=== PATIENT | male | born 1935 | race Caucasian/White ===

== ENCOUNTER → 2023-04-05 16:14 | Outpatient (REF) | payer MEDICARE, OTHER, SELFPAY ==
[2023-04-05 17:34] LABS: % Basophils 0.5 % (0-2); % Eosinophils 2.2 % (0-6); % Immature Granulocytes 0.5 % (0-0.5); % Lymphocytes 18.6 % (20.5-51.1); % Monocytes 9.3 % (1.7-9.3); % Neutrophils 68.9 % (42.2-75.2); Absolute Eosinophils 0.2 10^3/uL (0-0.7); Absolute Lymphocytes 1.4 10^3/uL (1.2-3.4); Absolute Monocytes 0.7 10^3/uL (0.1-0.6); Absolute Neutrophils 5.1 10^3/uL (1.4-6.5); Hematocrit 38.8 % (39.0-52.0); Hemoglobin 13.7 g/dL (13.0-18.0); Mean Corp Hgb Conc. 35.3 g/dL (33.0-37.0); Mean Corpuscular Hgb 32.5 pg (27.0-31.0); Mean Corpuscular Volume 91.9 fL (80.0-94.0); Mean Platelet Volume 9.9 fL (7.4-10.4); Nucleated Red Blood Cells % 0 % (-); Platelet Count 208 10^3/uL (130-400); Red Blood Cell Count 4.22 10^6/uL (4.70-6.10); White Blood Cell Count 7.4 10^3/uL (4.8-10.8)
[2023-04-05 17:57] LABS: ALT (SGPT) 26 U/L (0-50); AST (SGOT) 26 U/L (17-59); Albumin 4.3 g/dl (3.5-5.0); Alkaline Phosphatase 66 U/L (38-126); Blood Urea Nitrogen 19 mg/dl (9-20); Calcium 9.1 mg/dl (8.4-10.2); Carbon Dioxide 23 mmol/L (22-30); Chloride 104 mmol/L (98-107); Glucose 137 mg/dl (70-99); Iron 69 ug/dl (49-181); Potassium 3.6 mmol/L (3.5-5.1); Sodium 139 mmol/L (135-145); Total Bilirubin 0.9 mg/dl (0.2-1.3); Total Protein 7.3 g/dl (6.3-8.2); eGFR 48.65
[2023-04-05 18:06] LABS: Percent Saturation 22 % (20-50); Total Iron Binding Capacity 310 ug/dl (261-462)
== END ==
LOC: REG 16:14
PROVIDERS: ATTENDING PHYSICIAN Physician Assistant
DX: R05.8 Other specified cough (principal); R52 Pain, unspecified; R53.83 Other fatigue; D64.9 Anemia, unspecified
CPT/HCPCS: 36415; 71046; 80053; 82728; 83540; 83550; 85025

== ENCOUNTER → 2023-04-06 12:09 | Outpatient (REF) | payer MEDICARE, OTHER, SELFPAY ==
[2023-04-06 13:03] LABS: Urine Albumin Negative (Neg - Trace); Urine Bilirubin Negative (Negative); Urine Character Clear (Clear); Urine Color Yellow; Urine Glucose Negative (Negative); Urine Ketone Negative (Negative); Urine Leukocyte Negative (Negative); Urine Nitrite Negative (Negative); Urine Occult Blood Negative (Negative); Urine Urobilinogen Negative (Neg - 1+)
== END ==
LOC: REG 12:09
PROVIDERS: ATTENDING PHYSICIAN Physician Assistant
DX: R05.8 Other specified cough (principal); R52 Pain, unspecified; R53.83 Other fatigue; D64.9 Anemia, unspecified
CPT/HCPCS: 81003; 87086

== ENCOUNTER 2023-04-25 16:19 | Inpatient (IN) | payer MEDICARE, OTHER, SELFPAY ==
[2023-04-25] VITALS (11 sets, daily range): BP systolic 140–182; BP diastolic 66–83
[2023-04-25 12:21] LABS: % Basophils 0.3 % (0-2); % Eosinophils 2.6 % (0-6); % Immature Granulocytes 0.4 % (0-0.5); % Lymphocytes 12.9 % (20.5-51.1); % Neutrophils 66.8 % (42.2-75.2); Absolute Eosinophils 0.2 10^3/uL (0-0.7); Absolute Lymphocytes 0.9 10^3/uL (1.2-3.4); Absolute Monocytes 1.2 10^3/uL (0.1-0.6); Absolute Neutrophils 4.6 10^3/uL (1.4-6.5); Hematocrit 40.8 % (39.0-52.0); Hemoglobin 14.2 g/dL (13.0-18.0); Mean Corp Hgb Conc. 34.8 g/dL (33.0-37.0); Mean Corpuscular Hgb 32.1 pg (27.0-31.0); Mean Corpuscular Volume 92.1 fL (80.0-94.0); Mean Platelet Volume 10.1 fL (7.4-10.4); Nucleated Red Blood Cells % 0 % (-); Platelet Count 142 10^3/uL (130-400); Red Blood Cell Count 4.43 10^6/uL (4.70-6.10); Red Cell Dist. Width 13.7 % (11.5-14.5); White Blood Cell Count 6.8 10^3/uL (4.8-10.8)
[2023-04-25 12:29] LABS: ALT (SGPT) 39 U/L (0-50); AST (SGOT) 46 U/L (17-59); Albumin 4.7 g/dl (3.5-5.0); Alkaline Phosphatase 55 U/L (38-126); Blood Urea Nitrogen 21 mg/dl (9-20); Carbon Dioxide 26 mmol/L (22-30); Chloride 102 mmol/L (98-107); Glucose 128 mg/dl (70-99); Lipase 89 U/L (23-300); Potassium 3.8 mmol/L (3.5-5.1); Sodium 136 mmol/L (135-145); Total Bilirubin 0.7 mg/dl (0.2-1.3); Total Protein 7.9 g/dl (6.3-8.2); eGFR > 60.00
--- NOTE | 2023-04-25 14:07 | ED.GENMED ---
History of Present Illness
General
Chief Complaint: Abdominal Symptoms
Source: patient
Exam Limitations: none
Time Seen by Provider: 04/25/23 12:29
Nursing documentation reviewed up to this point in time: agreed with
Travel History
Have you had any contact with someone who has COVID-19?: Unable to Answer
Do you have any symptoms of coronavirus? Fever > 100 degrees, chills, cough, shortness of breath, sore throat, loss of taste or smell, muscle aches, or headache?: Unable to Answer
History of Present Illness
History of Present Illness:
88-year-old male from [place] presents to the ER for evaluation. Patient arrives via EMS. per at bedside patient does have a history of dementia. Patient over the past several days has been more confused not himself and today had several
episodes of vomiting diarrhea.
Patient awake alert. He is aware that he is at hospital he tells me his name and follows commands but he has no complaints.
Past History
Past History
ED Past Medical History: CHF, GERD, HTN, Hypercholesterolemia and Other ( Ulcerated hiatal hernia, Prostatitis, ischemic cardiomyopathy)
ED Past Surgical History: Cardiac (Biventricular ICD), Orthopedic (Hugh knee replacements) and Other (Hiatal hernia surgery)
Patient has exhibited threatening behavior?: No
PSI?: No
Social History
Tobacco: Non-smoker
Alcohol: Occasional
Drug: None
Personal:
Living: snf ([facility])
Employment: Retired
Family History
Family History: Other (Noncontributory)
Review of Systems
Review of Systems
Allergies reviewed?: Yes
Unable to obtain full review of systems at this time due to: dementia
Other source history: family
All Other Systems: ROS reviewed and negative except as documented in HPI and ROS
Constitutional: Reports fatigue
EENT: Reports no symptoms
Respiratory: Reports no symptoms
Cardiac: Reports no symptoms
ABD/GI: Reports vomiting and diarrhea
: Reports no symptoms
Musculoskeletal: Reports no symptoms
Skin: Reports no symptoms
Neurological: Reports other (increasing confusion )
Psychiatric: Reports no symptoms
Phy Exam
General Physical Exam
General Presentation: no apparent distress
General age: appears stated age
General Skin: warm and dry
General Habitus: elderly
General Mental: other (able to state name follows commands )
Cardiovascular Exam
Cardiovascular Exam: regular rate/rhythm
Pulmonary Exam
Pulmonary Exam: lungs clear and no respiratory distress
Neurological Exam
Neurological Exam: alert and other (Follows commands aware of his name and that he is in the hospital.)
Musculoskeletal Exam
Musculoskeletal Exam: full ROM
Skin Exam
Skin Exam: normal color and warm/dry
Psychiatric Exam
Psychiatric Exam: normal mood/affect
Course
Orders/Labs/Results
Orders:
Orders
04/25/23 12:08
EKG [Electrocardiogram (*1)] Urgent
Reason for Study: CAD
04/25/23 12:09
EKG- Treatment ONCE
04/25/23 12:10
Complete Blood Count/With Diff Urgent
Comprehensive Metabolic Panel Urgent
Lipase Urgent
04/25/23 14:12
COVID-19 Antigen Urgent
Source: Nasal Swab
04/25/23 14:13
Influenza A+B Rapid Molecular Urgent
LEATHA Source: Nasal Swab
Specimen Description:
04/25/23 14:20
UA Reflex to Culture [Urinalysis Reflex To Culture] Urgent
04/25/23 14:22
Straight cath- Treatment ONCE
04/25/23 15:08
NSS 500mL Bolus over 30 minutes 0.9% Sodium Chloride 500 ml [Nss] 500 ml IV BOLUS
Abnormal Lab Results
04/25/23 04/25/23
12:10 14:12
RBC 4.43 L 10^6/uL
(4.70-6.10)
MCH 32.1 H pg
(27.0-31.0)
Absolute Lymphs (auto) 0.9 L 10^3/uL
(1.2-3.4)
Absolute Monos (auto) 1.2 H 10^3/uL
(0.1-0.6)
Lymphocytes % 12.9 L %
(20.5-51.1)
Monocytes % 17.0 H %
(1.7-9.3)
BUN 21 H mg/dl
(9-20)
Glucose 128 H mg/dl
(70-99)
SARS-CoV-2 Antigen Positive A
(Negative)
04/25/23 12:10
04/25/23 12:10
Vital Signs
Initial and Last Documented VS:
Initial Vital Signs
BP
163/79
04/25/23 12:04
Last Documented Vital Signs
Temp Pulse Resp BP Pulse Ox
97.8 F 73 10 154/78 93
04/25/23 12:18 04/25/23 14:00 04/25/23 14:00 04/25/23 14:00 04/25/23 12:06
MDM/Problems Addressed
Differential Diagnosis Includes:
Not limited to viral syndrome dehydration COVID influenza
MDM/Problems Addressed:
Patient is a 88-year-old from [facility]. He lives with his staff does assist with certain things such as bathing and giving him his medications however he has not in [facility]. Patient presented with increasing confusion
weakness vomiting diarrhea for the past couple days decreased p.o. intake. Patient was found to be COVID-positive which explains his symptoms. Because he is very weak and not [facility] will admit.
Patient's labs are unremarkable.
Patient was giving small bolus of fluids
Chronic conditions affecting care:
Dementia now worsened by symptoms of COVID congestive heart failure. Patient is not tachycardic was given small bolus of fluids only
*Pulse Oximetry
Patient hypoxic: no
*EKG
Interpretation: abnormal
Heart Rate: 68
Rate: normal
Rhythm: other (Ventricular paced rhythm)
*Critical Care Note
Total Time (30-74mins, 75-104mins- exclusive of procedures): Not Applicable
ED Attending Note
-
Portions of this chart may have been created with voice recognition software.� Occasional wrong word or��sound alike� substitutions may have occurred due to the inherent limitations of voice recognition software.
Discharge Plan
Departure
Patient Disposition: Admit
Date of Disposition: 04/25/23
Time of Disposition: 15:01
Admit to: Med/Surg
Admit to doctor: hospitalist
Presentation/result/management discussed w/ accepting MD/DO: Hospitalist
Patient with high blood pressure during this ER visit?: Yes
Condition: Fair
Covid-19: Confirmed COVID-19
Discharge Problem:
COVID-19
Prescriptions:
No Action
simvastatin 40 MG tablet
40 mg PO QPM
omeprazole 40 MG capsule,delayed release(DR/EC)
40 mg PO BID
loperamide 2 MG capsule
2 mg PO Q4HPRN MDD 16mg(8tabs)/24hrs PRN (Reason: diarrhea)
acetaminophen [Tylenol Extra Strength] 500 MG tablet
1,000 mg PO BIDPRN PRN (Reason: mild pain)
tamsulosin 0.4 MG capsule
0.8 mg PO HS
nifedipine 60 MG tablet extended release
60 mg PO DAILY Qty: 30 0RF
sennosides [senna] 1 TABLET tablet
1 tab PO BIDPRN PRN (Reason: constipation)
metoprolol succinate [Toprol XL] 50 mg Tablet Extended Release 24 Hr
50 mg PO DAILY
donepezil 5 mg Tablet
5 mg PO DAILY
albuterol sulfate 2.5 mg /3 mL (0.083 %) Solution For Nebulization
2.5 mg INHALATION R Q4HPRN PRN (Reason: sob)
polyethylene glycol 3350 [Miralax] 17 gram Powder In Packet
17 g PO DAILYPRN PRN (Reason: constipation)
nystatin [Nyamyc] 100,000 unit/gram Powder
1 applic TOPICAL BIDPRN PRN (Reason: rash)
amoxicillin-pot clavulanate 875-125 mg Tablet
1 tab PO Q12 5 Days Qty: 10 0RF
furosemide [Lasix] 40 mg tablet
40 mg PO DAILY 30 Days Qty: 30 0RF
potassium chloride 20 mEq tablet extended release
20 meq PO DAILY 30 Days Qty: 30 0RF
Rx Instructions:
hold if not taking lasix
Referrals:
Richie Fonseca MD [Family Provider] -
Interventions
Interventions:
*Risk Screen - Suicide Last Done: 04/25/23 12:16
*General Assessment Last Done: 04/25/23 12:16
*Neglect/Abuse Screening Last Done: 04/25/23 12:16
ED- Fall Risk Assessment Last Done: 04/25/23 12:13
*ED COVID-19 Vaccine History Last Done: 04/25/23 12:18
WI-Dvnqyk-Oeguvfxiej Assessment Last Done: 04/25/23 12:13
[2023-04-25 14:25] LABS: COVID-19 Antigen Positive (Negative)
[2023-04-25] MEDS: NSS 500 IV (15:11)
--- NOTE | 2023-04-25 15:33 | HPS.HSE ---
Family Physician
-
Family Physician: Richie Fonseca
Chief Complaint
-
weakness
History of Present Illness
Mr. Parviz Howell is a 88 yo man with hx dementia (personal care resident at [place]), HFrEF s/p ICD, LBBB, CAD, HTN, HLD, left subclavian chronic vneous thrombosis, BPH presents to the ER with weakness and confusion.
History obtained from patient's as he's not able to elaborate. Patient has had progressive dementia. He developed URI symptoms on Sunday. He became increasingly disoriented and seems unbalanced. He normally walks with a walker. Patient had
several episodes of vomiting and diarrhea. + shortness of breath, + cough.
Medical History
Past Medical History
Past Medical History: Reports Other (nonischemic cardiomyopathy status post ICD, left bundle branch block, coronary artery disease, hypertension, hyperlipidemia, left subclavian chronic venous thrombosis, macular degeneration of right eye,
degenerative disc disease, fatty liver, GERD, melanoma, BPH,)
Past Surgical History: Reports Other ( Cardiac (Biventricular ICD), Orthopedic (Hugh knee replacements) and Other (Hiatal hernia surgery))
Social History
Tobacco: Non-smoker
Alcohol: None
Drug: None
Family History
Family History: Not pertinent
Allergies / Home Medications
Allergies reflects when Allergies were last updated in [facility].
Home Medications with original date entered in [facility]
Allergy/Medication List:
Allergies
Allergy/AdvReac Type Severity Reaction Status Date / Time
No Known Allergies Allergy Verified 04/25/23 12:11
Home Medications
simvastatin 40 mg tablet 40 mg PO QPM High cholesterol 03/07/10
omeprazole 40 mg capsule,delayed release 40 mg PO BID Gastrointestinal issue 04/07/16
acetaminophen 500 mg tablet (Tylenol Extra Strength) 1,000 mg PO BIDPRN PRN mild pain 05/26/21
tamsulosin 0.4 mg capsule 0.4 mg PO BID Urinary issue 05/26/21
nifedipine 60 mg tablet,extended release 60 mg PO DAILY #30 tabs 05/31/21
metoprolol succinate 50 mg tablet,extended release 24 hr (Toprol XL) 50 mg PO DAILY Blood Pressure 06/16/22
donepezil 5 mg tablet 5 mg PO DAILY Neurological Condition 01/26/23
furosemide 40 mg tablet (Lasix) 40 mg PO DAILY 30 days #30 tabs 01/30/23
aspirin 81 mg chewable tablet 81 mg PO DAILY 04/25/23
Review of Systems
-
Unable to obtain full review of systems at this time due to: Dementia
History Source: Patient
A 12 point ROS was completed and negative except as noted: Yes
Physical Exam
Vital Signs
Vital Signs
Temp Pulse Resp BP Pulse Ox
98 F 73 16 147/69 93
04/25/23 15:14 04/25/23 15:00 04/25/23 15:00 04/25/23 15:00 04/25/23 12:06
Physical Exam
General: Well Developed, Well Nourished and No Apparent Distress
HEENT: NormoCephalic, Moist mucous membranes and Atraumatic
Respiratory: Rales
Cardiac: S1/S2 and Regular Rhythm; No Murmur or Rub
GI: Soft, Non Tender, Non Distended and Normal Bowel Sounds; No Organomegaly
Rectal: Deferred by Provider
Musculoskeletal: No Clubbing, No Cyanosis and No Edema
Skin: No Rash
Neuro: Nonfocal/grossly intact
Psych: Calm, Confused and Apparent Dementia
Laboratory Results
-
04/25/23 12:10
04/25/23 12:10
Laboratory Results
Total Bilirubin 0.7 mg/dl (0.2-1.3) 04/25/23 12:10
AST 46 U/L (17-59) 04/25/23 12:10
ALT 39 U/L (0-50) 04/25/23 12:10
Alkaline Phosphatase 55 U/L (38-126) 04/25/23 12:10
Lipase 89 U/L (23-300) 04/25/23 12:10
Data Reviewed
-
Diagnostic Radiology: Report Reviewed by me
Lab Data: Labs Reviewed by me
Impression/Plan
-
Mr. Parviz Howell is a 88 yo man with hx dementia (personal care resident at [place]), HFrEF s/p ICD, LBBB, CAD, HTN, HLD, left subclavian chronic vneous thrombosis, BPH presents to the ER with weakness and confusion. Patient had several episodes
of vomiting and diarrhea.
Triage VS: T 97.8, P 73, RR 10, BP 154/78, SpO2 93%
LABS: WBC 6.8, Hg 14.2, PLT 142, Na 136, K+ 3.8, Cl 102, BUN 21, Cr 0.8, liver enzymes WNL, covid +, flu negative.
MAR: 1L IVF
Acute hypoxic respiratory insufficiency
Covid-19
Weakness
Vomiting/Diarrhea
-patient on 2L O2, saturating 93%
-admit to tele
-start decadron/remdesivir
-vitamin D
-PT/OT
-IVF given GI volume loss
-hold DIRECTOR OF PROGRAMMING lasix
Essential HTN
-DIRECTOR OF PROGRAMMING Metoprolol
-DIRECTOR OF PROGRAMMING Nifedipine
GERD
-DIRECTOR OF PROGRAMMING PPI
HLD
-DIRECTOR OF PROGRAMMING statin
CAD
-DIRECTOR OF PROGRAMMING asa/statin
BPH
-DIRECTOR OF PROGRAMMING Flomax
DVT PPx lovenox subQ
DNR - discussed with on admission
[2023-04-25] MEDS: DECADRON 6 MG IV (16:45)
[2023-04-25 17:31] LABS: Urine Albumin Trace (Neg - Trace); Urine Bilirubin Negative (Negative); Urine Character Clear (Clear); Urine Color Yellow; Urine Glucose Negative (Negative); Urine Ketone 1+ (Negative); Urine Leukocyte Negative (Negative); Urine Nitrite Negative (Negative); Urine Occult Blood Negative (Negative); Urine Urobilinogen Negative (Neg - 1+)
--- NOTE | 2023-04-25 18:27 | PTCARENOTE ---
Spoke with Symone [phone] for information on patient. Admissions assessment completed. states that she can be reached with any further questions at this number.
[2023-04-25] MEDS: LR 1000 IV (19:33)
[2023-04-25] MEDS: LIPITOR 20 MG PO (19:34)
[2023-04-25] MEDS: VEKLURY 250 MG IV (19:34)
[2023-04-25] MEDS: NSS 30 IV (19:34)
[2023-04-25] MEDS: MUCINEX 600 MG PO (19:34)
[2023-04-25] MEDS: PROTONIX 40 MG PO (19:35)
[2023-04-25] MEDS: LOVENOX 40 MG SC (19:35)
[2023-04-25] MEDS: FLOMAX 0.800000000000000044 MG PO (21:59)
[2023-04-26] VITALS (7 sets, daily range): BP systolic 137–158; BP diastolic 60–74; PULSE 82; O2SAT 96; BMI 33.6
[2023-04-26 06:16] LABS: % Immature Granulocytes 0.4 % (0-0.5); % Lymphocytes 13.1 % (20.5-51.1); % Monocytes 11.6 % (1.7-9.3); % Neutrophils 74.9 % (42.2-75.2); Absolute Lymphocytes 0.7 10^3/uL (1.2-3.4); Absolute Monocytes 0.7 10^3/uL (0.1-0.6); Absolute Neutrophils 4.2 10^3/uL (1.4-6.5); Hematocrit 37.9 % (39.0-52.0); Hemoglobin 13.1 g/dL (13.0-18.0); Mean Corp Hgb Conc. 34.6 g/dL (33.0-37.0); Mean Corpuscular Hgb 32.8 pg (27.0-31.0); Mean Corpuscular Volume 94.8 fL (80.0-94.0); Mean Platelet Volume 10.4 fL (7.4-10.4); Nucleated Red Blood Cells % 0 % (-); Platelet Count 132 10^3/uL (130-400); Red Cell Dist. Width 13.2 % (11.5-14.5); White Blood Cell Count 5.6 10^3/uL (4.8-10.8)
[2023-04-26 06:55] LABS: ALT (SGPT) 25 U/L (0-50); AST (SGOT) 29 U/L (17-59); Albumin 3.5 g/dl (3.5-5.0); Alkaline Phosphatase 47 U/L (38-126); Blood Urea Nitrogen 20 mg/dl (9-20); Calcium 8.5 mg/dl (8.4-10.2); Carbon Dioxide 26 mmol/L (22-30); Chloride 101 mmol/L (98-107); Estimated Creatinine Clearance 72 ml/min; Glucose 119 mg/dl (70-99); Magnesium 2.1 mg/dl (1.6-2.3); Potassium 3.4 mmol/L (3.5-5.1); Sodium 137 mmol/L (135-145); Total Bilirubin 0.5 mg/dl (0.2-1.3); Total Protein 6.2 g/dl (6.3-8.2); eGFR > 60.00
--- NOTE | 2023-04-26 08:00 | W.PN.HOSP.TC ---
Today's Communication/Plan
-
PT/OT
decadron/remdesivir
wean O2 as able
Assessment / Plan
Assessment / Plan
Mr. Parviz Howell is a 88 yo man with hx dementia (personal care resident at [place]), HFrEF s/p ICD, LBBB, CAD, HTN, HLD, left subclavian chronic vneous thrombosis, BPH presents to the ER with weakness and confusion.� Patient had several episodes
of vomiting and diarrhea.
Triage VS: T 97.8, P 73, RR 10, BP 154/78, SpO2 93%
LABS: WBC 6.8, Hg 14.2, PLT 142, Na 136, K+ 3.8, Cl 102, BUN 21, Cr 0.8, liver enzymes WNL, covid +, flu negative.
MAR: 1L IVF
Acute hypoxic respiratory insufficiency
Covid-19
Weakness
Vomiting/Diarrhea
-patient on 2L O2, saturating 93%
-admit to tele
-decadron/remdesivir day 2
-vitamin D
-PT/OT
-IVF off, patient eating/drinking well
-hold IMPLEMENTATION ADVISOR lasix one more day
Essential HTN
-IMPLEMENTATION ADVISOR Metoprolol
-IMPLEMENTATION ADVISOR Nifedipine
GERD
-IMPLEMENTATION ADVISOR PPI
HLD
-IMPLEMENTATION ADVISOR statin
CAD
-IMPLEMENTATION ADVISOR asa/statin
BPH
-IMPLEMENTATION ADVISOR Flomax
DVT PPx lovenox subQ
DNR - discussed with on admission
Anticipated Discharge: 24 - 48 hours
Subjective/Interval History
-
Date of Service: April 26, 2023
patient is feeling okay
no new complaints
wants breakfast
forgot why he is here in hospital
Objective Data
-
Labs:
Laboratory Results
04/26/23
05:37
WBC 5.6
Hgb 13.1
Hct 37.9 L
Plt Count 132
Sodium 137
Potassium 3.4 L
Chloride 101
Carbon Dioxide 26
BUN 20
Creatinine 0.8
Glucose 119 H
Calcium 8.5
Total Bilirubin 0.5
AST 29
ALT 25
Alkaline Phosphatase 47
Vital Signs:
Vital Signs
Temp Pulse Resp BP Pulse Ox
97.3 F 64 18 137/67 95
04/26/23 03:05 04/26/23 03:05 04/26/23 03:05 04/26/23 03:05 04/26/23 03:05
I&O
04/25/23 04/26/23 04/27/23
06:59 06:59 06:59
Intake Total 1480 / 1480
Balance 1480 / 1480
Review of Systems
-
Unable to obtain full review of systems at this time due to: Dementia
History Source: Patient
Physical Exam
-
General: No Apparent Distress
HEENT: PERRLA
Respiratory: Non Labored Respirations
Cardiac: Regular Rhythm and S1/S2
GI: Soft and Nontender
Musculoskeletal: No Edema
Neuro: Awake and Alert; Negative Oriented
Psych: Calm and Apparent Dementia
Data Reviewed
-
Diagnostic Radiology: Report Reviewed by me
Labs: Labs Reviewed by me
[2023-04-26] MEDS: PROCARDIA XL (EXTENDED RELEASE) 60 MG PO (09:29)
[2023-04-26] MEDS: MUCINEX 600 MG PO ×2 (09:29→20:09)
[2023-04-26] MEDS: TOPROL XL 50 MG PO (09:29)
[2023-04-26] MEDS: LOW STRENGTH ASPIRIN 81 MG PO (09:30)
[2023-04-26] MEDS: DECADRON 6 MG IV (09:31)
[2023-04-26] MEDS: ARICEPT 5 MG PO (09:31)
[2023-04-26] MEDS: VITAMIN D3 (cholecalciferol) 50 MCG PO (09:31)
[2023-04-26] MEDS: PROTONIX 40 MG PO ×2 (09:31→20:08)
[2023-04-26] MEDS: KCL 40 MEQ PO (09:35)
--- NOTE | 2023-04-26 10:41 | CM ---
Addendum entered by Erna Miles 04/26/23 11:08:
updated re prescriptions.
Original Note:
TC to patients spouse (she also tested positive for Covid) and is feeling under the weather.
Patient lives with spouse in apartment at [facility], assisted living.
Patient with dementia at baseline, ambulates with RW.
assists with needs.
patient had [facility] in the past and spouse agreeable to [facility].
Per spouse family can transport home.
TC to Kianna from [facility], she asked if new medication orders be sent home via paper script and they will figure out how to fill. (either their pharmacy or [facility]) since is ill and may not be able to pick up attendant.
Kianna agrees to [facility].
Plan: home with VN. TT to VN
--- NOTE | 2023-04-26 12:01 | VNURNOTE ---
Home health liaison called patient's spouse Symone to discuss [facility] services, visit frequency/scheduling. Spouse states she has COVID and will not be able to care for her for 'a few days' because she does not feel well herself. States she is
agreeable to caring for him when she feels better. Spouse would like follow-up phone call tomorrow to discuss discharge planning. Home health liaison to follow up with case management at and spouse.
[2023-04-26] MEDS: VEKLURY 250 MG IV (13:09)
[2023-04-26] MEDS: NSS 30 IV (14:14)
--- NOTE | 2023-04-26 15:33 | PN.CDI ---
CDI
- -
CDI:
Physician Documentation Request
Admit Date: 04/25/23 16:19
Dear Doctor Alexandro,
Patient presented with covid, weakness, vomiting/diarrhea.
History of HFrEF noted. Lasix being held.
Please clarify which of the following accurately represents the acuity of the HFrEF:
Chronic
Acute
Acute on chronic
Other
Use of terms such as suspected, likely, concern for, or probable (associated with a specific diagnosis that is being evaluated, monitored, or treated as if it exists) are acceptable and can be coded in the inpatient setting, when documented at the
time of discharge.
Thank you,
Viji Cazares RN, BSN
CDI Specialist
tiger text
Please use your independent medical judgment in providing your response.
[2023-04-26] MEDS: ProAIR HFA INHALER 2 PUFF INH (16:30)
[2023-04-26] MEDS: LIPITOR 20 MG PO (17:17)
[2023-04-26] MEDS: FLOMAX 0.800000000000000044 MG PO (20:08)
[2023-04-26] MEDS: LOVENOX 40 MG SC (20:08)
[2023-04-27 03:17] VITALS: BP 153/77
[2023-04-27 05:37] VITALS: BMI 32.8
[2023-04-27 07:00] VITALS: BP 151/68
--- NOTE | 2023-04-27 08:42 | W.PN.HOSP.TC ---
Addendum entered and electronically signed by Bonnie Mc MD 04/27/23 09:09:
updated
patient has gotten vaccinated for Covid per , last vaccine in 2022
no hx bleeding issues per
Original Note:
Today's Communication/Plan
-
O2 up to 6L
continue decadron/remdesivir
DVT PPx Lovenox
Pulm consult
Assessment / Plan
Assessment / Plan
Mr. Parviz Howell is a 88 yo man with hx dementia (personal care resident at [place]), HFrEF s/p ICD, LBBB, CAD, HTN, HLD, left subclavian chronic venous thrombosis, BPH presents to the ER with weakness and confusion.� Patient had several episodes
of vomiting and diarrhea.
Triage VS: T 97.8, P 73, RR 10, BP 154/78, SpO2 93%
LABS: WBC 6.8, Hg 14.2, PLT 142, Na 136, K+ 3.8, Cl 102, BUN 21, Cr 0.8, liver enzymes WNL, covid +, flu negative.
MAR: 1L IVF
Acute hypoxic respiratory insufficiency
Covid-19
Weakness
Vomiting/Diarrhea
-admitted to tele
-decadron/remdesivir day 3
-increased O2 needs overnight from 2 to 6L
-continue DVT PPx
-Pulm consult
-patient without pleuritic chest pain or change in exam to suggest PE
-repeating labs now
Heart Failure preserved EF, hx cardiomyopathy with recovered EF
-resume TECHNICIAN INVENTORY SPECIALIST lasix 40mg PO QD
Essential HTN
-TECHNICIAN INVENTORY SPECIALIST Metoprolol
-TECHNICIAN INVENTORY SPECIALIST Nifedipine
GERD
-TECHNICIAN INVENTORY SPECIALIST PPI
HLD
-TECHNICIAN INVENTORY SPECIALIST statin
CAD
-TECHNICIAN INVENTORY SPECIALIST asa/statin
BPH
-TECHNICIAN INVENTORY SPECIALIST Flomax
DVT PPx lovenox subQ
DNR - discussed with on admission
Anticipated Discharge: > 48 hours
Subjective/Interval History
-
Date of Service: April 27, 2023
no new complaints
stating he wants to go home
Objective Data
-
Labs:
Laboratory Results
04/27/23
08:29
WBC Pending
Hgb Pending
Hct Pending
Plt Count Pending
Sodium Pending
Potassium Pending
Chloride Pending
Carbon Dioxide Pending
BUN Pending
Creatinine Pending
Glucose Pending
Calcium Pending
Total Bilirubin Pending
AST Pending
ALT Pending
Alkaline Phosphatase Pending
Vital Signs:
Vital Signs
Temp Pulse Resp BP Pulse Ox
98.1 F 53 16 151/68 95
04/27/23 07:00 04/27/23 07:00 04/27/23 07:00 04/27/23 07:00 04/27/23 07:00
I&O
04/26/23 04/27/23 04/28/23
06:59 06:59 06:59
Intake Total 1480 / 1480 1200 / 1200
Output Total 1070 / 1070
Balance 1480 / 1480 130 / 130
Review of Systems
-
History Source: Patient
All other systems: Reviewed and negative
Physical Exam
-
General: No Apparent Distress
HEENT: PERRLA
Respiratory: Non Labored Respirations; Negative Wheezes
Cardiac: Regular Rhythm and S1/S2
GI: Soft and Nontender
Musculoskeletal: No Edema
Skin: Warm and Dry; Negative Rash
Neuro: Awake and Alert
Psych: Calm
Data Reviewed
-
Diagnostic Radiology: Report Reviewed by me
Labs: Labs Reviewed by me
[2023-04-27 09:07] LABS: % Immature Granulocytes 0.5 % (0-0.5); % Lymphocytes 18.9 % (20.5-51.1); % Monocytes 9.1 % (1.7-9.3); % Neutrophils 71.5 % (42.2-75.2); Absolute Lymphocytes 1.2 10^3/uL (1.2-3.4); Absolute Monocytes 0.6 10^3/uL (0.1-0.6); Absolute Neutrophils 4.6 10^3/uL (1.4-6.5); Hematocrit 36.7 % (39.0-52.0); Hemoglobin 12.7 g/dL (13.0-18.0); Mean Corp Hgb Conc. 34.6 g/dL (33.0-37.0); Mean Corpuscular Hgb 31.9 pg (27.0-31.0); Mean Corpuscular Volume 92.2 fL (80.0-94.0); Mean Platelet Volume 9.8 fL (7.4-10.4); Nucleated Red Blood Cells % 0 % (-); Platelet Count 146 10^3/uL (130-400); Red Blood Cell Count 3.98 10^6/uL (4.70-6.10); Red Cell Dist. Width 13.2 % (11.5-14.5); White Blood Cell Count 6.4 10^3/uL (4.8-10.8)
[2023-04-27] MEDS: ARICEPT 5 MG PO (09:07)
[2023-04-27] MEDS: PROTONIX 40 MG PO ×2 (09:07→20:27)
[2023-04-27] MEDS: LOW STRENGTH ASPIRIN 81 MG PO (09:07)
[2023-04-27] MEDS: TOPROL XL 50 MG PO (09:07)
[2023-04-27] MEDS: PROCARDIA XL (EXTENDED RELEASE) 60 MG PO (09:07)
[2023-04-27] MEDS: MUCINEX 600 MG PO ×2 (09:07→20:27)
[2023-04-27] MEDS: VITAMIN D3 (cholecalciferol) 50 MCG PO (09:07)
[2023-04-27] MEDS: DESENEX/MITRAZOL/ZEASORB 1 APPLIC TOPICAL ×2 (09:08→20:29)
[2023-04-27] MEDS: DECADRON 6 MG IV (09:08)
[2023-04-27] MEDS: LASIX 40 MG PO (09:10)
[2023-04-27 09:20] LABS: ALT (SGPT) 26 U/L (0-50); AST (SGOT) 30 U/L (17-59); Albumin 3.7 g/dl (3.5-5.0); Alkaline Phosphatase 49 U/L (38-126); Blood Urea Nitrogen 23 mg/dl (9-20); Calcium 8.4 mg/dl (8.4-10.2); Carbon Dioxide 26 mmol/L (22-30); Chloride 104 mmol/L (98-107); Estimated Creatinine Clearance 71 ml/min; Glucose 94 mg/dl (70-99); Potassium 3.4 mmol/L (3.5-5.1); Sodium 135 mmol/L (135-145); Total Bilirubin 0.5 mg/dl (0.2-1.3); Total Protein 6.3 g/dl (6.3-8.2); eGFR > 60.00
--- NOTE | 2023-04-27 09:31 | VNURNOTE ---
Follow-up phone call made to spouse Symone. Symone is agreeable [facility] services and is still hoping her will be in the hospital 'a few more days' so that she can also recover from Covid. states personal care nurses assist with patient's
medications. VN visit scheduling/frequency, homebound status and pet policy explained. understands home visits will be 1-2 times a week to assess and teach medical management. Symone aware a visiting nurse will contact them for start of care
within 1-2 days after discharge from . [facility] Referral completed in care port
--- NOTE | 2023-04-27 09:34 | PN.CDI ---
CDI
- -
CDI:
Physician Documentation Request
Admit Date: 04/25/23 16:19
Dear Doctor Alexandro,
Patient admitted with COVID.
Hospitalist progress notes state Acute hypoxic respiratory insufficiency.
Documented vital signs show patient's to be requiring 6 L o2
Please clarify which of the following accurately represents the patient's respiratory status:
Acute respiratory failure - please specify type
Hypoxia
Other
Additional information for Respiratory Failure:
Recognized criteria for Respiratory Failure (Source: [facility] Jan 2013)
ABGs: (1 or more) Symptoms Please indicate type if known
1. p)2 <60 or RA SPO2 <91% on RA 1. Tachypnea, SOB, dyspnea Hypoxic
2. pCO2 50 and pH <7.35 2. Use of accessory muscles Hypercapnic
3. pO2 decrease of pCO2 increase by 3. Pallor or cyanosis Hypoxic and Hypercapnic
10 mmHg from baseline if known 4. Anxiety or restlessness Unable to determine
5. Unable to speak in full sentences
Supplemental O2 of > 40% (5LPM) Intubation is not required
Use of terms such as suspected, likely, concern for, or probable (associated with a specific diagnosis that is being evaluated, monitored, or treated as if it exists) are acceptable and can be coded in the inpatient setting, when documented at the
time of discharge.
Thank you,
Viji Cazares RN, BSN
CDI Specialist
tiger text
Please use your independent medical judgment in providing your response.
--- NOTE | 2023-04-27 09:49 | CON.PUL ---
Consultation
Consultation Request
Date/Time Consultation Requested: 04/27/2023-10 AM
Date/Time Consultation Performed: 04/27/2023-10:30 AM
Requesting Provider: Dr. Mc
Performing Provider: Dr. Newton
Reason for Consultation: Hypoxemia
Medical History
-
Chief Complaint: Shortness of breath
History of Present Illness:
88-year-old male with underlying dementia, chronic heart failure, CAD, hypertension, hyperlipidemia previously vaccinated and presented with hypoxemia and covid positive-pulmonary consulted for ongoing hypoxemia 04/27/2023. He is pleasantly
confused, not sure if he ever got vaccines. He denies any shortness of breath at rest, lying flat, no chest pain, chest tightness, productive cough, abdominal pain, reflux or lower extremity swelling. I do believe this history is somewhat
unreliable. only wants to do is 'go home'.
Past Medical History
Past Medical History: None (Dementia-resides at [facility]. Heart failure reduced EF. Biventricular ICD. CAD. Hypertension. Hyperlipidemia. Left subclavian chronic venous thrombosis. BPH. Bilateral knee replacement. Hiatal hernia.)
Social History
Tobacco: Non-smoker
Alcohol: None
Personal:
Living: Custodial
Occupational Exposures: No known asbestos exposure
Environmental Exposures: No known tuberculosis exposure
Family History
Family History: Reviewed & Not Pertinent
Allergies / Home Medications
Allergies
Allergy/AdvReac Type Severity Reaction Status Date / Time
No Known Allergies Allergy Verified 04/25/23 12:11
Home Medications
Medication Instructions Recorded Confirmed Last Taken Type
simvastatin 40 mg tablet 40 mg PO QPM High cholesterol 03/07/10 04/25/23 06/15/22 20:00 History
omeprazole 40 mg capsule,delayed 40 mg PO BID Gastrointestinal issue 04/07/16 04/25/23 06/15/22 18:00 History
release
acetaminophen 500 mg tablet 1,000 mg PO BIDPRN PRN mild pain 05/26/21 04/25/23 Unknown History
(Tylenol Extra Strength)
tamsulosin 0.4 mg capsule 0.8 mg PO HS Urinary issue 05/26/21 04/25/23 06/15/22 20:00 History
nifedipine 60 mg tablet,extended 60 mg PO DAILY #30 tabs 05/31/21 04/25/23 06/16/22 08:00 Rx
release
metoprolol succinate 50 mg 50 mg PO DAILY Blood Pressure 06/16/22 04/25/23 06/16/22 08:00 History
tablet,extended release 24 hr
(Toprol XL)
donepezil 5 mg tablet 5 mg PO DAILY Neurological 01/26/23 04/25/23 Unknown History
Condition
furosemide 40 mg tablet (Lasix) 40 mg PO DAILY 30 days #30 tabs 01/30/23 04/25/23 Unknown Rx
albuterol sulfate 2.5 mg/3 mL 2.5 mg inhalation R Q4HPRN PRN 04/25/23 04/25/23 Unknown History
(0.083 %) solution for nebulization shortness of breath
aspirin 81 mg chewable tablet 81 mg PO DAILY 04/25/23 04/25/23 Unknown History
dextromethorphan-guaifenesin 10 10 ml PO Q6HPRN PRN cough 04/25/23 04/25/23 Unknown History
mg-100 mg/5 mL oral syrup
Review of Systems
-
Unable to Obtain full review of systems at this time due to: Other (Per HPI)
Vitals / Labs / Diagnostic Testing
Vital Signs
Temp Pulse Resp BP Pulse Ox
98.1 F 53 16 151/68 95
04/27/23 07:00 04/27/23 09:10 04/27/23 07:00 04/27/23 09:10 04/27/23 07:00
Lab Data
04/27/23 08:53
04/27/23 08:53
Microbiology
04/26/23 01:25 Nose MRSA Screen - Final
No Methicillin Resistant Staphylococcus aureus isolated.
04/25/23 14:13 Nasal Swab Influenza Types A & B (FLO) - Final
Negative for Influenza A & B, NAAT
Negative results must be combined with clinical observations
and patient history.
Nucleic Acid Amplification test (NAAT)performed on the
[employer] platform.
Diagnostic Testing:
Physical Exam
-
Exam:
Well-nourished and well-developed in no apparent distress
HEENT-atraumatic, normocephalic
Neck-supple, no JVD, no bruit
Heart-regular rate and rhythm-no murmurs, rubs or gallops
Chest-clear to auscultation, no wheezes, crackles
Back-no tenderness
Abdomen-soft, nontender, nondistended, no hepatosplenomegaly
Extremities-no cyanosis, clubbing, edema and good peripheral pulses
Integument-intact, no rashes, lesions or ecchymosis
Neurology-alert and oriented, nonfocal motor and sensory exam
Assessment
-
88-year-old male with underlying dementia, chronic heart failure, CAD, hypertension, hyperlipidemia previously vaccinated and presented with hypoxemia and covid positive-pulmonary consulted for ongoing hypoxemia 04/27/2023.
Assessment
Hypoxemic respiratory failure
Covid positive-04/25/2023-previously vaccinated
Heart failure -based on diastolic dysfunction
Mild dhpyea-ywxsasavoy-vqtrgkiivy 12.7
Hypokalemia
Hyperglycemia
Conditions present prior to admission:
Dementia-resides at [facility].
Heart failure reduced EF.
Biventricular ICD.
CAD.
Hypertension.
Hyperlipidemia.
Left subclavian chronic venous thrombosis.
BPH.
Bilateral knee replacement. Hiatal hernia.
DNR
Plan
History in this vaccinated person with mild parenchymal opacifications and basilar atelectasis and probable mild fluid overload suggests heart failure, likely contributing more than covid to the patient's hypoxemia.
Supplemental oxygen as needed.
Assessment discharge supplemental oxygen needs.
Inhalers if needed-currently not bronchospastic.
Isolation protocol.
Prone positioning. If able.
Decadron continues-Decadron 6 mg daily
Remdesivir initiated by primary service-if rapidly improves with diuresis, then could discontinue, suspect Plaxlovid would be even better.
Mucolytic's
Attempt diuresis-currently on Lasix 40 mg
Replace potassium.
Consider intravenous diuresis.
Monitor weight, lower extremity edema, and renal function
DVT prophylaxis-on Lovenox 40 mg daily-would not intensify.
GI prophylaxis-on pantoprazole.
Nutrition
Early mobilization/physical therapy.
Reviewed with Dr. Mc
Diagnostic data:
Chest x-ray 04/25/2023-lungs appear hyperinflated, mild parenchymal opacification within lower lungs suggesting atelectasis
Chest x-ray 04/27/2023-hazy opacifications at the lung bases, no significant change
Echocardiogram 01/29/2023-EF 55-60%, stage I diastolic dysfunction, no valvular disease
Data Reviewed
-
EKG: Report reviewed by me
Radiology: Image personally visualized and interpreted and Report reviewed by me
Medical Tests (Nuc Med, Echo etc): Report reviewed by me
Labs: Labs reviewed by me
Old Records: Reviewed
Total Time Spent with Patient (in minutes): 65
[2023-04-27] MEDS: KCL 40 MEQ PO (10:37)
[2023-04-27 11:00] VITALS: BP 120/73
[2023-04-27] MEDS: ProAIR HFA INHALER 2 PUFF INH ×3 (11:46→20:40)
--- NOTE | 2023-04-27 11:52 | CM ---
Addendum entered by Bev Puente RN 04/27/23 16:10:
IMM signed and placed on chart.
Original Note:
Reviewed the chart notes. Patient is currently on supplemental O2 @ 6L/min. PT recommending home health at discharge. CM continues to be available to patient/family and is monitoring medical plan for needs at discharge.
Plan: Discharge back to [facility] with VN services when medically stable.
[2023-04-27] MEDS: VEKLURY 250 MG IV (13:22)
[2023-04-27] MEDS: NSS 30 IV (13:23)
[2023-04-27 15:00] VITALS: BP 129/61
[2023-04-27] MEDS: LIPITOR 20 MG PO (18:17)
[2023-04-27 20:12] VITALS: BP 165/73
[2023-04-27] MEDS: LOVENOX 40 MG SC (20:27)
[2023-04-27 20:33] VITALS: BP 158/74
[2023-04-27] MEDS: FLOMAX 0.800000000000000044 MG PO (21:00)
[2023-04-28] VITALS (7 sets, daily range): BP systolic 135–168; BP diastolic 60–77; BMI 33.4
[2023-04-28] MEDS: ProAIR HFA INHALER 2 PUFF INH ×4 (07:41→19:46)
[2023-04-28] MEDS: VITAMIN D3 (cholecalciferol) 50 MCG PO (08:56)
[2023-04-28] MEDS: MUCINEX 600 MG PO ×2 (08:56→20:17)
[2023-04-28] MEDS: PROTONIX 40 MG PO ×2 (08:56→20:18)
[2023-04-28] MEDS: LOW STRENGTH ASPIRIN 81 MG PO (08:56)
[2023-04-28] MEDS: ARICEPT 5 MG PO (08:56)
[2023-04-28] MEDS: LASIX 40 MG PO (08:57)
[2023-04-28] MEDS: TOPROL XL 50 MG PO (08:58)
[2023-04-28] MEDS: DECADRON 6 MG IV (08:58)
[2023-04-28] MEDS: PROCARDIA XL (EXTENDED RELEASE) 60 MG PO (08:58)
[2023-04-28] MEDS: DESENEX/MITRAZOL/ZEASORB 1 APPLIC TOPICAL ×2 (09:11→20:19)
--- NOTE | 2023-04-28 09:44 | W.PN.HOSP.TC ---
Today's Communication/Plan
-
continue decadron/remdesivir
continue oral lasix
wean O2 as able
Assessment / Plan
Assessment / Plan
Mr. Parviz Howell is a 88 yo man with hx dementia (personal care resident at [place]), HFrEF s/p ICD, LBBB, CAD, HTN, HLD, left subclavian chronic venous thrombosis, BPH presents to the ER with weakness and confusion.� Patient had several episodes
of vomiting and diarrhea.
Triage VS: T 97.8, P 73, RR 10, BP 154/78, SpO2 93%
LABS: WBC 6.8, Hg 14.2, PLT 142, Na 136, K+ 3.8, Cl 102, BUN 21, Cr 0.8, liver enzymes WNL, covid +, flu negative.
MAR: 1L IVF
Acute hypoxic respiratory failure
Covid-19
Weakness
Vomiting/Diarrhea
-admitted to tele
-decadron/remdesivir day 4
-increased O2 needs overnight from 2 to 6L; patient now oscillating between 4-6L
-continue DVT PPx
-Pulm consult appreicated
-patient without pleuritic chest pain or change in exam to suggest PE
Heart Failure preserved EF, hx cardiomyopathy with recovered EF
Acute on chronic HFpEF exacerbation (s/p fluids first hospital night)
-resume LAB ENGINEER lasix 40mg PO QD - patient with good response
Essential HTN
-LAB ENGINEER Metoprolol
-LAB ENGINEER Nifedipine
GERD
-LAB ENGINEER PPI
HLD
-LAB ENGINEER statin
CAD
-LAB ENGINEER asa/statin
BPH
-LAB ENGINEER Flomax
DVT PPx lovenox subQ
DNR - discussed with on admission
Anticipated Discharge: > 48 hours
Subjective/Interval History
-
Date of Service: April 28, 2023
feeling well
no new complaints
Objective Data
-
Labs:
Laboratory Results
04/28/23
09:14
Sodium Pending
Potassium Pending
Chloride Pending
Carbon Dioxide Pending
BUN Pending
Creatinine Pending
Glucose Pending
Calcium Pending
Vital Signs:
Vital Signs
Temp Pulse Resp BP Pulse Ox
97.2 F 60 16 148/61 94
04/28/23 07:30 04/28/23 08:58 04/28/23 07:45 04/28/23 08:58 04/28/23 07:30
I&O
04/27/23 04/28/23 04/29/23
06:59 06:59 06:59
Intake Total 1200 / 1200 480 / 480
Output Total 1070 / 1070 1375 / 1375
Balance 130 / 130 -895 / -895
Review of Systems
-
History Source: Patient
All other systems: Reviewed and negative
Physical Exam
-
General: No Apparent Distress
HEENT: PERRLA
Respiratory: Non Labored Respirations; Negative Wheezes
Cardiac: Regular Rhythm and S1/S2
GI: Soft and Nontender
Musculoskeletal: No Edema
Skin: Warm and Dry; Negative Rash
Neuro: Awake and Alert
Psych: Calm
Data Reviewed
-
Diagnostic Radiology: Report Reviewed by me
Labs: Labs Reviewed by me
[2023-04-28 09:51] LABS: Blood Urea Nitrogen 24 mg/dl (9-20); Calcium 8.6 mg/dl (8.4-10.2); Carbon Dioxide 23 mmol/L (22-30); Chloride 104 mmol/L (98-107); Estimated Creatinine Clearance 82 ml/min; Glucose 113 mg/dl (70-99); Sodium 136 mmol/L (135-145); eGFR > 60.00
[2023-04-28 11:25] LABS: Magnesium 1.9 mg/dl (1.6-2.3)
[2023-04-28] MEDS: KCL 40 MEQ PO (11:54)
[2023-04-28] MEDS: NSS 30 IV (11:55)
[2023-04-28] MEDS: VEKLURY 250 MG IV (11:55)
[2023-04-28] MEDS: KCL 20 MEQ PO (17:07)
[2023-04-28] MEDS: LIPITOR 20 MG PO (17:07)
--- NOTE | 2023-04-28 17:25 | W.PN.PUL3 ---
Today's Communication / Plan
-
Continue antiviral therapy
Continue steroids
Replete potassium
Incentive spirometry, prone positioning if able
DVT prophylaxis
Assessment
-
88-year-old male with underlying dementia, chronic heart failure, CAD, hypertension, hyperlipidemia previously vaccinated and presented with hypoxemia and covid positive-pulmonary consulted for ongoing hypoxemia 04/27/2023.
Hypoxemic respiratory failure
Covid positive-04/25/2023-previously vaccinated
Heart failure -based on diastolic dysfunction
Mild xxaatb-ilrsspslkm-dbgvhhhyxc 12.7
Hypokalemia
Hyperglycemia
Conditions present prior to admission:
Dementia-resides at [place].
Heart failure reduced EF.
Biventricular ICD.
CAD.
Hypertension.
Hyperlipidemia.
Left subclavian chronic venous thrombosis.
BPH.
Bilateral knee replacement. Hiatal hernia.
DNR
Plan/recommendations
At this time, patient appears to be subjectively improved
Doing very well with incentive spirometry at the bedside
Chest exam is clear for me
Moving forward
Continue with supportive care
Continue with oxygen therapy, wean as able
Prone positioning if able
Decadron
Remdesivir initiated by primary service
Mucolytic's
Negative fluid balance noted
Replace potassium.
DVT prophylaxis-on Lovenox 40 mg daily-no change
GI prophylaxis-on pantoprazole.
Nutrition
Early mobilization/physical therapy.
Diagnostic data:
Chest x-ray 04/25/2023-lungs appear hyperinflated, mild parenchymal opacification within lower lungs suggesting atelectasis
Chest x-ray 04/27/2023-hazy opacifications at the lung bases, no significant change
Echocardiogram 01/29/2023-EF 55-60%, stage I diastolic dysfunction, no valvular disease
Subjective Data
-
Date of Service:
Date of Service: April 28, 2023
Subjective:
Patient subjectively is feeling better. Denies chest pain, hemoptysis, nausea, abdominal pain. Presently on 6 L
Objective Data
Data Reviewed
Vital Signs / I&O / Oxygen:
Vital Signs
Temp Pulse Resp BP Pulse Ox
97.5 F 60 16 151/65 92
04/28/23 16:17 04/28/23 16:17 04/28/23 16:17 04/28/23 16:17 04/28/23 16:17
Intake and Output
04/27/23 04/28/23 04/29/23
06:59 06:59 06:59
Intake Total 1200 / 1200 480 / 480
Output Total 1070 / 1070 1375 / 1375
Balance 130 / 130 -895 / -895
SaO2 92
Nasal Cannula flow liters per 2
minute
Physical Exam
General: Comfortable
HEENT: Normocephalic and Anicteric
Cardiovascular: S1-S2, Regular Rhythm, Murmur (n), Rub (n), Peripheral Edema (n) and Calf Tenderness (n)
Respiratory: Wheeze (n), Crackles (n), Rhonchi (n) and Non-Labored Respirations
GI: Soft, Non Distended and Non Tender
Neurology: Awake, Alert and No Motor Deficits
Skin: Cyanosis (n) and Jaundice (n)
Labs/Micro/Reports
Lab Data
04/27/23 08:53
04/28/23 09:14
Microbiology
04/26/23 01:25 Nose MRSA Screen - Final
No Methicillin Resistant Staphylococcus aureus isolated.
04/25/23 14:13 Nasal Swab Influenza Types A & B (FLO) - Final
Negative for Influenza A & B, NAAT
Negative results must be combined with clinical observations
and patient history.
Nucleic Acid Amplification test (NAAT)performed on the
[employer] platform.
[2023-04-28] MEDS: LOVENOX 40 MG SC (20:18)
[2023-04-28] MEDS: FLOMAX 0.800000000000000044 MG PO (21:00)
[2023-04-29 04:15] VITALS: BP 146/67
[2023-04-29 04:28] VITALS: BMI 32.5
[2023-04-29 06:37] LABS: Blood Urea Nitrogen 25 mg/dl (9-20); Carbon Dioxide 29 mmol/L (22-30); Chloride 98 mmol/L (98-107); Estimated Creatinine Clearance 95 ml/min; Glucose 121 mg/dl (70-99); Potassium 4.3 mmol/L (3.5-5.1); Sodium 134 mmol/L (135-145); eGFR > 60.00
[2023-04-29 07:46] VITALS: BP 154/64
[2023-04-29] MEDS: ProAIR HFA INHALER 2 PUFF INH ×4 (07:46→20:03)
[2023-04-29] MEDS: LASIX 40 MG PO (09:41)
[2023-04-29] MEDS: MUCINEX 600 MG PO ×2 (09:41→21:49)
[2023-04-29] MEDS: LOW STRENGTH ASPIRIN 81 MG PO (09:41)
[2023-04-29] MEDS: DESENEX/MITRAZOL/ZEASORB 1 APPLIC TOPICAL ×2 (09:41→21:47)
[2023-04-29] MEDS: PROTONIX 40 MG PO ×2 (09:42→21:49)
[2023-04-29] MEDS: DECADRON 6 MG IV (09:42)
[2023-04-29] MEDS: VITAMIN D3 (cholecalciferol) 50 MCG PO (09:42)
[2023-04-29] MEDS: PROCARDIA XL (EXTENDED RELEASE) 60 MG PO (09:42)
[2023-04-29] MEDS: ARICEPT 5 MG PO (09:42)
[2023-04-29] MEDS: TOPROL XL 50 MG PO (09:42)
--- NOTE | 2023-04-29 12:46 | W.PN.HOSP.TC ---
Today's Communication/Plan
-
wean O2 as able
decadron/remdesivir
DVT PPx
appreciate pulm consult
Assessment / Plan
Assessment / Plan
Mr. Parviz Howell is a 88 yo man with hx dementia (personal care resident at [place]), HFrEF s/p ICD, LBBB, CAD, HTN, HLD, left subclavian chronic venous thrombosis, BPH presents to the ER with weakness and confusion.� Patient had several episodes
of vomiting and diarrhea.
Triage VS: T 97.8, P 73, RR 10, BP 154/78, SpO2 93%
LABS: WBC 6.8, Hg 14.2, PLT 142, Na 136, K+ 3.8, Cl 102, BUN 21, Cr 0.8, liver enzymes WNL, covid +, flu negative.
MAR: 1L IVF
Acute hypoxic respiratory failure
Covid-19
Weakness
Vomiting/Diarrhea
-admitted to tele
-decadron/remdesivir day 5
-increased O2 needs overnight HD2 from 2 to 6L; patient now needing between 4-6L
-continue DVT PPx
-Pulm consult appreicated
Heart Failure preserved EF, hx cardiomyopathy with recovered EF
Acute on chronic HFpEF exacerbation (s/p fluids first hospital night)
-resume ADDICTIONS RECOVERY SPECIALIST lasix 40mg PO QD - patient with good response
Essential HTN
-ADDICTIONS RECOVERY SPECIALIST Metoprolol
-ADDICTIONS RECOVERY SPECIALIST Nifedipine
GERD
-ADDICTIONS RECOVERY SPECIALIST PPI
HLD
-ADDICTIONS RECOVERY SPECIALIST statin
CAD
-ADDICTIONS RECOVERY SPECIALIST asa/statin
BPH
-ADDICTIONS RECOVERY SPECIALIST Flomax
DVT PPx lovenox subQ
DNR - discussed with on admission
Anticipated Discharge: 24 - 48 hours
Subjective/Interval History
-
Date of Service: April 29, 2023
no new complaints
Objective Data
-
Labs:
Laboratory Results
04/29/23
05:51
Sodium 134 L
Potassium 4.3 D
Chloride 98
Carbon Dioxide 29
BUN 25 H
Creatinine 0.6 L
Glucose 121 H
Calcium 9.0
Vital Signs:
Vital Signs
Temp Pulse Resp BP Pulse Ox
98.2 F 68 18 154/64 95
04/29/23 07:46 04/29/23 11:23 04/29/23 11:23 04/29/23 07:46 04/29/23 12:09
I&O
04/28/23 04/29/23 04/30/23
06:59 06:59 06:59
Intake Total 480 / 480 1440 / 1440 240 / 240
Output Total 1375 / 1375 900 / 900
Balance -895 / -895 540 / 540 240 / 240
Review of Systems
-
History Source: Patient
All other systems: Reviewed and negative
Physical Exam
-
General: No Apparent Distress
HEENT: PERRLA
Respiratory: Non Labored Respirations; Negative Wheezes
Cardiac: Regular Rhythm and S1/S2
GI: Soft and Nontender
Musculoskeletal: No Edema
Skin: Warm and Dry; Negative Rash
Neuro: Awake and Alert
Psych: Calm
Data Reviewed
-
Diagnostic Radiology: Report Reviewed by me
Labs: Labs Reviewed by me
[2023-04-29] MEDS: VEKLURY 250 MG IV (13:45)
[2023-04-29 13:48] VITALS: BP 132/67
[2023-04-29] MEDS: NSS 30 IV (15:30)
--- NOTE | 2023-04-29 15:40 | W.PN.PUL3 ---
Today's Communication / Plan
-
Wean oxygen as able
Continue incentive spirometry, airway clearance
Continue Decadron
Not sure patient will comply with prone positioning recommendations
Assessment
-
88-year-old male with underlying dementia, chronic heart failure, CAD, hypertension, hyperlipidemia previously vaccinated and presented with hypoxemia and covid positive-pulmonary consulted for ongoing hypoxemia 04/27/2023.
Hypoxemic respiratory failure
Covid positive-04/25/2023-previously vaccinated
Heart failure -based on diastolic dysfunction
Mild owtjad-mhjcwgdqcq-cylspuotsb 12.7
Hypokalemia
Hyperglycemia
Conditions present prior to admission:
Dementia-resides at [place].
Heart failure reduced EF.
Biventricular ICD.
CAD.
Hypertension.
Hyperlipidemia.
Left subclavian chronic venous thrombosis.
BPH.
Bilateral knee replacement. Hiatal hernia.
DNR
Plan/recommendations
At this time, patient appears to be comfortable
No incentive spirometry at bedside although was doing yesterday
Chest exam is clear for me
93% on 6 L
Moving forward
Continue with supportive care
Continue with oxygen therapy, wean as able
Prone positioning if able
Decadron will continue, no changes
Remdesivir initiated by primary service
Mucolytic's
Negative fluid balance noted
Electrolytes normal
Resume incentive spirometry. Reviewed with nursing
DVT prophylaxis-on Lovenox 40 mg daily-no change
GI prophylaxis-on pantoprazole.
Nutrition
Early mobilization/physical therapy.
Diagnostic data:
Chest x-ray 04/25/2023-lungs appear hyperinflated, mild parenchymal opacification within lower lungs suggesting atelectasis
Chest x-ray 04/27/2023-hazy opacifications at the lung bases, no significant change
Echocardiogram 01/29/2023-EF 55-60%, stage I diastolic dysfunction, no valvular disease
Subjective Data
-
Date of Service:
Date of Service: April 29, 2023
Subjective:
Patient is feeling better overall. Denies chest pain, cough, nausea, abdominal pain. Remains on 6 L.
Objective Data
Data Reviewed
Vital Signs / I&O / Oxygen:
Vital Signs
Temp Pulse Resp BP Pulse Ox
97.7 F 61 18 132/67 93
04/29/23 13:48 04/29/23 14:53 04/29/23 14:53 04/29/23 13:48 04/29/23 14:53
Intake and Output
04/28/23 04/29/23 04/30/23
06:59 06:59 06:59
Intake Total 480 / 480 1440 / 1440 240 / 240
Output Total 1375 / 1375 900 / 900
Balance -895 / -895 540 / 540 240 / 240
SaO2 93
Nasal Cannula flow liters per 5
minute
Physical Exam
General: Comfortable
HEENT: Normocephalic and Anicteric
Cardiovascular: S1-S2, Regular Rhythm, Murmur (n), Rub (n), Peripheral Edema (n) and Calf Tenderness (n)
Respiratory: Wheeze (n), Crackles (n), Rhonchi (n) and Non-Labored Respirations
GI: Soft, Non Distended and Non Tender
Neurology: Awake, Alert and No Motor Deficits
Skin: Cyanosis (n) and Jaundice (n)
Labs/Micro/Reports
Lab Data
04/27/23 08:53
04/29/23 05:51
Microbiology
04/26/23 01:25 Nose MRSA Screen - Final
No Methicillin Resistant Staphylococcus aureus isolated.
[2023-04-29] MEDS: LIPITOR 20 MG PO (17:04)
[2023-04-29 19:46] VITALS: BP 132/85
[2023-04-29] MEDS: LOVENOX 40 MG SC (21:48)
[2023-04-29] MEDS: FLOMAX 0.800000000000000044 MG PO (21:49)
[2023-04-29] MEDS: TYLENOL 650 MG PO (22:13)
[2023-04-29 23:07] VITALS: BP 146/78
[2023-04-30] VITALS (7 sets, daily range): BP systolic 129–166; BP diastolic 59–84; PULSE 59; O2SAT 95; BMI 31.4
[2023-04-30 06:02] LABS: % Basophils 0.1 % (0-2); % Immature Granulocytes 0.8 % (0-0.5); % Lymphocytes 16.3 % (20.5-51.1); % Monocytes 10.8 % (1.7-9.3); Absolute Immature Granulocytes 0.1 10^3/uL (0-0.05); Absolute Lymphocytes 1.6 10^3/uL (1.2-3.4); Absolute Monocytes 1.1 10^3/uL (0.1-0.6); Absolute Neutrophils 7.2 10^3/uL (1.4-6.5); Hematocrit 42.4 % (39.0-52.0); Hemoglobin 14.9 g/dL (13.0-18.0); Mean Corp Hgb Conc. 35.1 g/dL (33.0-37.0); Mean Corpuscular Hgb 31.6 pg (27.0-31.0); Mean Platelet Volume 10.1 fL (7.4-10.4); Nucleated Red Blood Cells % 0 % (-); Platelet Count 224 10^3/uL (130-400); Red Blood Cell Count 4.71 10^6/uL (4.70-6.10); Red Cell Dist. Width 12.6 % (11.5-14.5)
[2023-04-30 06:31] LABS: ALT (SGPT) 38 U/L (0-50); AST (SGOT) 31 U/L (17-59); Alkaline Phosphatase 51 U/L (38-126); Blood Urea Nitrogen 33 mg/dl (9-20); Calcium 9.5 mg/dl (8.4-10.2); Carbon Dioxide 28 mmol/L (22-30); Chloride 95 mmol/L (98-107); Estimated Creatinine Clearance 62 ml/min; Glucose 130 mg/dl (70-99); Potassium 4.1 mmol/L (3.5-5.1); Sodium 135 mmol/L (135-145); Total Bilirubin 1.1 mg/dl (0.2-1.3); Total Protein 7.4 g/dl (6.3-8.2); eGFR > 60.00
--- NOTE | 2023-04-30 08:04 | W.PN.HOSP.TC ---
Today's Communication/Plan
-
Oxygen requirements improving
Appreciate pulmonary recommendations
Assessment / Plan
Assessment / Plan
Physical Exam
General: No Apparent Distress
HEENT: Normocephalic.
Respiratory: CTAB
Cardiac: Regular Rhythm and S1/S2
GI: Soft and Nontender. Positive bowel sounds.
Musculoskeletal: No Edema
Skin: Warm and Dry
Neuro: Awake and Alert
Psych: Calm
Assessment/Plan
Mr. Parviz Howell is a 88 yo man with history of dementia (personal care resident at [place]), HFrEF s/p ICD, LBBB, CAD, HTN, HLD, left subclavian chronic venous thrombosis, BPH presents to the ER with weakness and confusion.� Patient had several
episodes of vomiting and diarrhea.
Triage VS: T 97.8, P 73, RR 10, BP 154/78, SpO2 93%
LABS: WBC 6.8, Hg 14.2, PLT 142, Na 136, K+ 3.8, Cl 102, BUN 21, Cr 0.8, liver enzymes WNL, covid +, flu negative.
MAR: 1L IVF
Acute hypoxic respiratory failure
Covid-19
Weakness
Vomiting/Diarrhea
-Down to 2 L oxygen today
-admitted to tele
-Continue Decadron
-Status post Remdesivir
-previously in this hospitalization, patient had increased O2 needs overnight HD2 from 2 to 6L; patient now needing between 4-6L
-Prone positioning if possible
-continue DVT PPx
-Pulmonary consult appreciated
Heart Failure preserved EF, hx cardiomyopathy with recovered EF
Acute on chronic HFpEF exacerbation (s/p fluids first hospital night)
-Continue EDGER FEEDER Lasix 40mg PO QD - patient with good response
Essential HTN
-EDGER FEEDER Metoprolol
-EDGER FEEDER Nifedipine
GERD
-EDGER FEEDER PPI
HLD
-EDGER FEEDER statin
CAD
-EDGER FEEDER asa/statin
BPH
-EDGER FEEDER Flomax
DVT PPx: lovenox subQ
DNR - discussed with on admission
Anticipated Discharge: 24 - 48 hours
Subjective/Interval History
-
Date of Service: April 30, 2023
Patient was seen and examined. No new symptoms or complaints.
Objective Data
-
Labs:
Laboratory Results
04/30/23
05:21
WBC 10.0
Hgb 14.9
Hct 42.4
Plt Count 224 D
Sodium 135
Potassium 4.1
Chloride 95 L
Carbon Dioxide 28
BUN 33 H
Creatinine 0.9
Glucose 130 H
Calcium 9.5
Total Bilirubin 1.1
AST 31
ALT 38
Alkaline Phosphatase 51
Vital Signs:
Vital Signs
Temp Pulse Resp BP Pulse Ox
98.0 F 54 18 149/80 94
04/30/23 03:10 04/30/23 03:10 04/30/23 03:10 04/30/23 03:10 04/30/23 03:10
I&O
04/29/23 04/30/23 05/01/23
06:59 06:59 06:59
Intake Total 1440 / 1440 1200 / 1200
Output Total 900 / 900 150 / 150
Balance 540 / 540 1050 / 1050
[2023-04-30] MEDS: ProAIR HFA INHALER 2 PUFF INH (08:06)
[2023-04-30] MEDS: MUCINEX 600 MG PO ×2 (09:14→20:52)
[2023-04-30] MEDS: ARICEPT 5 MG PO (09:14)
[2023-04-30] MEDS: LOW STRENGTH ASPIRIN 81 MG PO (09:14)
[2023-04-30] MEDS: PROCARDIA XL (EXTENDED RELEASE) 60 MG PO (09:14)
[2023-04-30] MEDS: LASIX 40 MG PO (09:15)
[2023-04-30] MEDS: DECADRON 6 MG IV (09:15)
[2023-04-30] MEDS: PROTONIX 40 MG PO ×2 (09:15→20:52)
[2023-04-30] MEDS: TOPROL XL 50 MG PO (09:15)
[2023-04-30] MEDS: VITAMIN D3 (cholecalciferol) 50 MCG PO (09:15)
[2023-04-30] MEDS: DESENEX/MITRAZOL/ZEASORB 1 APPLIC TOPICAL ×2 (09:16→20:51)
--- NOTE | 2023-04-30 12:04 | W.PN.PUL3 ---
Today's Communication / Plan
-
Continue oxygen supplementation, wean as able.
Continue dexamethasone, will change to PO.
Incentive spirometer
Completed Remdesivir.
Home oxygen assessment in A>
Continue Isolation.
Assessment
-
88-year-old male with underlying dementia, chronic heart failure, CAD, hypertension, hyperlipidemia previously vaccinated and presented with hypoxemia and covid positive-pulmonary consulted for ongoing hypoxemia 04/27/2023.
Hypoxemic respiratory failure
Covid positive-04/25/2023-previously vaccinated
Heart failure -based on diastolic dysfunction
Mild ngzfjm-lozmrzvyod-fthemlkwrf 12.7
Hypokalemia
Hyperglycemia
Conditions present prior to admission:
Dementia-resides at [place].
Heart failure reduced EF.
Biventricular ICD.
CAD.
Hypertension.
Hyperlipidemia.
Left subclavian chronic venous thrombosis.
BPH.
Bilateral knee replacement. Hiatal hernia.
DNR
Plan/recommendations
At this time, patient appears to be comfortable
Remains on supplemental oxygen. Slight improvement down to 3.5L
Home oxygen assessment in AM, tomorrow.
Afebrile.
Continue with supportive care:
Continue with oxygen therapy, wean as able, maintain pulse ox over 90%.
Prone positioning if able
Continue dexamethasone-will transition to PO, total of 10 days or until oxygen weaned off.
Completed remdesivir 5-day course.
Mucolytic's
Incentive spirometry encouraged.
Isolation per protocol
Negative fluid balance noted
Electrolytes and renal function normal
DVT prophylaxis-on Lovenox 40 mg daily-no change
GI prophylaxis-on pantoprazole.
-
Not ready for discharge, continues to require significant oxygen supplementation, continue to wean, Hopefully in next 24-48hr
Diagnostic data:
Chest x-ray 04/25/2023-lungs appear hyperinflated, mild parenchymal opacification within lower lungs suggesting atelectasis
Chest x-ray 04/27/2023-hazy opacifications at the lung bases, no significant change
Echocardiogram 01/29/2023-EF 55-60%, stage I diastolic dysfunction, no valvular disease
Subjective Data
-
Date of Service:
Date of Service: April 30, 2023
Chief Complaint: Pulmonary Follow Up (Hypoxemic respiratory failure- SARS Cov2)
Subjective:
Remains on supplemental oxygen of 5 L
He offers no new complaints.
Review of Systems
General: Fever (n)
Cardiopulmonary: Dyspnea (none at rest)
GI: Abdominal Pain (n) and Nausea (n)
Neuro: Headache (n)
Objective Data
Data Reviewed
Vital Signs / I&O / Oxygen:
Vital Signs
Temp Pulse Resp BP Pulse Ox
97.6 F 54 16 142/84 97
04/30/23 07:11 04/30/23 09:15 04/30/23 08:13 04/30/23 09:15 04/30/23 10:29
Intake and Output
04/29/23 04/30/23 05/01/23
06:59 06:59 06:59
Intake Total 1440 / 1440 1200 / 1200
Output Total 900 / 900 150 / 150
Balance 540 / 540 1050 / 1050
SaO2 97
Nasal Cannula flow liters per 4
minute
Physical Exam
General: Comfortable
HEENT: Normocephalic and Anicteric
Cardiovascular: S1-S2, Regular Rhythm, Murmur (n), Rub (n), Peripheral Edema (n) and Calf Tenderness (n)
Respiratory: Wheeze (n), Crackles (n), Rhonchi (n) and Non-Labored Respirations
GI: Soft, Non Distended and Non Tender
Neurology: Awake, Alert and No Motor Deficits
Skin: Cyanosis (n) and Jaundice (n)
Labs/Micro/Reports
Lab Data
04/30/23 05:21
04/30/23 05:21
Microbiology
04/26/23 01:25 Nose MRSA Screen - Final
No Methicillin Resistant Staphylococcus aureus isolated.
--- NOTE | 2023-04-30 15:54 | CM ---
Reviewed the chart notes. IMM signed and placed on chart. Patient down to supplement mental O2 @ 2L/min. PT recommending VN at discharge, VN accepted. CM continues to be available to patient/family and is monitoring medical plan for needs at
discharge.
Plan: Discharge to home with VN. Hopefully will wean from O2 prior, otherwise will need home O2 evaluation.
[2023-04-30] MEDS: LIPITOR 20 MG PO (17:00)
[2023-04-30] MEDS: LOVENOX 40 MG SC (20:52)
[2023-04-30] MEDS: FLOMAX 0.800000000000000044 MG PO (20:52)
[2023-05-01 03:26] VITALS: BP 119/66
[2023-05-01 05:29] VITALS: BMI 31.4
[2023-05-01 06:00] VITALS: BMI 31.4
[2023-05-01 08:29] VITALS: BP 128/74
[2023-05-01 08:40] LABS: % Basophils 0.2 % (0-2); % Eosinophils 0.1 % (0-6); % Immature Granulocytes 1.1 % (0-0.5); % Lymphocytes 17.9 % (20.5-51.1); % Neutrophils 70.7 % (42.2-75.2); Absolute Immature Granulocytes 0.1 10^3/uL (0-0.05); Absolute Lymphocytes 1.8 10^3/uL (1.2-3.4); Absolute Neutrophils 7.2 10^3/uL (1.4-6.5); Hematocrit 42.5 % (39.0-52.0); Hemoglobin 15.3 g/dL (13.0-18.0); Mean Corpuscular Hgb 32.6 pg (27.0-31.0); Mean Corpuscular Volume 90.4 fL (80.0-94.0); Nucleated Red Blood Cells % 0 % (-); Platelet Count 221 10^3/uL (130-400); Red Cell Dist. Width 12.5 % (11.5-14.5); White Blood Cell Count 10.1 10^3/uL (4.8-10.8)
[2023-05-01] MEDS: MUCINEX 600 MG PO ×2 (09:17→20:58)
[2023-05-01] MEDS: DECADRON 6 MG PO (09:17)
[2023-05-01] MEDS: PROTONIX 40 MG PO ×2 (09:17→20:58)
[2023-05-01] MEDS: LOW STRENGTH ASPIRIN 81 MG PO (09:17)
[2023-05-01] MEDS: PROCARDIA XL (EXTENDED RELEASE) 60 MG PO (09:18)
[2023-05-01] MEDS: VITAMIN D3 (cholecalciferol) 50 MCG PO (09:18)
[2023-05-01] MEDS: TOPROL XL 50 MG PO (09:19)
[2023-05-01] MEDS: LASIX 40 MG PO (09:19)
[2023-05-01] MEDS: ARICEPT 5 MG PO (09:20)
[2023-05-01] MEDS: DESENEX/MITRAZOL/ZEASORB 1 APPLIC TOPICAL ×2 (09:22→21:00)
[2023-05-01 09:42] LABS: ALT (SGPT) 33 U/L (0-50); AST (SGOT) 26 U/L (17-59); Alkaline Phosphatase 54 U/L (38-126); Blood Urea Nitrogen 37 mg/dl (9-20); Calcium 9.5 mg/dl (8.4-10.2); Carbon Dioxide 25 mmol/L (22-30); Chloride 95 mmol/L (98-107); Estimated Creatinine Clearance 62 ml/min; Glucose 127 mg/dl (70-99); Potassium 3.7 mmol/L (3.5-5.1); Sodium 133 mmol/L (135-145); Total Bilirubin 0.9 mg/dl (0.2-1.3); Total Protein 7.2 g/dl (6.3-8.2); eGFR > 60.00
[2023-05-01 11:48] VITALS: BP 111/58
--- NOTE | 2023-05-01 12:37 | W.PN.PUL3 ---
Today's Communication / Plan
-
Clinically improved
Complete 10 days of dexamethasone or until oxygen is discontinued.
Continue isolation for total of 10 days per protocol
Wean off oxygen as able
Sign off
Assessment
-
88-year-old male with underlying dementia, chronic heart failure, CAD, hypertension, hyperlipidemia previously vaccinated and presented with hypoxemia and covid positive-pulmonary consulted for ongoing hypoxemia 04/27/2023.
Hypoxemic respiratory failure
Covid positive-04/25/2023-previously vaccinated
Heart failure -based on diastolic dysfunction
Mild kvrwww-hpjoeorqmf-gaejlpbode 12.7
Hypokalemia
Hyperglycemia
Conditions present prior to admission:
Dementia-resides at [place].
Heart failure reduced EF.
Biventricular ICD.
CAD.
Hypertension.
Hyperlipidemia.
Left subclavian chronic venous thrombosis.
BPH.
Bilateral knee replacement. Hiatal hernia.
DNR
Plan/recommendations
Appears comfortable, able to speak in full sentences.
Wean off oxygen as able.
Afebrile.
Continue with supportive care:
Continue with oxygen therapy, wean as able, maintain pulse ox over 90%.
Prone positioning if able
Continue dexamethasone- PO, total of 10 days or until oxygen weaned off.
Completed remdesivir 5-day course.
Incentive spirometry encouraged.
Isolation per protocol
DVT prophylaxis-on Lovenox 40 mg daily-no change
GI prophylaxis-on pantoprazole.
-
No additional recommendation from the pulmonary perspective.
Discharge planning per primary team.
Hopefully oxygen can be weaned off.
At this point, I will sign off.

Diagnostic data:
Chest x-ray 04/25/2023-lungs appear hyperinflated, mild parenchymal opacification within lower lungs suggesting atelectasis
Chest x-ray 04/27/2023-hazy opacifications at the lung bases, no significant change
Echocardiogram 01/29/2023-EF 55-60%, stage I diastolic dysfunction, no valvular disease
Subjective Data
-
Date of Service:
Date of Service: May 01, 2023
Chief Complaint: Pulmonary Follow Up (Hypoxemic respiratory failure- SARS Cov2)
Subjective:
No new complaints per
Patient states that from the breathing perspective he feels okay.
Review of Systems
General: Fever (n)
Cardiopulmonary: Dyspnea (n), Cough (n) and Chest Pain (n)
GI: Abdominal Pain (n)
Objective Data
Data Reviewed
Vital Signs / I&O / Oxygen:
Vital Signs
Temp Pulse Resp BP Pulse Ox
97.6 F 70 18 111/58 91
05/01/23 11:48 05/01/23 11:48 05/01/23 11:48 05/01/23 11:48 05/01/23 11:48
Intake and Output
04/30/23 05/01/23 05/02/23
06:59 06:59 06:59
Intake Total 1200 / 1200 1440 / 1440
Output Total 150 / 150 1150 / 1150
Balance 1050 / 1050 290 / 290
SaO2 91
Nasal Cannula flow liters per 2
minute
Physical Exam
General: Comfortable
HEENT: Normocephalic and Anicteric
Cardiovascular: S1-S2, Regular Rhythm, Murmur (n), Rub (n), Peripheral Edema (n) and Calf Tenderness (n)
Respiratory: Wheeze (n), Crackles (n), Rhonchi (n) and Non-Labored Respirations
GI: Soft, Non Distended and Non Tender
Neurology: Awake, Alert and No Motor Deficits
Skin: Cyanosis (n) and Jaundice (n)
Labs/Micro/Reports
Lab Data
05/01/23 08:04
05/01/23 08:04
[2023-05-01 15:42] VITALS: BP 141/74
--- NOTE | 2023-05-01 16:29 | PN.CDI ---
CDI
- -
CDI:
Physician Documentation Request
Admit Date: 04/25/23 16:19
Dear Doctor Ady,
Patient received 40 meq PO Kcl 04/26-04/28 and with additional 20 meq on 04/28.
Potassium resulted as follows:
Laboratory Tests
04/26/23 04/27/23 04/28/23
05:37 08:53 09:14
Potassium 3.4 L 3.4 L 3.0 L
04/29/23 04/30/23
05:51 05:21
Potassium 4.3 D 4.1
Based on the above, could you provide a diagnosis that supports the above lab abnormalities and additional evaluation, monitoring and/or treatment rendered:
Hypokalemia
Abnormal lab values clinically insignificant
Other
Use of terms such as suspected, likely, concern for, or probable (associated with a specific diagnosis that is being evaluated, monitored, or treated as if it exists) are acceptable and can be coded in the inpatient setting, when documented at the
time of discharge.
Thank you,
Viji Cazares RN, BSN
CDI Specialist
tiger text
Please use your independent medical judgment in providing your response.
[2023-05-01] MEDS: LIPITOR 20 MG PO (17:17)
[2023-05-01 19:29] VITALS: BP 127/76
--- NOTE | 2023-05-01 19:51 | W.PN.HOSP.TC ---
Today's Communication/Plan
-
Please see below
Assessment / Plan
Assessment / Plan
Physical Exam
General: No Apparent Distress
HEENT: Normocephalic.
Respiratory: CTAB
Cardiac: Regular Rhythm and S1/S2
GI: Soft and Nontender. Positive bowel sounds.
Musculoskeletal: No Edema
Skin: Warm and Dry
Neuro: Awake and Alert
Psych: Calm
Assessment/Plan
Mr. Parviz Howell is a 88 yo man with history of dementia (personal care resident at [place]), HFrEF s/p ICD, LBBB, CAD, HTN, HLD, left subclavian chronic venous thrombosis, BPH presents to the ER with weakness and confusion.� Patient had several
episodes of vomiting and diarrhea.
Triage VS: T 97.8, P 73, RR 10, BP 154/78, SpO2 93%
LABS: WBC 6.8, Hg 14.2, PLT 142, Na 136, K+ 3.8, Cl 102, BUN 21, Cr 0.8, liver enzymes WNL, covid +, flu negative.
MAR: 1L IVF
Acute hypoxic respiratory failure
Covid-19
Weakness
Vomiting/Diarrhea
-Down to room air today
-Continue Decadron - complete 10 days or until oxygen stopped
-Status post Remdesivir
-previously in this hospitalization, patient had increased O2 needs overnight HD2 from 2-6 L; then needed between 4-6 L
-Prone positioning if possible
-continue DVT PPx
-Pulmonary consult appreciated
Heart Failure preserved EF, hx cardiomyopathy with recovered EF
Acute on chronic HFpEF exacerbation (s/p fluids first hospital night)
-Continue REFRIGERATOR ASSEMBLER Lasix 40mg PO QD - patient with good response
Hypokalemia
-Resolved
Essential HTN
-REFRIGERATOR ASSEMBLER Metoprolol
-REFRIGERATOR ASSEMBLER Nifedipine
GERD
-REFRIGERATOR ASSEMBLER PPI
HLD
-REFRIGERATOR ASSEMBLER statin
CAD
-REFRIGERATOR ASSEMBLER asa/statin
BPH
-REFRIGERATOR ASSEMBLER Flomax
DVT PPx: lovenox subQ
DNR - discussed with on admission
Anticipated Discharge: 24 - 48 hours
Subjective/Interval History
-
Date of Service: May 01, 2023
Objective Data
-
Labs:
Laboratory Results
05/01/23
08:04
WBC 10.1
Hgb 15.3
Hct 42.5
Plt Count 221
Sodium 133 L
Potassium 3.7
Chloride 95 L
Carbon Dioxide 25
BUN 37 H
Creatinine 0.9
Glucose 127 H
Calcium 9.5
Total Bilirubin 0.9
AST 26
ALT 33
Alkaline Phosphatase 54
Vital Signs:
Vital Signs
Temp Pulse Resp BP Pulse Ox
97.7 F 61 20 127/76 95
05/01/23 19:29 05/01/23 19:29 05/01/23 19:29 05/01/23 19:29 05/01/23 19:29
I&O
04/30/23 05/01/23 05/02/23
06:59 06:59 06:59
Intake Total 1200 / 1200 1440 / 1440 300 / 300
Output Total 150 / 150 1150 / 1150 400 / 400
Balance 1050 / 1050 290 / 290 -100 / -100
[2023-05-01] MEDS: LOVENOX 40 MG SC (20:58)
[2023-05-01] MEDS: FLOMAX 0.800000000000000044 MG PO (21:00)
[2023-05-01 23:35] VITALS: BP 138/71
[2023-05-02] VITALS (8 sets, daily range): BP systolic 123–150; BP diastolic 68–87; BMI 31.5
[2023-05-02 05:09] LABS: % Basophils 0.1 % (0-2); % Eosinophils 0.1 % (0-6); % Monocytes 8.4 % (1.7-9.3); % Neutrophils 77.4 % (42.2-75.2); Absolute Immature Granulocytes 0.2 10^3/uL (0-0.05); Absolute Lymphocytes 1.3 10^3/uL (1.2-3.4); Absolute Monocytes 0.9 10^3/uL (0.1-0.6); Absolute Neutrophils 8.4 10^3/uL (1.4-6.5); Hematocrit 41.9 % (39.0-52.0); Hemoglobin 15.3 g/dL (13.0-18.0); Mean Corp Hgb Conc. 36.5 g/dL (33.0-37.0); Mean Corpuscular Hgb 32.3 pg (27.0-31.0); Mean Corpuscular Volume 88.6 fL (80.0-94.0); Mean Platelet Volume 10.3 fL (7.4-10.4); Nucleated Red Blood Cells % 0 % (-); Platelet Count 244 10^3/uL (130-400); Red Blood Cell Count 4.73 10^6/uL (4.70-6.10); Red Cell Dist. Width 12.3 % (11.5-14.5); White Blood Cell Count 10.8 10^3/uL (4.8-10.8)
[2023-05-02 05:32] LABS: ALT (SGPT) 38 U/L (0-50); AST (SGOT) 32 U/L (17-59); Albumin 4.1 g/dl (3.5-5.0); Alkaline Phosphatase 62 U/L (38-126); Blood Urea Nitrogen 33 mg/dl (9-20); Calcium 8.9 mg/dl (8.4-10.2); Carbon Dioxide 27 mmol/L (22-30); Chloride 97 mmol/L (98-107); Estimated Creatinine Clearance 62 ml/min; Glucose 129 mg/dl (70-99); Magnesium 2.2 mg/dl (1.6-2.3); Potassium 3.5 mmol/L (3.5-5.1); Sodium 131 mmol/L (135-145); Total Bilirubin 0.8 mg/dl (0.2-1.3); eGFR > 60.00
[2023-05-02] MEDS: PROCARDIA XL (EXTENDED RELEASE) 60 MG PO (09:25)
[2023-05-02] MEDS: MUCINEX 600 MG PO ×2 (09:25→20:53)
[2023-05-02] MEDS: LOW STRENGTH ASPIRIN 81 MG PO (09:25)
[2023-05-02] MEDS: VITAMIN D3 (cholecalciferol) 50 MCG PO (09:25)
[2023-05-02] MEDS: PROTONIX 40 MG PO ×2 (09:25→20:53)
[2023-05-02] MEDS: TOPROL XL 50 MG PO (09:26)
[2023-05-02] MEDS: DECADRON 6 MG PO (09:26)
[2023-05-02] MEDS: LASIX 40 MG PO (09:26)
[2023-05-02] MEDS: ARICEPT 5 MG PO (09:27)
[2023-05-02] MEDS: DESENEX/MITRAZOL/ZEASORB 1 APPLIC TOPICAL ×2 (09:36→20:52)
--- NOTE | 2023-05-02 11:10 | CM ---
Reviewed the chart notes an spoke with the patient's spouse via telephone. IMM discussed and placed on chart. The patient is on room air at this point. CM continues to be available to patient/family and is monitoring medical plan for needs at
discharge.
Plan: Discharge back to [facility] with [facility] services.
--- NOTE | 2023-05-02 16:33 | W.PN.HOSP.TC ---
Today's Communication/Plan
-
Please see below
Assessment / Plan
Assessment / Plan
Physical Exam
General: No Apparent Distress
HEENT: Normocephalic.
Respiratory: CTAB
Cardiac: Regular Rhythm and S1/S2
GI: Soft and Nontender. Positive bowel sounds.
Musculoskeletal: No Edema
Skin: Warm and Dry
Neuro: Awake and Alert
Psych: Calm
Assessment/Plan
Mr. Parviz Howell is a 88 yo man with history of dementia (personal care resident at [place]), HFrEF s/p ICD, LBBB, CAD, HTN, HLD, left subclavian chronic venous thrombosis, BPH presents to the ER with weakness and confusion.� Patient had several
episodes of vomiting and diarrhea.
Triage VS: T 97.8, P 73, RR 10, BP 154/78, SpO2 93%
LABS: WBC 6.8, Hg 14.2, PLT 142, Na 136, K+ 3.8, Cl 102, BUN 21, Cr 0.8, liver enzymes WNL, covid +, flu negative.
MAR: 1L IVF
Acute hypoxic respiratory failure
Covid-19
Weakness
Vomiting/Diarrhea
-Remains on room air
-Stop Decadron as patient remains on room air
-Status post Remdesivir
-previously in this hospitalization, patient had increased O2 needs overnight HD2 from 2-6 L; then needed between 4-6 L
-Prone positioning if possible
-continue DVT PPx
-Pulmonary consult appreciated
Heart Failure preserved EF, hx cardiomyopathy with recovered EF
Acute on chronic HFpEF exacerbation (s/p fluids first hospital night)
-Continue BUSINESS INTELLIGENCE MANAGER Lasix 40mg PO QD - patient with good response
Hypokalemia
-Resolved
Essential HTN
-BUSINESS INTELLIGENCE MANAGER Metoprolol
-BUSINESS INTELLIGENCE MANAGER Nifedipine
GERD
-BUSINESS INTELLIGENCE MANAGER PPI
HLD
-BUSINESS INTELLIGENCE MANAGER statin
CAD
-BUSINESS INTELLIGENCE MANAGER asa/statin
BPH
-BUSINESS INTELLIGENCE MANAGER Flomax
DVT PPx: lovenox subQ
DNR - hospitalist discussed with on admission
Anticipated Discharge: Within 24 hours
Subjective/Interval History
-
Date of Service: May 02, 2023
Patient was seen and examined. He reported no new symptoms or complaints.
Objective Data
-
Labs:
Laboratory Results
05/02/23
03:57
WBC 10.8
Hgb 15.3
Hct 41.9
Plt Count 244
Sodium 131 L
Potassium 3.5
Chloride 97 L
Carbon Dioxide 27
BUN 33 H
Creatinine 0.9
Glucose 129 H
Calcium 8.9
Total Bilirubin 0.8
AST 32
ALT 38
Alkaline Phosphatase 62
Vital Signs:
Vital Signs
Temp Pulse Resp BP Pulse Ox
97.8 F 62 16 123/68 93
05/02/23 15:37 05/02/23 15:37 05/02/23 15:37 05/02/23 15:37 05/02/23 15:37
I&O
05/01/23 05/02/23 05/03/23
06:59 06:59 06:59
Intake Total 1440 / 1440 820 / 820
Output Total 1150 / 1150 1325 / 1325
Balance 290 / 290 -505 / -505
[2023-05-02] MEDS: LIPITOR 20 MG PO (18:23)
[2023-05-02] MEDS: LOVENOX 40 MG SC (20:53)
[2023-05-02] MEDS: FLOMAX 0.800000000000000044 MG PO (21:33)
[2023-05-03 03:19] VITALS: BP 133/69
[2023-05-03 05:52] VITALS: BMI 31.6
[2023-05-03 06:00] VITALS: BMI 31.6
[2023-05-03 06:12] LABS: % Basophils 0.1 % (0-2); % Immature Granulocytes 2.4 % (0-0.5); % Lymphocytes 10.1 % (20.5-51.1); % Monocytes 8.1 % (1.7-9.3); % Neutrophils 79.3 % (42.2-75.2); Absolute Immature Granulocytes 0.3 10^3/uL (0-0.05); Absolute Lymphocytes 1.2 10^3/uL (1.2-3.4); Absolute Monocytes 0.9 10^3/uL (0.1-0.6); Absolute Neutrophils 9.2 10^3/uL (1.4-6.5); Hematocrit 41.3 % (39.0-52.0); Hemoglobin 14.7 g/dL (13.0-18.0); Mean Corp Hgb Conc. 35.6 g/dL (33.0-37.0); Mean Corpuscular Hgb 31.8 pg (27.0-31.0); Mean Corpuscular Volume 89.4 fL (80.0-94.0); Mean Platelet Volume 10.1 fL (7.4-10.4); Nucleated Red Blood Cells % 0 % (-); Platelet Count 250 10^3/uL (130-400); Red Blood Cell Count 4.62 10^6/uL (4.70-6.10); Red Cell Dist. Width 12.5 % (11.5-14.5); White Blood Cell Count 11.6 10^3/uL (4.8-10.8)
[2023-05-03 06:42] LABS: ALT (SGPT) 40 U/L (0-50); AST (SGOT) 32 U/L (17-59); Albumin 3.8 g/dl (3.5-5.0); Alkaline Phosphatase 52 U/L (38-126); Blood Urea Nitrogen 33 mg/dl (9-20); Carbon Dioxide 26 mmol/L (22-30); Chloride 96 mmol/L (98-107); Estimated Creatinine Clearance 62 ml/min; Glucose 144 mg/dl (70-99); Magnesium 2.3 mg/dl (1.6-2.3); Potassium 3.7 mmol/L (3.5-5.1); Sodium 132 mmol/L (135-145); Total Bilirubin 0.9 mg/dl (0.2-1.3); Total Protein 6.9 g/dl (6.3-8.2); eGFR > 60.00
[2023-05-03 07:25] VITALS: BP 143/74
[2023-05-03] MEDS: PROCARDIA XL (EXTENDED RELEASE) 60 MG PO (08:40)
[2023-05-03] MEDS: PROTONIX 40 MG PO ×2 (08:41→21:04)
[2023-05-03] MEDS: MUCINEX 600 MG PO ×2 (08:41→21:04)
[2023-05-03] MEDS: LASIX 40 MG PO (08:41)
[2023-05-03] MEDS: LOW STRENGTH ASPIRIN 81 MG PO (08:41)
[2023-05-03] MEDS: ARICEPT 5 MG PO (08:41)
[2023-05-03] MEDS: VITAMIN D3 (cholecalciferol) 50 MCG PO (08:41)
[2023-05-03] MEDS: DESENEX/MITRAZOL/ZEASORB 1 APPLIC TOPICAL ×2 (08:57→21:04)
[2023-05-03] MEDS: TOPROL XL PO (09:16)
--- NOTE | 2023-05-03 11:36 | CON.CAR ---
Consultation
Consultation Request
Date/Time Consultation Requested: May 03, 2023 1000
Date/Time Consultation Performed: may 03, 2023 1135
Requesting Provider: hospitalist
Performing Provider: amanda gunn
Reason for Consultation: bradycardia
Medical History
-
Chief Complaint: SOB
History of Present Illness:
Mr. Parviz Howell is a 88 yo man with hx dementia (personal care resident at [place]), HFrEF s/p ICD and PPM, LBBB, CAD, HTN, HLD, left subclavian chronic vneous thrombosis, BPH presents to the ER with weakness and confusion.�He is a poor historian
and the majority was obtained through chart review. He was ultimately found to have COVID. He has been improving and has no new complaints today. He tells me he has no symptoms and wants to go home.
Past Medical History
Past Medical History: Other (nonischemic cardiomyopathy status post ICD, left bundle branch block, coronary artery disease, hypertension, hyperlipidemia, left subclavian chronic venous thrombosis, macular degeneration of right eye, degenerative disc
disease, fatty liver, GERD, melanoma, BPH)
Past Surgical History: Other (Cardiac (Biventricular ICD), Orthopedic Hugh knee replacements Hiatal hernia surgery)
Social History
Tobacco: Non-Smoker
Alcohol: None
Drug: None
Family History
Family History: Reviewed & Not Pertinent
Allergies / Home Medications
Allergy/AdvReac Type Severity Reaction Status Date / Time
No Known Allergies Allergy Verified 04/25/23 12:11
Medication Instructions Recorded Confirmed Type
simvastatin 40 mg tablet 40 mg PO QPM High cholesterol 03/07/10 04/25/23 History
omeprazole 40 mg capsule,delayed 40 mg PO BID Gastrointestinal issue 04/07/16 04/25/23 History
release
acetaminophen 500 mg tablet 1,000 mg PO BIDPRN PRN mild pain 05/26/21 04/25/23 History
(Tylenol Extra Strength)
tamsulosin 0.4 mg capsule 0.8 mg PO HS Urinary issue 05/26/21 04/25/23 History
nifedipine 60 mg tablet,extended 60 mg PO DAILY #30 tabs 05/31/21 04/25/23 Rx
release
metoprolol succinate 50 mg 50 mg PO DAILY Blood Pressure 06/16/22 04/25/23 History
tablet,extended release 24 hr
(Toprol XL)
donepezil 5 mg tablet 5 mg PO DAILY Neurological 01/26/23 04/25/23 History
Condition
furosemide 40 mg tablet (Lasix) 40 mg PO DAILY 30 days #30 tabs 01/30/23 04/25/23 Rx
albuterol sulfate 2.5 mg/3 mL 2.5 mg inhalation R Q4HPRN PRN 04/25/23 04/25/23 History
(0.083 %) solution for nebulization shortness of breath
aspirin 81 mg chewable tablet 81 mg PO DAILY 04/25/23 04/25/23 History
dextromethorphan-guaifenesin 10 10 ml PO Q6HPRN PRN cough 04/25/23 04/25/23 History
mg-100 mg/5 mL oral syrup
Review of Systems
-
All other systems: Negative unless noted
Physical Exam
Vital Signs
Temp Pulse Resp BP Pulse Ox
97.5 F 56 18 143/74 94
05/03/23 07:25 05/03/23 09:16 05/03/23 07:25 05/03/23 09:16 05/03/23 07:25
Lab Results
05/03/23 05:34
05/03/23 05:34
Physical Exam
General: Well Developed and No Apparent Distress
HEENT: Normocephalic
Respiratory: Clear and Non Labored Respirations
Cardiac: S1/S2 and Regular Rhythm
GI: Soft
Musculoskeletal: No Clubbing and No Cyanosis
Skin: Warm and Dry
Neuro: AO x 3
Impression / Plan
-
88 yo man with hx dementia (personal care resident at [place]), HFrEF s/p ICD, LBBB, CAD, HTN, HLD, left subclavian chronic vneous thrombosis, BPH presents to the ER with weakness and confusion. He was found to have COVID and we are consulted for
bradycardia. His bradycardia appears asymptomatic and he has no cardiac symptoms. His ICD/PPM appears to be functioning appropriately.
Bradycardia
- cont metoprolol
HF improved EF
- stable
HTN
- cont home meds
HLD
- cont statin
Hyponatremia
COVID
Dementia
no other new recommendations at this time
Data Reviewed
-
EKG: Tracing Personally Visualized and interpreted
Medical Tests (Nuc Med, Echo etc): Report Reviewed by me
Labs: Labs Reviewed by me
--- NOTE | 2023-05-03 12:03 | W.PN.HOSP.TC ---
Addendum entered and electronically signed by Cristi Garsia MD 05/03/23 16:42:
Patient can be discharge to [facility] tonight as per case maker. Discharge order has been placed again.
Addendum entered and electronically signed by Cristi Garsia MD 05/03/23 14:18:
Discharge cancelled as case maker said '....regarding 2130 the facility will not accept back. They want him to go to a SNF. It will be difficult to find a Covid + Bed......'
Original Note:
Today's Communication/Plan
-
Discharge today
Assessment / Plan
Assessment / Plan
Physical Exam
General: No Apparent Distress
HEENT: Normocephalic.
Respiratory: CTAB
Cardiac: Regular Rhythm and S1/S2
GI: Soft and Nontender. Positive bowel sounds.
Musculoskeletal: No Edema
Skin: Warm and Dry
Neuro: Awake and Alert
Psych: Calm
Assessment/Plan
Mr. Parviz Howell is a 88 yo man with history of dementia (personal care resident at [place]), HFrEF status post ICD, LBBB, CAD, HTN, HLD, left subclavian chronic venous thrombosis, benign prostatic hyperplasia presented to the emergency room with
weakness and confusion.� Patient had several episodes of vomiting and diarrhea.
Triage VS: T 97.8, P 73, RR 10, BP 154/78, SpO2 93%
LABS: WBC 6.8, Hg 14.2, PLT 142, Na 136, K+ 3.8, Cl 102, BUN 21, Cr 0.8, liver enzymes WNL, covid +, flu negative.
MAR: 1L IVF
Acute hypoxic respiratory failure
Covid-19 positive-04/25/2023-previously vaccinated
Weakness
Vomiting/Diarrhea
-Remains on room air
-Stop Decadron as patient remains on room air
-Status post Remdesivir
-previously in this hospitalization, patient had increased O2 needs overnight HD2 from 2-6 L; then needed between 4-6 L; now on room air
-continue DVT PPx
-Pulmonary consult appreciated
-COVID isolation through May 05, 2023
Heart Failure preserved EF, hx cardiomyopathy with recovered EF
Acute on chronic HFpEF exacerbation (s/p fluids first hospital night)
Biventricular Implantable cardioverter-defibrillator
Coronary Artery Disease
-Continue ROVING COURT REPORTER Lasix 40mg PO QD - patient with good response
Asymptomatic Bradycardia
-Consulted cardiology, recommendations appreciated
-Per cardiology, patient's ICD/PPM appears to be functioning appropriately
-Okay to continue Toprol XL 50 daily, as per cardiology
Hyponatremia
-FR 1.5 to 2 liters per day
Hypokalemia
-Resolved
Mild xrwmae-doolrjxahv-hrujzghunj 12.7
-Monitor CBC outpatient
Hyperglycemia
Dementia-resides at [place].
Left subclavian chronic venous thrombosis.
Bilateral knee replacement.
Hiatal hernia.
History of Melanoma?
Essential HTN
-ROVING [employer] REPORTER Metoprolol
-ROVING [employer] REPORTER Nifedipine
GERD
-ROVING [employer] REPORTER PPI
HLD
-ROVING [employer] REPORTER statin
Coronary Artery Disease
-ROVING [employer] REPORTER asa/statin
Benign Prostatic Hyperplasia
-ROVING COURT REPORTER Flomax
DVT PPx: Lovenox subQ
DNR - hospitalist discussed with on admission
More than 30 minutes spent in discharge including
Final examination of the patient
Summarizing hospital stay
Instructions for continuing care to all relevant caregivers
Preparation of discharge records, prescriptions, and referral forms
Total time spent (in minutes): 39
Anticipated Discharge: Today
Subjective/Interval History
-
Date of Service: May 03, 2023
Patient was seen and examined. He reported feeling okay, not too great, was sleeping, some generalized weakness.
Objective Data
-
Labs:
Laboratory Results
05/03/23
05:34
WBC 11.6 H
Hgb 14.7
Hct 41.3
Plt Count 250
Sodium 132 L
Potassium 3.7
Chloride 96 L
Carbon Dioxide 26
BUN 33 H
Creatinine 0.9
Glucose 144 H
Calcium 9.0
Total Bilirubin 0.9
AST 32
ALT 40
Alkaline Phosphatase 52
Vital Signs:
Vital Signs
Temp Pulse Resp BP Pulse Ox
97.5 F 56 18 143/74 94
05/03/23 07:25 05/03/23 09:16 05/03/23 07:25 05/03/23 09:16 05/03/23 08:00
I&O
05/02/23 05/03/23 05/04/23
06:59 06:59 06:59
Intake Total 820 / 820 1560 / 1560
Output Total 1325 / 1325 1125 / 1125
Balance -505 / -505 435 / 435
[2023-05-03 12:19] VITALS: BP 114/69
--- NOTE | 2023-05-03 12:40 | W.DS.TRANS ---
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
-
Discharge Instructions:
Discharge Diagnosis/Procedures Acute hypoxic respiratory failure
Covid-19 positive-04/25/2023-previously
vaccinated
Weakness
Vomiting/Diarrhea
Heart Failure preserved ejection fraction,
history of cardiomyopathy with recovered
ejection fraction
Acute on chronic Heart Failure with Preserved
Ejection Fraction exacerbation
Biventricular Implantable cardioverter-
defibrillator
Coronary Artery Disease
Asymptomatic Bradycardia
Left Bundle Branch Block
Hyponatremia
Hypokalemia
Hyperglycemia
Dementia-resides at [place].
Left subclavian chronic venous thrombosis.
Bilateral knee replacement.
Hiatal hernia.
History of Melanoma?
Essential Hypertension
Gastroesophageal Reflux Disease
Hyperlipidemia
Coronary Artery Disease
Benign Prostatic Hyperplasia
Diet Other diet
Additional Diets Oral fluid restriction 50 ounces daily
Activity As tolerated
Driving Restrictions No driving
Other Services VN
Specialty Instructions Weigh Daily
Instructions:
Stand-Alone Forms:
Changes to Home Medications: Yes
Discharge Medications:
DC Medications w/original date entered in [facility]
simvastatin 40 mg tablet 40 mg PO QPM High cholesterol 03/07/10
omeprazole 40 mg capsule,delayed release 40 mg PO BID Gastrointestinal issue 04/07/16
acetaminophen 500 mg tablet (Tylenol Extra Strength) 1,000 mg PO BIDPRN PRN mild pain 05/26/21
tamsulosin 0.4 mg capsule 0.8 mg PO HS Urinary issue 05/26/21
nifedipine 60 mg tablet,extended release 60 mg PO DAILY #30 tabs 05/31/21
metoprolol succinate 50 mg tablet,extended release 24 hr (Toprol XL) 50 mg PO DAILY Blood Pressure 06/16/22
donepezil 5 mg tablet 5 mg PO DAILY Neurological Condition 01/26/23
furosemide 40 mg tablet (Lasix) 40 mg PO DAILY 30 days #30 tabs 01/30/23
albuterol sulfate 2.5 mg/3 mL (0.083 %) solution for nebulization 2.5 mg inhalation R Q4HPRN PRN shortness of breath 04/25/23
aspirin 81 mg chewable tablet 81 mg PO DAILY 04/25/23
dextromethorphan-guaifenesin 10 mg-100 mg/5 mL oral syrup 10 ml PO Q6HPRN PRN cough 04/25/23
cholecalciferol (vitamin D3) 50 mcg (2,000 unit) tablet 50 mcg PO DAILY #30 tabs 05/03/23
guaifenesin 600 mg tablet, extended release 12 hr 600 mg PO Q12 #60 tabs 05/03/23
miconazole nitrate 2 % topical powder (Miconazorb AF) 1 applic topical BID #85 grams 05/03/23
Home Medication Changes
New medications are Cholecalciferol (vitamin D3), Guaifenesin and Miconazole
Pending Results: No
Total time spent discharging patient (in min): 39
--- NOTE | 2023-05-03 14:23 | CM ---
Addendum entered by Bev Puente RN 05/03/23 16:23:
[facility] can accept the patient later today. Spouse informed.
Call report to: [phone]
Fax report to: [phone]
Medical necessity and transport forms on chart.
Original Note:
Reviewed the chart notes and spoke with Kianna at [facility]. Patient is ready for discharge back to facility. Patient walking 40' in room with supervision per PT notes. Facility will not accept back until he goes to a SNF. CM spoke with the
patient's spouse via telephone. Explained that with the patient being Covid + will be a barrier. Permission received to referrals out to area facilities including [facility]. CM continues to be available to patient/family and is monitoring medical plan
for needs at discharge.
Plan: Discharge to SNF once bed found. No precert required.
[2023-05-03 15:00] VITALS: BP 118/65
[2023-05-03 16:31] VITALS: BP 137/71; PULSE 70; O2SAT 97
[2023-05-03] MEDS: LIPITOR 20 MG PO (17:15)
[2023-05-03 19:29] VITALS: BP 122/72
[2023-05-03] MEDS: FLOMAX 0.800000000000000044 MG PO (21:04)
[2023-05-03] MEDS: LOVENOX 40 MG SC (21:04)
--- NOTE | 2023-05-03 22:18 | PTCARENOTE ---
Patient discharged. Report called to [facility]. IVs and servicing manager removed. All belongs given to transport team. Transport via ambulance.
--- NOTE | 2023-05-06 09:27 | W.DCSUMMARY ---
Discharge Summary
Discharge Data
Date of Admission: 04/25/23
Date of Discharge: 05/03/23
Total time spent discharging patient (in min): 39
-
Pending Results: No
Hospital Course
88 y/o male with past medical history of progressive dementia (personal care resident at [place]), HFrEF s/p ICD, LBBB, CAD, HTN, HLD, left subclavian chronic venous thrombosis, BPH presented to the emergency room with weakness and confusion. Patient
developed upper respiratory infection symptoms recently. He became increasingly disoriented and seems unbalanced. Patient had several episodes of vomiting and diarrhea, and also developed shortness of breath and cough. Patient was found to have
COVID-19 and started on Decadron and Remdesivir, as well as intravenous fluids. Patient had increased oxygen requirements during the hospitalization. Pulmonary was consulted and their impression was that patient's heart failure and fluid overload
are contributing more to the hypoxemia than COVID-19. Patient home Lasix was resumed and he had a good response to the Lasix. Patient's oxygen requirements gradually improved and eventually he had good oxygen saturations on room air. Cardiology was
consulted for patient's bradycardia, which was asymptomatic, so cardiology recommended continuing patient's Metoprolol.
Discharge Plan
-
Patient Disposition: Assisted Living
Discharge Diagnosis/Procedures: Acute hypoxic respiratory failure
Covid-19 positive-04/25/2023-previously vaccinated
Weakness
Vomiting/Diarrhea
Heart Failure preserved ejection fraction, history of cardiomyopathy with recovered ejection fraction
Acute on chronic Heart Failure with Preserved Ejection Fraction exacerbation
Biventricular Implantable cardioverter-defibrillator
Coronary Artery Disease
Asymptomatic Bradycardia
Left Bundle Branch Block
Hyponatremia
Hypokalemia
Hyperglycemia
Dementia-resides at [place].
Left subclavian chronic venous thrombosis.
Bilateral knee replacement.
Hiatal hernia.
History of Melanoma?
Essential Hypertension
Gastroesophageal Reflux Disease
Hyperlipidemia
Coronary Artery Disease
Benign Prostatic Hyperplasia
Condition: Fair
Diet: Other diet
Additional Diets: Oral fluid restriction 50 ounces daily
Activity: As tolerated
Driving Restrictions: No driving
Other Services: VN
Specialty Instructions: Weigh Daily- Call MD for wt gain/loss 3 lbs overnight/5 lbs in 1 week
Referrals:
Piero Mukherjee MD [Active] - in one to two weeks
Richie Fonseca MD [Family Provider] - in less than 1 week
Prescriptions:
New
miconazole nitrate [Miconazorb AF] 2 % Powder
1 applic topical BID Qty: 85 0RF
guaifenesin 600 mg Tablet Extended Release 12hr
600 mg PO Q12 Qty: 60 0RF
cholecalciferol (vitamin D3) 50 mcg (2,000 unit) Tablet
50 mcg PO DAILY Qty: 30 1RF
Continued
simvastatin 40 MG tablet
40 mg PO QPM
omeprazole 40 MG capsule,delayed release(DR/EC)
40 mg PO BID
acetaminophen [Tylenol Extra Strength] 500 MG tablet
1,000 mg PO BIDPRN PRN (Reason: mild pain)
tamsulosin 0.4 MG capsule
0.8 mg PO HS
nifedipine 60 MG tablet extended release
60 mg PO DAILY Qty: 30 0RF
metoprolol succinate [Toprol XL] 50 mg Tablet Extended Release 24 Hr
50 mg PO DAILY
donepezil 5 mg Tablet
5 mg PO DAILY
furosemide [Lasix] 40 mg tablet
40 mg PO DAILY 30 Days Qty: 30 0RF
aspirin 81 mg Tablet,Chewable
81 mg PO DAILY
albuterol sulfate 2.5 mg /3 mL (0.083 %) Solution For Nebulization
2.5 mg INHALATION R Q4HPRN PRN (Reason: shortness of breath)
dextromethorphan-guaifenesin 10-100 mg/5 mL Syrup
10 ml PO Q6HPRN PRN (Reason: cough)
Discharge Orders:
Discharge Patient (As Directed); Ordered 05/03/23
Ordered By: Cristi Garsia
Discharge Date and Time
Discharge Date/Time: 05/03/23 22:13
== END 2023-05-03 22:13 | DRG 177 ==
LOC: 2 NORTH 16:19
PROVIDERS: Nurse Practitioner; ADMITTING PHYSICIAN Student in an Organized Health Care Education/Training Program; ATTENDING PHYSICIAN Hospitalist; CONSULT PHYSICIAN Internal Medicine Cardiovascular Disease; CONSULT PHYSICIAN Internal Medicine Critical Care Medicine; EMERGENCY PHYSICIAN Emergency Medicine; FAMILY PHYSICIAN Internal Medicine
PROC: XW033E5 Introduction of Remdesivir Anti-infective into Peripheral Vein, Percutaneous Approach, New Technology Group 5 (ICD-10-PCS; 2023-04-25)
DX: U07.1 COVID-19 (principal); I50.33 Acute on chronic diastolic (congestive) heart failure; J96.01 Acute respiratory failure with hypoxia; I82.B22 Chronic embolism and thrombosis of left subclavian vein; J98.11 Atelectasis; E87.1 Hypo-osmolality and hyponatremia; I42.8 Other cardiomyopathies; I11.0 Hypertensive heart disease with heart failure; F03.90 Unspecified dementia, unspecified severity, without behavioral disturbance, psychotic disturbance, mood disturbance, and anxiety; E78.00 Pure hypercholesterolemia, unspecified; K21.9 Gastro-esophageal reflux disease without esophagitis; I25.10 Atherosclerotic heart disease of native coronary artery without angina pectoris; I44.7 Left bundle-branch block, unspecified; N40.0 Benign prostatic hyperplasia without lower urinary tract symptoms; K76.0 Fatty (change of) liver, not elsewhere classified; H35.30 Unspecified macular degeneration; R73.9 Hyperglycemia, unspecified; E87.6 Hypokalemia; D64.9 Anemia, unspecified; K44.9 Diaphragmatic hernia without obstruction or gangrene; I25.5 Ischemic cardiomyopathy; Z96.653 Presence of artificial knee joint, bilateral; Z95.810 Presence of automatic (implantable) cardiac defibrillator; Z86.718 Personal history of other venous thrombosis and embolism; Z85.820 Personal history of malignant melanoma of skin; Z79.82 Long term (current) use of aspirin; Z66 Do not resuscitate
CPT/HCPCS: 51701; 71045; 71046; 80048; 80053; 81003; 83690; 83735; 85025; 87070; 87502; 87811; 93005; 94640; 96360; 97116; 97162; 97166; 97530; 99285; J0248

== ENCOUNTER → 2023-06-02 09:54 | Outpatient (REF) | payer MEDICARE, OTHER, SELFPAY ==
[2023-06-02 11:16] LABS: % Basophils 0.9 % (0-2); % Eosinophils 2.6 % (0-6); % Immature Granulocytes 0.8 % (0-0.5); % Lymphocytes 15.5 % (20.5-51.1); % Monocytes 8.8 % (1.7-9.3); % Neutrophils 71.4 % (42.2-75.2); Absolute Basophils 0.1 10^3/uL (0-0.2); Absolute Eosinophils 0.2 10^3/uL (0-0.7); Absolute Immature Granulocytes 0.1 10^3/uL (0-0.05); Absolute Lymphocytes 1.4 10^3/uL (1.2-3.4); Absolute Monocytes 0.8 10^3/uL (0.1-0.6); Absolute Neutrophils 6.6 10^3/uL (1.4-6.5); Hematocrit 40.9 % (39.0-52.0); Hemoglobin 14.1 g/dL (13.0-18.0); Mean Corp Hgb Conc. 34.5 g/dL (33.0-37.0); Mean Corpuscular Hgb 31.9 pg (27.0-31.0); Mean Corpuscular Volume 92.5 fL (80.0-94.0); Mean Platelet Volume 10.4 fL (7.4-10.4); Nucleated Red Blood Cells % 0 % (-); Platelet Count 221 10^3/uL (130-400); Red Blood Cell Count 4.42 10^6/uL (4.70-6.10); White Blood Cell Count 9.2 10^3/uL (4.8-10.8)
[2023-06-02 11:37] LABS: ALT (SGPT) 37 U/L (0-50); AST (SGOT) 38 U/L (17-59); Albumin 4.5 g/dl (3.5-5.0); Alkaline Phosphatase 72 U/L (38-126); Blood Urea Nitrogen 21 mg/dl (9-20); Calcium 9.7 mg/dl (8.4-10.2); Carbon Dioxide 25 mmol/L (22-30); Chloride 104 mmol/L (98-107); Glucose 121 mg/dl (70-99); HDL Cholesterol 63 mg/dl; LDL Cholesterol, Calculated 76 mg/dl; Potassium 3.7 mmol/L (3.5-5.1); Sodium 137 mmol/L (135-145); Total Bilirubin 0.8 mg/dl (0.2-1.3); Total Cholesterol 181 mg/dl (50-199); Total Protein 7.4 g/dl (6.3-8.2); Triglyceride 214 mg/dl (10-149); Very Low Density Lipoprotein 42 mg/dl (0-30); eGFR > 60.00
[2023-06-02 11:49] LABS: NT-proBNP 683 pg/ml
[2023-06-03 12:12] LABS: PSA Total 6.7 ng/mL (0.0-4.0)
== END ==
LOC: REG 09:54
PROVIDERS: ATTENDING PHYSICIAN Internal Medicine
DX: I25.5 Ischemic cardiomyopathy (principal); Z95.810 Presence of automatic (implantable) cardiac defibrillator; I10 Essential (primary) hypertension; F01.A0 Vascular dementia, mild, without behavioral disturbance, psychotic disturbance, mood disturbance, and anxiety; E78.5 Hyperlipidemia, unspecified; R97.20 Elevated prostate specific antigen [PSA]
CPT/HCPCS: 36415; 80053; 80061; 83880; 84153; 84154; 84443; 85025

== ENCOUNTER → 2023-06-13 12:10 | Outpatient (REF) | payer MEDICARE, OTHER, SELFPAY ==
[2023-06-13 13:43] LABS: % Eosinophils 3.4 % (0-6); % Immature Granulocytes 0.4 % (0-0.5); % Lymphocytes 12.8 % (20.5-51.1); % Monocytes 13.2 % (1.7-9.3); % Neutrophils 69.2 % (42.2-75.2); Absolute Basophils 0.1 10^3/uL (0-0.2); Absolute Eosinophils 0.3 10^3/uL (0-0.7); Absolute Lymphocytes 0.9 10^3/uL (1.2-3.4); Absolute Neutrophils 5.1 10^3/uL (1.4-6.5); Hematocrit 39.8 % (39.0-52.0); Hemoglobin 13.3 g/dL (13.0-18.0); Mean Corp Hgb Conc. 33.4 g/dL (33.0-37.0); Mean Corpuscular Hgb 31.5 pg (27.0-31.0); Mean Corpuscular Volume 94.3 fL (80.0-94.0); Mean Platelet Volume 10.5 fL (7.4-10.4); Nucleated Red Blood Cells % 0 % (-); Platelet Count 199 10^3/uL (130-400); Red Blood Cell Count 4.22 10^6/uL (4.70-6.10); Red Cell Dist. Width 13.5 % (11.5-14.5); White Blood Cell Count 7.3 10^3/uL (4.8-10.8)
[2023-06-13 13:57] LABS: NT-proBNP 591 pg/ml
[2023-06-13 14:14] LABS: ALT (SGPT) 21 U/L (0-50); AST (SGOT) 25 U/L (17-59); Albumin 4.4 g/dl (3.5-5.0); Alkaline Phosphatase 70 U/L (38-126); Blood Urea Nitrogen 18 mg/dl (9-20); Calcium 9.4 mg/dl (8.4-10.2); Carbon Dioxide 23 mmol/L (22-30); Chloride 104 mmol/L (98-107); Glucose 98 mg/dl (70-99); Iron 72 ug/dl (49-181); Potassium 3.9 mmol/L (3.5-5.1); Sodium 138 mmol/L (135-145); Total Bilirubin 0.5 mg/dl (0.2-1.3); Total Protein 7.1 g/dl (6.3-8.2); eGFR > 60.00
[2023-06-13 14:23] LABS: Percent Saturation 20 % (20-50); Total Iron Binding Capacity 353 ug/dl (261-462)
== END ==
LOC: REG 12:10
PROVIDERS: ATTENDING PHYSICIAN Physician Assistant
DX: R53.83 Other fatigue (principal); R09.89 Other specified symptoms and signs involving the circulatory and respiratory systems; I42.9 Cardiomyopathy, unspecified; I10 Essential (primary) hypertension; I50.22 Chronic systolic (congestive) heart failure; G47.10 Hypersomnia, unspecified
CPT/HCPCS: 36415; 71046; 80053; 82728; 83540; 83550; 83880; 85025

== ENCOUNTER → 2023-07-12 12:46 | Outpatient (REF) | payer MEDICARE, OTHER, SELFPAY | LOC: RSP 12:46 | PROVIDERS: ATTENDING PHYSICIAN Internal Medicine | DX: R06.02 Shortness of breath (principal); J96.12 Chronic respiratory failure with hypercapnia; R05.9 Cough, unspecified | CPT/HCPCS: 94727; 94729; 88738; 94010 ==

== ENCOUNTER → 2023-08-02 13:27 | Outpatient (REF) | payer MEDICARE, OTHER, SELFPAY | LOC: MRI 13:27 | PROVIDERS: ATTENDING PHYSICIAN Internal Medicine | DX: G47.10 Hypersomnia, unspecified (principal); R41.3 Other amnesia; R26.9 Unspecified abnormalities of gait and mobility | CPT/HCPCS: 70551 ==

== ENCOUNTER 2023-10-16 03:08 | Observation (INO) | payer MEDICARE, OTHER, SELFPAY ==
[2023-10-15 21:29] VITALS: BP 145/70; BMI 30.7
[2023-10-15 21:43] LABS: % Basophils 0.7 % (0-2); % Eosinophils 3.1 % (0-6); % Immature Granulocytes 0.3 % (0-0.5); % Lymphocytes 24.3 % (20.5-51.1); % Monocytes 11.1 % (1.7-9.3); % Neutrophils 60.5 % (42.2-75.2); Absolute Eosinophils 0.2 10^3/uL (0-0.7); Absolute Lymphocytes 1.5 10^3/uL (1.2-3.4); Absolute Monocytes 0.7 10^3/uL (0.1-0.6); Absolute Neutrophils 3.7 10^3/uL (1.4-6.5); Hematocrit 37.7 % (39.0-52.0); Hemoglobin 13.4 g/dL (13.0-18.0); Mean Corp Hgb Conc. 35.5 g/dL (33.0-37.0); Mean Corpuscular Hgb 30.9 pg (27.0-31.0); Mean Corpuscular Volume 86.9 fL (80.0-94.0); Mean Platelet Volume 10.3 fL (7.4-10.4); Nucleated Red Blood Cells % 0 % (-); Platelet Count 192 10^3/uL (130-400); Red Blood Cell Count 4.34 10^6/uL (4.70-6.10); Red Cell Dist. Width 13.9 % (11.5-14.5); White Blood Cell Count 6.1 10^3/uL (4.8-10.8)
[2023-10-15 21:55] LABS: Lactic Acid 1.3 mmol/L (0.7-2.0)
[2023-10-15 21:57] LABS: COVID-19 Antigen Negative (Negative)
[2023-10-15 22:00] VITALS: BP 144/71
[2023-10-15 22:01] LABS: ALT (SGPT) 28 U/L (0-50); AST (SGOT) 33 U/L (17-59); Albumin 4.4 g/dl (3.5-5.0); Alkaline Phosphatase 49 U/L (38-126); Blood Urea Nitrogen 19 mg/dl (9-20); Calcium 9.2 mg/dl (8.4-10.2); Carbon Dioxide 23 mmol/L (22-30); Chloride 105 mmol/L (98-107); Estimated Creatinine Clearance 65 ml/min; Glucose 93 mg/dl (70-99); Sodium 136 mmol/L (135-145); Total Bilirubin 0.6 mg/dl (0.2-1.3); Total Protein 7.1 g/dl (6.3-8.2); eGFR > 60.00
[2023-10-15 23:00] VITALS: BP 142/67
--- NOTE | 2023-10-15 23:01 | ED.GENMED ---
History of Present Illness
General
Chief Complaint: Change in Mental Status
Source: patient and spouse
Exam Limitations: none
Time Seen by Provider: 10/15/23 22:38
Nursing documentation reviewed up to this point in time: agreed with
History of Present Illness
History of Present Illness:
The patient is an 88-year-old man with recently diagnosed dementia who was brought in by his for an mental status change. His reports that he had been napping and she heard him scream her name out. When she checked up on him, he was
awake but had his eyes shut. She reports that he was not answering her questions like he normally would. She reports that initially he said he could not move his arms or legs. Additionally, she reports that he keeps whispering his words and
saying that he cannot speak like he normally does. His reports that he never acts this way. The patient denies all complaints. He keeps whispering and states that he cannot project his words. He denies headache, chest pain or shortness of
breath.
Past History
Past History
ED Past Medical History: CHF, GERD, HTN, Hypercholesterolemia and Other ( Ulcerated hiatal hernia, Prostatitis, ischemic cardiomyopathy, dementia)
ED Past Surgical History: Cardiac (Biventricular ICD), Orthopedic (Hugh knee replacements) and Other (Hiatal hernia surgery)
Patient has exhibited threatening behavior?: No
PSI?: No
Social History
Tobacco: Non-smoker
Alcohol: Occasional
Drug: None
Personal:
Living: assisted living ([facility])
Employment: Retired
Family History
Family History: Other (Noncontributory)
Review of Systems
Review of Systems
Allergies reviewed?: Yes
Other source history: other ()
All Other Systems: ROS reviewed and negative except as documented in HPI and ROS
EENT: Reports no symptoms
Respiratory: Reports no symptoms
Cardiac: Reports no symptoms
ABD/GI: Reports no symptoms
: Reports no symptoms
Musculoskeletal: Reports no symptoms
Skin: Reports no symptoms
Neurological: Reports other
Endocrine: Reports no symptoms
Hematologic/Lymphatic: Reports no symptoms
Psychiatric: Reports no symptoms
Phy Exam
Physical Exam
Physical Exam:
Physical Exam
General: no apparent distress, patient is fully awake and alert but barely interactive. Does give eye contact but then shuts his eyes. However, easily awakens
Neck: supple. no meningeal signs. normal psoterior pharynx
Heart: s1/s2 regular rate and rhythm,
Lungs: no acute respiratory distress. clear bilaterally
Abdomen: normal bowel sounds. not tender. no CVAT
Neuro: alert and oriented to self and place. Does not know date. no focal neurological deficits. Follows all simple commands. Moves all extremities equally bilaterally. Answers all simple questions. Is whispering and
refuses to raise his voice to a normal speaking volume
Skin: no rash
Psychiatric: well kept. interactive and cooperative
Extremities: no edema. no calf tenderness. negative homans. good distal pulses
Course
Orders/Labs/Results
Orders:
Orders
10/15/23 21:26
Electrocardiogram (*1) Urgent
Reason for Study: Other
Other Reason for Exam: Change in Mental status
10/15/23 21:27
Urinalysis Reflex To Culture Urgent
Date Specimen was Collected: 10/15/23
Time Specimen was Collected: 21:28
10/15/23 21:28
EKG- Treatment ONCE
10/15/23 21:37
COVID-19 Antigen Urgent
Source: Nasal Swab
Complete Blood Count/With Diff Urgent
Comprehensive Metabolic Panel Urgent
Lactic Acid Urgent
10/15/23 23:02
Troponin I Urgent
10/15/23 23:12
CT Head W/o Iv Contrast Urgent
Comment:
Reason For Exam: confusion
CR Chest - 2 Views Urgent
Comment:
Reason For Exam: confusion
Abnormal Lab Results
10/15/23
21:37
RBC 4.34 L 10^6/uL
(4.70-6.10)
Hct 37.7 L %
(39.0-52.0)
Absolute Monos (auto) 0.7 H 10^3/uL
(0.1-0.6)
Monocytes % 11.1 H %
(1.7-9.3)
10/15/23 21:37
10/15/23 21:37
Vital Signs
Initial and Last Documented VS:
Initial Vital Signs
Temp Pulse Resp BP Pulse Ox
97.5 F 49 20 145/70 95
10/15/23 21:29 10/15/23 21:29 10/15/23 21:29 10/15/23 21:29 10/15/23 21:29
Last Documented Vital Signs
Temp Pulse Resp BP Pulse Ox
97.5 F 51 23 144/71 92
10/15/23 21:29 10/15/23 22:00 10/15/23 21:45 10/15/23 22:00 10/15/23 22:00
MDM/Problems Addressed
Differential Diagnosis Includes:
Acute dehydration, urinary tract infection, pneumonia, intracranial hemorrhage, behavioral
MDM/Problems Addressed:
Patient presents with acute mental status change. Patient also found to be hypoxic at 88% on room air
Chronic conditions affecting care:
Given patient has a history of dementia, this can be an exacerbation of his dementia
Acute Exacerbation and/or Progression of Chronic Illness:
Patient may have acute exacerbation of chronic dementia
*Pulse Oximetry
Patient hypoxic: yes
Comment: 88% on room air. 92% on 2 L
*EKG
Interpreted by ED Provider?: Yes
Interpretation: abnormal
Comparison EKG: changes noted
Rate: normal
Rhythm: av sequential
[place]: left axis deviation
Interval: normal interval
QRS Pattern: wide non-specific
Ischemia: non-specific ST changes
*Tab Machine Operator Interpretation
Rate: normal
Interpretation: abnormal
Rhythm: av sequential
*Critical Care Note
Total Time (30-74mins, 75-104mins- exclusive of procedures): Not Applicable
Data Reviewed
Review of Other/Old Records Reveals: Discharge Summary (Discharge summary reviewed from July 2023 when patient presented with acute confusion and hypoxia and found to be COVID-positive)
Source: patient and spouse
ED Attending Note
-
Portions of this chart may have been created with voice recognition software.� Occasional wrong word or��sound alike� substitutions may have occurred due to the inherent limitations of voice recognition software.
Discharge Plan
Departure
Prescriptions:
No Action
simvastatin 40 MG tablet
40 mg PO HS
omeprazole 40 MG capsule,delayed release(DR/EC)
40 mg PO BID
tamsulosin 0.4 MG capsule
0.8 mg PO HS
nifedipine 60 MG tablet extended release
60 mg PO DAILY Qty: 30 0RF
metoprolol succinate [Toprol XL] 50 mg Tablet Extended Release 24 Hr
50 mg PO HS
donepezil 5 mg Tablet
5 mg PO DAILY
aspirin 81 mg Tablet,Chewable
81 mg PO DAILY
cholecalciferol (vitamin D3) 50 mcg (2,000 unit) Tablet
50 mcg PO DAILY Qty: 30 1RF
acetaminophen 325 mg Tablet
650 mg PO Q6HPRN PRN (Reason: mild pain/fever)
potassium chloride [Klor-Con M20] 20 mEq tablet,ER particles/crystals
20 meq PO DAILY
furosemide 20 mg tablet
20 mg PO DAILY
Referrals:
Richie Fonseca MD [Family Provider] -
Interventions
Interventions:
*Risk Screen - Suicide Last Done: 10/15/23 21:29
*General Assessment Last Done: 10/15/23 21:29
*Neglect/Abuse Screening Last Done: 10/15/23 21:29
ED- Neurological Assessment Last Done: 10/15/23 21:38
Discharge Date and Time
Print Language: ERITREAN
[2023-10-16] VITALS (10 sets, daily range): BP systolic 125–181; BP diastolic 71–90; PULSE 50–51; O2SAT 94–95; BMI 31.0
[2023-10-16 00:24] LABS: Troponin I 0.018 ng/ml
[2023-10-16 00:29] LABS: NT-proBNP 816 pg/ml
--- NOTE | 2023-10-16 01:01 | ED.GENMED ---
History of Present Illness
General
Chief Complaint: Change in Mental Status
Source: patient and spouse
Time Seen by Provider: 10/15/23 22:38
Nursing documentation reviewed up to this point in time: agreed with
History of Present Illness
History of Present Illness:
This chart was opened because my previous note was locked prematurely.
Past History
Past History
ED Past Medical History: CHF, GERD, HTN, Hypercholesterolemia and Other ( Ulcerated hiatal hernia, Prostatitis, ischemic cardiomyopathy, dementia)
ED Past Surgical History: Cardiac (Biventricular ICD), Orthopedic (Hugh knee replacements) and Other (Hiatal hernia surgery)
Patient has exhibited threatening behavior?: No
PSI?: No
Social History
Tobacco: Non-smoker
Alcohol: Occasional
Drug: None
Personal:
Living: assisted living ([facility])
Employment: Retired
Family History
Family History: Other (Noncontributory)
Phy Exam
Physical Exam
Physical Exam:
See my note from same visit
Course
Orders/Labs/Results
Orders:
Orders
10/15/23 21:26
Electrocardiogram (*1) Urgent
Reason for Study: Other
Other Reason for Exam: Change in Mental status
10/15/23 21:27
Urinalysis Reflex To Culture Urgent
Date Specimen was Collected: 10/15/23
Time Specimen was Collected: 21:28
10/15/23 21:28
EKG- Treatment ONCE
10/15/23 21:37
COVID-19 Antigen Urgent
Source: Nasal Swab
Complete Blood Count/With Diff Urgent
Comprehensive Metabolic Panel Urgent
Lactic Acid Urgent
10/15/23 23:12
CT Head W/o Iv Contrast Urgent
Comment:
Reason For Exam: confusion
CR Chest - 2 Views Urgent
Comment:
Reason For Exam: confusion
10/15/23 23:53
NT-proBNP Urgent
Comment: ADD ON
Troponin I Urgent
10/16/23 00:05
Add On- LAB Urgent
Tests Added?: pro-BNP
Abnormal Lab Results
10/15/23
21:37
RBC 4.34 L 10^6/uL
(4.70-6.10)
Hct 37.7 L %
(39.0-52.0)
Absolute Monos (auto) 0.7 H 10^3/uL
(0.1-0.6)
Monocytes % 11.1 H %
(1.7-9.3)
10/15/23 21:37
10/15/23 21:37
Vital Signs
Initial and Last Documented VS:
Initial Vital Signs
Temp Pulse Resp BP Pulse Ox
97.5 F 49 20 145/70 95
10/15/23 21:29 10/15/23 21:29 10/15/23 21:29 10/15/23 21:29 10/15/23 21:29
Last Documented Vital Signs
Temp Pulse Resp BP Pulse Ox
97.5 F 56 16 149/90 94
10/15/23 21:29 10/16/23 01:00 10/16/23 01:00 10/16/23 01:00 10/16/23 01:00
*Radiology
Radiology exam reviewed: preliminary read by ED provider (Chest x-ray reviewed by me. No acute disease) and radiology read reviewed
*Pulse Oximetry
Patient hypoxic: yes
*EKG
Interpreted by ED Provider?: NA
*Natural Resources Manager Interpretation
Rate: Natural Resources Manager- N/A
*Critical Care Note
Total Time (30-74mins, 75-104mins- exclusive of procedures): Not Applicable
Data Reviewed
Source: patient and spouse
Patient Management
Discussion with other providers: Hospitalist
Escalation/DeEscalation of care consider admission/obs:
Given patient's acute hypoxia and mental status change that his states is very unusual, decision made to admit the patient.
ED Attending Note
-
Portions of this chart may have been created with voice recognition software.� Occasional wrong word or��sound alike� substitutions may have occurred due to the inherent limitations of voice recognition software.
Discharge Plan
Departure
Patient Disposition: Admit
Date of Disposition: 10/16/23
Time of Disposition: 01:04
Admit to: Med/Surg
Presentation/result/management discussed w/ accepting MD/DO: Hospitalist
Patient with high blood pressure during this ER visit?: Yes
Condition: Good
Covid-19: Negative COVID-19
Discharge Problem:
Acute alteration in mental status, Acute hypoxia
Prescriptions:
No Action
simvastatin 40 MG tablet
40 mg PO HS
omeprazole 40 MG capsule,delayed release(DR/EC)
40 mg PO BID
tamsulosin 0.4 MG capsule
0.8 mg PO HS
nifedipine 60 MG tablet extended release
60 mg PO DAILY Qty: 30 0RF
metoprolol succinate [Toprol XL] 50 mg Tablet Extended Release 24 Hr
50 mg PO HS
donepezil 5 mg Tablet
5 mg PO DAILY
aspirin 81 mg Tablet,Chewable
81 mg PO DAILY
cholecalciferol (vitamin D3) 50 mcg (2,000 unit) Tablet
50 mcg PO DAILY Qty: 30 1RF
acetaminophen 325 mg Tablet
650 mg PO Q6HPRN PRN (Reason: mild pain/fever)
potassium chloride [Klor-Con M20] 20 mEq tablet,ER particles/crystals
20 meq PO DAILY
furosemide 20 mg tablet
20 mg PO DAILY
Referrals:
Richie Fonseca MD [Family Provider] -
Interventions
Interventions:
*Risk Screen - Suicide Last Done: 10/15/23 21:29
*General Assessment Last Done: 10/15/23 21:29
*Neglect/Abuse Screening Last Done: 10/15/23 21:29
ED- Neurological Assessment Last Done: 10/15/23 21:38
Discharge Date and Time
Print Language: ICELANDIC
--- NOTE | 2023-10-16 03:04 | HPS.HSE ---
Family Physician
-
Family Physician: Richie Fonseca
Chief Complaint
-
Change in Mental Status
History of Present Illness
Patient is an 88y M with PMH significant for hypertension, senile dementia and dilated cardiomyopathy who presents to ED from local [place] for evaluation of mental status change. History obtained from patient and discussion with ED staff. Patient
was noted to be less responsive than usual. He arrived at the ED where he would speak only in whispers and seemed somewhat withdrawn. His arrived and noted that this was clearly a change for him. No recent apparent symptoms / complaints. No
recent medication changes.
Evaluation in the ED was largely unremarkable. Patient was noted at times to have SpO2 into the high 80s during sleep.
At the time of my examination, patient was awake and alert and had normal speaking volume. He is aware that he is in [facility].
He denies any complaints at this time. He specifically denies headache, chest pain, dyspnea, abdominal pain, etc.
Medical History
Past Medical History
Past Medical History: Reports Other
Additional Past Medical History:
Hypertension
Dilated Cardiomyopathy
Senile Dementia
GERD / PUD
BPH
Dyslipidemia
Past Surgical History: Reports Other
Additional Past Surgical History:
AICD Placement
Ankle Surgery
Social History
Unable to obtain full social history at this time due to: Dementia
Family History
Family History: Unable to Obtain
Allergies / Home Medications
Allergies reflects when Allergies were last updated in [facility].
Home Medications with original date entered in [facility]
Allergy/Medication List:
Allergies
Allergy/AdvReac Type Severity Reaction Status Date / Time
No Known Allergies Allergy Verified 04/25/23 12:11
Home Medications
simvastatin 40 mg tablet 40 mg PO HS High cholesterol 03/07/10
omeprazole 40 mg capsule,delayed release 40 mg PO BID Gastrointestinal issue 04/07/16
tamsulosin 0.4 mg capsule 0.8 mg PO HS Urinary issue 05/26/21
nifedipine 60 mg tablet,extended release 60 mg PO DAILY #30 tabs 05/31/21
metoprolol succinate 50 mg tablet,extended release 24 hr (Toprol XL) 50 mg PO HS Blood Pressure 06/16/22
donepezil 5 mg tablet 5 mg PO DAILY Neurological Condition 01/26/23
aspirin 81 mg chewable tablet 81 mg PO DAILY 04/25/23
cholecalciferol (vitamin D3) 50 mcg (2,000 unit) tablet 50 mcg PO DAILY #30 tabs 05/03/23
acetaminophen 325 mg tablet 650 mg PO Q6HPRN PRN mild pain/fever 10/15/23
furosemide 20 mg tablet 20 mg PO DAILY 10/15/23
potassium chloride 20 mEq tablet,extended release(part/cryst) (Klor-Con M) 20 meq PO DAILY 10/15/23
Review of Systems
-
Unable to obtain full review of systems at this time due to: Dementia
History Source: Patient
Respiratory: Denies Cough or Trouble Breathing
Cardiac: Denies Chest Pain or Palpitations
Abdomen/GI: Denies Abdominal Pain, Nausea, Vomiting or Diarrhea
Neurological: Denies Dizzy or Headache
Psych: Denies Anxiety
Physical Exam
Vital Signs
Vital Signs
Temp Pulse Resp BP Pulse Ox
97.5 F 56 16 149/90 94
10/15/23 21:29 10/16/23 01:00 10/16/23 01:00 10/16/23 01:00 10/16/23 01:00
Physical Exam
General: Other (88y M in no acute distress.)
HEENT: Moist mucous membranes and PERRLA
Respiratory: Other (Few rales at the R base - otherwise clear. No wheeze / rhonchi.)
Cardiac: S1/S2 and Regular Rhythm; No Murmur
GI: Soft, Non Tender, Non Distended and Normal Bowel Sounds
Musculoskeletal: No Clubbing, No Cyanosis and No Edema
Neuro: Awake, Alert and Nonfocal/grossly intact
Laboratory Results
-
10/15/23 21:37
10/15/23 21:37
Laboratory Results
Lactic Acid 1.3 mmol/L (0.7-2.0) 10/15/23 21:37
Total Bilirubin 0.6 mg/dl (0.2-1.3) 10/15/23 21:37
AST 33 U/L (17-59) 10/15/23 21:37
ALT 28 U/L (0-50) 10/15/23 21:37
Alkaline Phosphatase 49 U/L (38-126) 10/15/23 21:37
Troponin I 0.018 ng/ml 10/15/23 23:53
Impression/Plan
-
A/P: Patient is an 88y M with PMH significant for dementia and hypertension who presents to ED for evaluation of change from baseline mental status.
Change in Mental Status
Senile Dementia
- Observe overnight for further evaluation and treatment.
- Work-up thus far has been wholly unremarkable.
- Patient speaking normally at the time of my examination - ? closer to usual baseline.
- Monitor for any new / recurrent changes.
- Continue usual med regimen without changes.
- ? progression of dementia if no underlying etiology can be found.
- UA is pending.
Mild / Intermittent Hypoxemia
- SpO2 reportedly into the 80s on room air at times - typically during sleep per staff.
- Patient denies cough or dyspnea.
- Had PFTs done in July with mild restrictive disease and slightly decreased DLCO2.
- Continue O2 if needed.
- CXR is unremarkable / poor inspiration.
- Encourage deep breathing / IS use.
- Monitor for any new / worsening symptoms.
Dilated Cardiomyopathy
- Stable. No evidence of volume overload.
- Has AICD in place.
- Last Echo (01/2023) with recovered EF (55-60%).
- Continue current meds / Lasix dosing unchanged.
Benign Hypertension
- Stable. Continue current meds with holding parameters.
- Adjust as needed to avoid hypotension and / or bradycardia.
GERD / History of PUD
- Stable. Continue PPI.
BPH
- Stable. Continue tamsulosin.
DVT Prophylaxis: SCDs
Code Status: DNR
[2023-10-16 07:07] LABS: Hematocrit 39.9 % (39.0-52.0); Hemoglobin 13.7 g/dL (13.0-18.0); Mean Corp Hgb Conc. 34.3 g/dL (33.0-37.0); Mean Corpuscular Hgb 31.1 pg (27.0-31.0); Mean Corpuscular Volume 90.5 fL (80.0-94.0); Mean Platelet Volume 9.8 fL (7.4-10.4); Platelet Count 175 10^3/uL (130-400); Red Blood Cell Count 4.41 10^6/uL (4.70-6.10); Red Cell Dist. Width 13.9 % (11.5-14.5); White Blood Cell Count 5.5 10^3/uL (4.8-10.8)
[2023-10-16 07:43] LABS: Blood Urea Nitrogen 16 mg/dl (9-20); Calcium 9.3 mg/dl (8.4-10.2); Carbon Dioxide 26 mmol/L (22-30); Chloride 104 mmol/L (98-107); Estimated Creatinine Clearance 70 ml/min; Glucose 96 mg/dl (70-99); Potassium 3.7 mmol/L (3.5-5.1); Sodium 138 mmol/L (135-145); eGFR > 60.00
[2023-10-16 08:09] LABS: TSH Reflex To Free T4 2.04 uIU/ml (0.47-4.68)
[2023-10-16 09:37] LABS: Urine Albumin Negative (Neg - Trace); Urine Bilirubin Negative (Negative); Urine Character Clear (Clear); Urine Color Yellow; Urine Glucose Negative (Negative); Urine Ketone Negative (Negative); Urine Leukocyte Negative (Negative); Urine Nitrite Negative (Negative); Urine Occult Blood Negative (Negative); Urine Urobilinogen Negative (Neg - 1+)
[2023-10-16] MEDS: PROTONIX 40 MG PO (09:50)
[2023-10-16] MEDS: VITAMIN D3 (cholecalciferol) 50 MCG PO (09:50)
[2023-10-16] MEDS: KCL 20 MEQ PO (09:50)
[2023-10-16] MEDS: ARICEPT 5 MG PO (09:50)
[2023-10-16] MEDS: PROCARDIA XL (EXTENDED RELEASE) 60 MG PO (09:51)
[2023-10-16] MEDS: LASIX 20 MG PO (09:51)
[2023-10-16] MEDS: LOW STRENGTH ASPIRIN 81 MG PO (09:51)
--- NOTE | 2023-10-16 15:08 | CM ---
Addendum entered by Kristen Cardenas 10/16/23 15:50:
CM called to Personal Care department and spoke with Cassandra provided information about [facility] and phone number for unit if questions. Patient was independent prior to admission with rolling walker. CM provided information from PT/OT
assessment. to provide transportation home. CM will continue to follow for discharge planning needs.
Addendum entered by Kristen Cardenas 10/16/23 15:35:
Patient reviewed OBS/S[facility] form with CM via phone and is here to take patient home. CM sent referral to [facility] to Liaison. CM will update [place] and continue to follow for discharge planning needs.
Original Note:
Patient seen at bedside with physician. Patient states that he wants to go home. Patient states he lives in an independent apartment in [place]. Patient states he uses a walker for ambulation and his is the primary helper driver. Patient stated that
his PCP is Dr. Fonseca and patient asked several times to go home. CM reviewed OBS/S[facility]NC[facility] form and patient signed form . CM called to patient and left for her requesting call back to confirm ability for patient to go home. CM reviewed chart and
no other number other than initial home phone number provided. Per PT/OT recommendation is for home health. CM left for Emmie to confirm patient is in independent apartment as patient stated and not in personal care. CM called to Porfirio Mckeon
who is covering for Emmie [phone]. Per Porfirio patient is in personal care. CM will continue to follow for discharge planning needs.
Plan; return to Personal care; pending VN recommendation by therapy, awaiting call back from personal care unit.
--- NOTE | 2023-10-16 15:27 | W.PN.HOSP.TC ---
Today's Communication/Plan
-
d/c
Assessment / Plan
Assessment / Plan
pt is an 88 year old male
Change in Mental Status likely progression of senile dementia-- Work-up thus far has been wholly unremarkable-- Continue usual med regimen without changes--UA negative
Mild/Intermittent Hypoxemia- SpO2 reportedly into the 80s on room air at times - typically during sleep per staff-- Had PFTs done in July with mild restrictive disease and slightly decreased DLCO2-- Continue O2 if needed-- CXR is unremarkable / poor
inspiration- Encourage deep breathing / IS use.
Dilated Cardiomyopathy- Stable. No evidence of volume overload- Has AICD in place- Last Echo (01/2023) with recovered EF (55-60%)- Continue current meds / Lasix dosing unchanged.
Essential Hypertension - Stable. Continue current meds with holding parameters- Adjust as needed to avoid hypotension and / or bradycardia.
GERD / History of PUD- Stable. Continue PPI.
BPH- Stable. Continue tamsulosin.
DVT Prophylaxis: SCDs
Code Status: DNR
Anticipated Discharge: Today
Subjective/Interval History
-
Date of Service: October 16, 2023
pt without c/o
Objective Data
-
Labs:
Laboratory Results
10/16/23
06:43
WBC 5.5
Hgb 13.7
Hct 39.9
Plt Count 175
Sodium 138
Potassium 3.7
Chloride 104
Carbon Dioxide 26
BUN 16
Creatinine 0.8
Glucose 96
Calcium 9.3
Vital Signs:
max temp for 24 hours
10/16/23
04:15
Temp 97.6 F
Vital Signs
Temp Pulse Resp BP Pulse Ox
97.4 F 53 18 177/78 94
10/16/23 11:00 10/16/23 11:00 10/16/23 11:00 10/16/23 11:00 10/16/23 11:00
Review of Systems
-
All other systems: Reviewed and negative
Physical Exam
-
General: Well Developed, Well Nourished and No Apparent Distress
HEENT: Normocephalic and Atraumatic
Respiratory: Clear to Auscultation; Negative Wheezes or Rhonchi
Cardiac: Regular Rhythm and S1/S2; Negative Murmur
GI: Soft, Nontender, Nondistended and Normal Bowel Sounds
Musculoskeletal: No Clubbing, No Cyanosis and No Edema
Neuro: Awake and Alert
Psych: Calm
--- NOTE | 2023-10-17 07:11 | W.DCSUMMARY ---
Discharge Summary
Discharge Data
Date of Admission: 10/16/23
Date of Discharge: 10/17/23
-
Pending Results: No
Hospital Course
Primary care physician : Richie Fonseca
Principal Discharge diagnosis : Change in mental status, mild/intermittent hypoxemia
Chronic Discharge diagnosis : Dilated cardiomyopathy, essential hypertension, gastroesophageal reflux disease, history of peptic ulcer disease, benign prostatic hyperplasia
Hospital Course : Patient was an 88-year-old male with senile dementia and dilated cardiomyopathy who presented from the local assisted living/[facility] for evaluation of change in mental status. The patient was noted to be less responsive than usual.
In the emergency department he would only speak in whispers and was withdrawn. His noted that this was a change for him. During sleep, patient was noted to have a pulse ox in the high 80s. By the time the admitting doctor saw the patient,
patient was awake alert and aware that he was in the hospital. He denied any complaints. He was brought in as observation.
Problem #1: Change in mental status. Patient was back to baseline by the time the admitting doctor saw the patient. Urinalysis was negative, chest x-ray was negative. There is no sign of any infection. CAT scan of his head showed no acute
intracranial abnormalities but did show diffuse cortical atrophy and nonspecific white matter changes. Since the workup was negative, leading theory is this is progressive dementia.
Problem #2: Mild/intermittent hypoxemia. This was noted to happen during sleep. Chest x-ray was unremarkable but did show poor inspiration. Pulmonary function test were done in July and he had mild restrictive disease with slightly decreased
DLCO2. He may need a formal sleep study.
Problem #3: All other medical issues. This includes Dilated cardiomyopathy, essential hypertension, gastroesophageal reflux disease, history of peptic ulcer disease, benign prostatic hyperplasia. These medical issues were stable during his
hospitalization. Medications were continued as able.
Patient is stable to return to [facility] at this time. If there are any questions regarding this dictation or his hospital stay, please not hesitate to call. Our office number is [phone]. Of note, patient should not drive given his significant
dementia.
Important imaging findings :
HEAD CT IMPRESSION:
No acute intracranial abnormalities.
Findings again seen compatible with diffuse cortical atrophy with nonspecific white matter changes as described above.
Discharge Plan
-
Patient Disposition: Home (Routine Discharge)
Discharge Diagnosis/Procedures: Change in mental status likely secondary to progressive senile dementia, mild intermittent hypoxemia while sleeping, history of dilated cardiomyopathy, essential hypertension, gastroesophageal reflux disease with
history of peptic ulcer disease, benign prostatic hyperplasia
Condition: Good
Diet: As tolerated
Activity: As tolerated
Driving Restrictions: No driving
Bathing Restrictions: None
Referrals:
Richie Fonseca MD [Family Provider] - in less than 1 week
Prescriptions:
Continued
simvastatin 40 MG tablet
40 mg PO HS
omeprazole 40 MG capsule,delayed release(DR/EC)
40 mg PO BID
tamsulosin 0.4 MG capsule
0.8 mg PO HS
metoprolol succinate [Toprol XL] 50 mg Tablet Extended Release 24 Hr
50 mg PO HS
donepezil 5 mg Tablet
5 mg PO DAILY
aspirin 81 mg Tablet,Chewable
81 mg PO DAILY
acetaminophen 325 mg Tablet
650 mg PO Q6HPRN PRN (Reason: mild pain/fever)
potassium chloride [Klor-Con M20] 20 mEq tablet,ER particles/crystals
20 meq PO DAILY
furosemide 20 mg tablet
20 mg PO DAILY
nifedipine 60 MG tablet extended release
60 mg PO DAILY Qty: 30 0RF
cholecalciferol (vitamin D3) 50 mcg (2,000 unit) Tablet
50 mcg PO DAILY Qty: 30 1RF
Discharge Orders:
Discharge Patient (As Directed); Ordered 10/16/23
Ordered By: Kayy Swartz
Discharge Date and Time
Discharge Date/Time: 10/16/23 16:15
Print Language: MALTESE
== END 2023-10-16 16:15 | disposition home health service (06) ==
LOC: 3 WEST ACU 03:08
PROVIDERS: ADMITTING PHYSICIAN Hospitalist; ATTENDING PHYSICIAN Internal Medicine; EMERGENCY PHYSICIAN Emergency Medicine; FAMILY PHYSICIAN Internal Medicine
DX: R41.82 Altered mental status, unspecified (principal); F03.90 Unspecified dementia, unspecified severity, without behavioral disturbance, psychotic disturbance, mood disturbance, and anxiety; R09.02 Hypoxemia; I11.0 Hypertensive heart disease with heart failure; I50.9 Heart failure, unspecified; K21.9 Gastro-esophageal reflux disease without esophagitis; I25.5 Ischemic cardiomyopathy; E78.00 Pure hypercholesterolemia, unspecified; I42.0 Dilated cardiomyopathy; N40.0 Benign prostatic hyperplasia without lower urinary tract symptoms; Z79.82 Long term (current) use of aspirin; Z96.653 Presence of artificial knee joint, bilateral; Z87.11 Personal history of peptic ulcer disease; Z95.810 Presence of automatic (implantable) cardiac defibrillator; Z66 Do not resuscitate; Z11.52 Encounter for screening for COVID-19
CPT/HCPCS: 70450; 71046; 80048; 80053; 81003; 83605; 83880; 84443; 84484; 85025; 85027; 87070; 87811; 93005; 97162; 97166; 99285; G0378

== ENCOUNTER 2023-10-19 23:08 | Emergency (ER) | payer MEDICARE, OTHER, SELFPAY ==
[2023-10-19 23:16] VITALS: BP 140/82
--- NOTE | 2023-10-19 23:46 | ED.GENMED ---
History of Present Illness
<Kanwal Palma MD, Resident - Last Filed: 10/20/23 00:41>
General
Chief Complaint: Change in Mental Status
Source: patient, spouse, ambulance crew and other (EMS)
Time Seen by Provider: 10/19/23 23:09
History of Present Illness
History of Present Illness:
88-year-old male, Mr. Parviz Howell was brought by EMS from [facility]. His reports that the patient was screaming and when she came to check, he became unresponsive and was just blinking to her questions. Patient was able
to speak at baseline before the event. He has a past medical history of dementia, hypertension, congestive heart failure, hyperlipidemia and BPH. No history of recent fevers, lightheadedness/dizziness, chest pain, SOB, abdominal pain, bladder or
bowel disturbances. Patient has a recent hospital admission on 10/16/2023 for acute change in mental status. CT head at that time showed no acute intracranial abnormalities, and showed evidence of diffuse cortical atrophy with nonspecific white
matter changes. As per patient's , he was started on donepezil during his prior admission.
<Dez Magdaleno, DO - Last Filed: 10/20/23 00:38>
General
Exam Limitations: dementia
Past History
<Kanwal Palma MD, Resident - Last Filed: 10/20/23 00:41>
Past History
ED Past Medical History: CHF, GERD, HTN, Hypercholesterolemia and Other ( Ulcerated hiatal hernia, Prostatitis, ischemic cardiomyopathy, dementia)
ED Past Surgical History: Cardiac (Biventricular ICD), Orthopedic (Hugh knee replacements) and Other (Hiatal hernia surgery)
Patient has exhibited threatening behavior?: No
PSI?: No
Social History
Tobacco: Non-smoker
Alcohol: Occasional
Drug: None
Personal:
Living: assisted living ([facility])
Employment: Retired
Family History
Family History: Other (Noncontributory)
Phy Exam
<Kanwal Palma MD, Resident - Last Filed: 10/20/23 00:41>
Physical Exam
Physical Exam:
GEN: Patient is fully alert and awake, and interactive. He is responding to verbal stimuli.
Eyes: PERRLA, EOMs intact, no scleral icterus
HENT: NCAT, oral mucosa moist, no JVD, no cervical adenopathy.
Lungs: CTAB, no wheezes, rales, rhonchi, normal chest wall excursion
Cardiac: S1, S2+, no M/R/G, no peripheral edema. Radial pulses 2+ bilat
Abdomen: S, NT, ND, NABS, no masses or hepatosplenomegaly
Neuro: AO x 2, he does know that he is not [facility], but does not know the date/day. He is following simple commands., Responding by whispering, but he is screaming when IV line is put. No focal deficits to BUE/BLE, normal sensation
throughout
Skin: No rashes, petechiae. Normal color, no pallor or jaundice.
Course
<Kanwal Palma MD, Resident - Last Filed: 10/20/23 00:41>
Orders/Labs/Results
Orders:
Orders
10/19/23 23:38
CMP [Comprehensive Metabolic Panel] Urgent
Complete Blood Count/With Diff Urgent
10/19/23 23:45
Urinalysis Urgent
Date Specimen was Collected: 10/20/23
Time Specimen was Collected: 00:35
Abnormal Lab Results
10/19/23
23:38
RBC 4.21 L 10^6/uL
(4.70-6.10)
Hct 36.7 L %
(39.0-52.0)
MCH 31.4 H pg
(27.0-31.0)
Monocytes % 11.2 H %
(1.7-9.3)
BUN 30 H mg/dl
(9-20)
Glucose 104 H mg/dl
(70-99)
10/19/23 23:38
10/19/23 23:38
Vital Signs
Initial and Last Documented VS:
Initial Vital Signs
Temp Pulse Resp BP Pulse Ox
98.0 F 58 20 140/82 94
10/19/23 23:16 10/19/23 23:16 10/19/23 23:16 10/19/23 23:16 10/19/23 23:16
Last Documented Vital Signs
Temp Pulse Resp BP Pulse Ox
98.0 F 53 13 127/70 93
10/19/23 23:16 10/20/23 00:00 10/20/23 00:00 10/20/23 00:00 10/19/23 23:17
<Dez Magdaleno, DO - Last Filed: 10/20/23 00:38>
Orders/Labs/Results
Orders:
Orders
10/19/23 23:38
CMP [Comprehensive Metabolic Panel] Urgent
Complete Blood Count/With Diff Urgent
10/19/23 23:45
Urinalysis Urgent
Date Specimen was Collected: 10/20/23
Time Specimen was Collected: 00:35
Abnormal Lab Results
10/19/23
23:38
RBC 4.21 L 10^6/uL
(4.70-6.10)
Hct 36.7 L %
(39.0-52.0)
MCH 31.4 H pg
(27.0-31.0)
Monocytes % 11.2 H %
(1.7-9.3)
BUN 30 H mg/dl
(9-20)
Glucose 104 H mg/dl
(70-99)
10/19/23 23:38
10/19/23 23:38
Vital Signs
Initial and Last Documented VS:
Initial Vital Signs
Temp Pulse Resp BP Pulse Ox
98.0 F 58 20 140/82 94
10/19/23 23:16 10/19/23 23:16 10/19/23 23:16 10/19/23 23:16 10/19/23 23:16
Last Documented Vital Signs
Temp Pulse Resp BP Pulse Ox
98.0 F 53 13 127/70 93
10/19/23 23:16 10/20/23 00:00 10/20/23 00:00 10/20/23 00:00 10/19/23 23:17
<Kanwal Palma MD, Resident - Last Filed: 10/20/23 00:41>
MDM/Problems Addressed
Differential Diagnosis Includes:
His altered mental status, likely due to dementia versus dehydration causing electrolyte imbalance versus hypoglycemia versus infectious cause.
MDM/Problems Addressed:
CBC, CMP�unremarkable, except for BUN�30
Glucose at 104.
His previous CT on 10/15/2023�findings with diffuse cortical atrophy with nonspecific white matter changes. No acute intracranial abnormalities.
Patient's at bedside, reports that he is back to baseline. He is able to converse well.
Patient is ambulatory. He was able to use his bedside commode.
Patient is clinically stable to be discharged home.
Patient's feels that she is able to take him home.
<Dez Magdaleno DO - Last Filed: 10/20/23 00:38>
MDM/Problems Addressed
MDM/Problems Addressed:
change in mental status, dementia,
<Dez Magdaleno DO - Last Filed: 10/20/23 00:38>
*Pulse Oximetry
Patient hypoxic: no
*Critical Care Note
Total Time (30-74mins, 75-104mins- exclusive of procedures): Not Applicable
Data Reviewed
Source: patient, spouse and ambulance crew
<Dez Magdaleno DO - Last Filed: 10/20/23 00:38>
Update Note
Update Note:
Patient up and out of bed with minimal assistance. At baseline as per . Second event [place] I suspect progressive dementia. Patient okay for discharge outpatient follow-up. is comfortable taking him home.
ED Attending Note
<Kanwal Palma MD, Resident - Last Filed: 10/20/23 00:41>
-
Portions of this chart may have been created with voice recognition software.� Occasional wrong word or��sound alike� substitutions may have occurred due to the inherent limitations of voice recognition software.
<Dez Magdaleno DO - Last Filed: 10/20/23 00:38>
ED Attending Note
Patient seen and examined by attending physician: Yes
I performed a history and physical exam of patient and discussed management with resident, I reviewed resident's note and agree with documented findings and plan of care.: Yes
ED Attending Note:
88-year-old male who presents after heard him scream and came in and then he was not moving or speaking. Of note he was recently admitted to the hospital with a similar event and observed overnight. Further history taken by EMS who reported
he had been moving everything but just would not speak with any volume. On my assessment patient just states he is cold. Exam: Patient answers questions appropriately but initially just mouth answers. He eventually did speak them out loud. No
focal motor deficits. No respiratory distress. Abdomen benign. Assessment and plan: Do not acute emergency or acute infectious process. No focal deficits to suggest stroke. Almost exact same scenario is recent admission. I do suspect
progressive dementia. Patient is up and out of bed to the bathroom. He is now actually on the commode and got there with minimal assistance. Okay
Discharge Plan
Departure
Patient Disposition: Home (Routine Discharge)
Date of Disposition: 10/20/23
Time of Disposition: 00:39
Patient with high blood pressure during this ER visit?: No
Condition: Fair
Discharge Problem:
Dementia
Instructions: Altered Mental Status (DC), Dementia (DC)
Prescriptions:
No Action
simvastatin 40 MG tablet
40 mg PO HS
omeprazole 40 MG capsule,delayed release(DR/EC)
40 mg PO BID
tamsulosin 0.4 MG capsule
0.4 mg PO HS
metoprolol succinate [Toprol XL] 50 mg Tablet Extended Release 24 Hr
50 mg PO HS
donepezil 5 mg Tablet
5 mg PO DAILY
acetaminophen 325 mg Tablet
650 mg PO Q6HPRN PRN (Reason: mild pain/fever)
potassium chloride [Klor-Con M20] 20 mEq tablet,ER particles/crystals
20 meq PO DAILY
furosemide 20 mg tablet
20 mg PO DAILY
nifedipine 60 MG tablet extended release
60 mg PO DAILY Qty: 30 0RF
cholecalciferol (vitamin D3) 50 mcg (2,000 unit) Tablet
50 mcg PO DAILY Qty: 30 1RF
clopidogrel 75 mg Tablet
75 mg PO DAILY
Referrals:
Richie Fonseca MD [Family Provider] -
Activity Restrictions/Additional Instructions:
Continue regular medications.
Advised follow-up with primary care physician and neurologist within a week.
Interventions
Interventions:
*Risk Screen - Suicide Last Done: 10/19/23 23:10
*General Assessment Last Done: 10/19/23 23:10
*Neglect/Abuse Screening Last Done: 10/19/23 23:10
ED- Fall Risk Assessment Last Done: 10/19/23 23:18
*ED COVID-19 Vaccine History Last Done: 10/19/23 23:10
ED- Pulmonary Assessment Last Done: 10/19/23 23:18
ED- Neurological Assessment Last Done: 10/19/23 23:18
ED- Cardiac Assessment Last Done: 10/19/23 23:18
Discharge Date and Time
Print Language: BAHRAINI
[2023-10-19 23:47] LABS: % Basophils 0.7 % (0-2); % Eosinophils 3.9 % (0-6); % Immature Granulocytes 0.2 % (0-0.5); % Lymphocytes 24.3 % (20.5-51.1); % Monocytes 11.2 % (1.7-9.3); % Neutrophils 59.7 % (42.2-75.2); Absolute Eosinophils 0.2 10^3/uL (0-0.7); Absolute Lymphocytes 1.4 10^3/uL (1.2-3.4); Absolute Monocytes 0.6 10^3/uL (0.1-0.6); Absolute Neutrophils 3.4 10^3/uL (1.4-6.5); Hematocrit 36.7 % (39.0-52.0); Hemoglobin 13.2 g/dL (13.0-18.0); Mean Corpuscular Hgb 31.4 pg (27.0-31.0); Mean Corpuscular Volume 87.2 fL (80.0-94.0); Mean Platelet Volume 10.4 fL (7.4-10.4); Nucleated Red Blood Cells % 0 % (-); Platelet Count 171 10^3/uL (130-400); Red Blood Cell Count 4.21 10^6/uL (4.70-6.10); Red Cell Dist. Width 13.6 % (11.5-14.5); White Blood Cell Count 5.7 10^3/uL (4.8-10.8)
[2023-10-20] VITALS: BP 127/70
[2023-10-20] LABS: ALT (SGPT) 29 U/L (0-50); AST (SGOT) 28 U/L (17-59); Albumin 4.3 g/dl (3.5-5.0); Alkaline Phosphatase 62 U/L (38-126); Blood Urea Nitrogen 30 mg/dl (9-20); Calcium 9.2 mg/dl (8.4-10.2); Carbon Dioxide 22 mmol/L (22-30); Chloride 107 mmol/L (98-107); Glucose 104 mg/dl (70-99); Potassium 3.6 mmol/L (3.5-5.1); Sodium 138 mmol/L (135-145); Total Bilirubin 0.5 mg/dl (0.2-1.3); eGFR > 60.00
[2023-10-20 00:46] LABS: Urine Albumin Negative (Neg - Trace); Urine Bilirubin Negative (Negative); Urine Character Clear (Clear); Urine Color Yellow; Urine Glucose Negative (Negative); Urine Ketone Negative (Negative); Urine Leukocyte Negative (Negative); Urine Nitrite Negative (Negative); Urine Occult Blood Negative (Negative); Urine Urobilinogen Negative (Neg - 1+)
== END 2023-10-20 01:06 | disposition home or self-care (01) ==
LOC: EMR 23:08
PROVIDERS: Student in an Organized Health Care Education/Training Program; EMERGENCY PHYSICIAN Emergency Medicine; FAMILY PHYSICIAN Internal Medicine
DX: F03.90 Unspecified dementia, unspecified severity, without behavioral disturbance, psychotic disturbance, mood disturbance, and anxiety (principal); I11.0 Hypertensive heart disease with heart failure; I50.9 Heart failure, unspecified; E78.00 Pure hypercholesterolemia, unspecified
CPT/HCPCS: 99283; 80053; 81003; 85025

== ENCOUNTER → 2023-10-24 09:16 | Outpatient (REF) | payer MEDICARE, OTHER, SELFPAY ==
[2023-10-24 12:03] LABS: Erythrocyte Sed Rate 20 mm/hour (0-20)
[2023-10-24 12:21] LABS: TSH Reflex To Free T4 2.35 uIU/ml (0.47-4.68)
[2023-10-24 12:57] LABS: Folate 7.5 ng/ml (2.76-20); Vitamin B12 225 pg/ml (239-931)
== END ==
LOC: REG 09:16
PROVIDERS: ATTENDING PHYSICIAN Specialist; FAMILY PHYSICIAN Internal Medicine
DX: F03.90 Unspecified dementia, unspecified severity, without behavioral disturbance, psychotic disturbance, mood disturbance, and anxiety (principal)
CPT/HCPCS: 36415; 82607; 82746; 84443; 85652

== ENCOUNTER 2023-12-10 15:18 | Emergency (ER) | payer MEDICARE, OTHER, SELFPAY ==
[2023-12-10 15:20] VITALS: BP 170/73
[2023-12-10 15:37] LABS: % Basophils 0.5 % (0-2); % Eosinophils 1.9 % (0-6); % Immature Granulocytes 0.4 % (0-0.5); % Lymphocytes 18.8 % (20.5-51.1); % Monocytes 11.2 % (1.7-9.3); % Neutrophils 67.2 % (42.2-75.2); Absolute Eosinophils 0.1 10^3/uL (0-0.7); Absolute Lymphocytes 1.1 10^3/uL (1.2-3.4); Absolute Monocytes 0.6 10^3/uL (0.1-0.6); Absolute Neutrophils 3.8 10^3/uL (1.4-6.5); Hematocrit 39.6 % (39.0-52.0); Mean Corp Hgb Conc. 35.4 g/dL (33.0-37.0); Mean Corpuscular Hgb 31.5 pg (27.0-31.0); Mean Corpuscular Volume 89.2 fL (80.0-94.0); Mean Platelet Volume 10.2 fL (7.4-10.4); Nucleated Red Blood Cells % 0 % (-); Platelet Count 171 10^3/uL (130-400); Red Blood Cell Count 4.44 10^6/uL (4.70-6.10); Red Cell Dist. Width 13.2 % (11.5-14.5); White Blood Cell Count 5.7 10^3/uL (4.8-10.8)
--- NOTE | 2023-12-10 15:51 | ED.GENMED ---
History of Present Illness
General
Chief Complaint: Abdominal Symptoms
Source: patient
Exam Limitations: dementia
Time Seen by Provider: 12/10/23 15:33
Nursing documentation reviewed up to this point in time: agreed with
History of Present Illness
History of Present Illness:
88-year-old male presents emergency room complaining of abdominal bloating, and difficulty urinating. He has a history of dementia and is a poor historian.
Past History
Past History
ED Past Medical History: CHF, GERD, HTN, Hypercholesterolemia and Other ( Ulcerated hiatal hernia, Prostatitis, ischemic cardiomyopathy, dementia)
ED Past Surgical History: Cardiac (Biventricular ICD), Orthopedic (Hugh knee replacements) and Other (Hiatal hernia surgery)
Patient has exhibited threatening behavior?: No
PSI?: No
Social History
Tobacco: Non-smoker
Alcohol: Occasional
Drug: None
Personal:
Living: assisted living ([facility])
Employment: Retired
Family History
Family History: Other (Noncontributory)
Review of Systems
Review of Systems
Allergies reviewed?: Yes
All Other Systems: Not applicable
Constitutional: Reports no symptoms
EENT: Reports no symptoms
Respiratory: Reports no symptoms
Cardiac: Reports no symptoms
ABD/GI: Reports abdominal pain
: Reports difficulty voiding
Musculoskeletal: Reports no symptoms
Phy Exam
Physical Exam
Physical Exam:
Physical Exam
General: no apparent distress, not acutely ill
Neck: supple. no meningeal signs. normal posterior pharynx
Heart: s1/s2 regular rate and rhythm, no murmur. equal radial
pulses.
HEENT: Pupils equal round reactive to light, EOMI
Lungs: no acute respiratory distress. clear bilaterally
Abdomen: normal bowel sounds. Diffuse abdominal tenderness no CVAT
Neuro: alert and oriented to person. no focal neurological deficits cranial nerves II through XII intact
Skin: no rash
Psychiatric: well kept. interactive and cooperative
Extremities: no edema. no calf tenderness. negative homans. good distal pulses
Course
Orders/Labs/Results
Orders:
Orders
12/10/23 15:25
Bladder Scan NOW
Follow Bladder Retention/Intermittent Cath Algorithm?: No
12/10/23 15:27
Complete Blood Count/With Diff Urgent
Comprehensive Metabolic Panel Urgent
Lipase Urgent
12/10/23 15:48
CT Abd/pelvis W Iv Cont Urgent
Comment:
Reason For Exam: diffuse abd pain, bloating
Abnormal Lab Results
12/10/23
15:27
RBC 4.44 L 10^6/uL
(4.70-6.10)
MCH 31.5 H pg
(27.0-31.0)
Absolute Lymphs (auto) 1.1 L 10^3/uL
(1.2-3.4)
Lymphocytes % 18.8 L %
(20.5-51.1)
Monocytes % 11.2 H %
(1.7-9.3)
Glucose 144 H mg/dl
(70-99)
12/10/23 15:27
12/10/23 15:27
Vital Signs
Initial and Last Documented VS:
Initial Vital Signs
Temp Pulse Resp BP Pulse Ox
97.8 F 60 20 170/73 96
12/10/23 15:20 12/10/23 15:20 12/10/23 15:20 12/10/23 15:20 12/10/23 15:20
Last Documented Vital Signs
Temp Pulse Resp BP Pulse Ox
97.8 F 65 21 137/71 94
12/10/23 15:20 12/10/23 18:30 12/10/23 18:30 12/10/23 18:00 12/10/23 18:30
MDM/Problems Addressed
Differential Diagnosis Includes:
Bowel perforation, diverticulitis
MDM/Problems Addressed:
88-year-old male with diffuse abdominal pain, CT abdomen pelvis pending. No signs of urinary retention. Ct a/p nad. Stable for d/c
*Radiology
Radiology exam reviewed: radiology read reviewed (ct a/p nad)
*Pulse Oximetry
Patient hypoxic: no
*Critical Care Note
Total Time (30-74mins, 75-104mins- exclusive of procedures): Not Applicable
Patient Management
Social determinants of health affecting care: Living situation
Escalation/DeEscalation of care consider admission/obs:
admit not indicated
ED Attending Note
-
Portions of this chart may have been created with voice recognition software.� Occasional wrong word or��sound alike� substitutions may have occurred due to the inherent limitations of voice recognition software.
Discharge Plan
Departure
Patient Disposition: Home (Routine Discharge)
Date of Disposition: 12/10/23
Time of Disposition: 19:20
Patient with high blood pressure during this ER visit?: Yes
Condition: Good
Discharge Problem:
Abdominal pain
Instructions: Abdominal Pain, BLOOD PRESSURE
Prescriptions:
No Action
simvastatin 40 MG tablet
40 mg PO HS
omeprazole 40 MG capsule,delayed release(DR/EC)
40 mg PO BID
tamsulosin 0.4 MG capsule
0.4 mg PO DAILY
metoprolol succinate [Toprol XL] 50 mg Tablet Extended Release 24 Hr
50 mg PO HS
donepezil 5 mg Tablet
10 mg PO DAILY
acetaminophen 325 mg Tablet
650 mg PO Q6HPRN PRN (Reason: mild pain/fever)
potassium chloride [Klor-Con M20] 20 mEq tablet,ER particles/crystals
20 meq PO DAILY
furosemide 20 mg tablet
20 mg PO DAILY
nifedipine 60 MG tablet extended release
60 mg PO DAILY Qty: 30 0RF
clopidogrel 75 mg Tablet
75 mg PO DAILY
cholecalciferol (vitamin D3) [Vitamin D3] 25 mcg (1,000 unit) Tablet,Chewable
50 mcg PO DAILY
Referrals:
Richie Fonseca MD [Family Provider] - Call in 1-3 days for appt
Interventions
Interventions:
*Risk Screen - Suicide Last Done: 12/10/23 15:20
*General Assessment Last Done: 12/10/23 15:20
*Neglect/Abuse Screening Last Done: 12/10/23 15:20
*ED COVID-19 Vaccine History Last Done: 12/10/23 16:00
AD-Mggqen-Zjpepqqzqw Assessment Last Done: 12/10/23 15:37
Discharge Date and Time
Print Language: AFGHAN
[2023-12-10 15:53] LABS: ALT (SGPT) 41 U/L (0-50); AST (SGOT) 36 U/L (17-59); Albumin 4.7 g/dl (3.5-5.0); Alkaline Phosphatase 53 U/L (38-126); Blood Urea Nitrogen 20 mg/dl (9-20); Calcium 9.1 mg/dl (8.4-10.2); Carbon Dioxide 24 mmol/L (22-30); Chloride 104 mmol/L (98-107); Glucose 144 mg/dl (70-99); Lipase 110 U/L (23-300); Potassium 3.8 mmol/L (3.5-5.1); Sodium 141 mmol/L (135-145); Total Bilirubin 0.5 mg/dl (0.2-1.3); Total Protein 7.4 g/dl (6.3-8.2); eGFR > 60.00
[2023-12-10 16:00] VITALS: BP 145/67
[2023-12-10 17:00] VITALS: BP 142/70
[2023-12-10 18:00] VITALS: BP 137/71
== END 2023-12-10 20:47 | disposition home or self-care (01) ==
LOC: EMR 15:18
PROVIDERS: EMERGENCY PHYSICIAN Emergency Medicine; FAMILY PHYSICIAN Internal Medicine
DX: R10.9 Unspecified abdominal pain (principal); R14.0 Abdominal distension (gaseous); K21.9 Gastro-esophageal reflux disease without esophagitis; I11.0 Hypertensive heart disease with heart failure; I50.9 Heart failure, unspecified; E78.00 Pure hypercholesterolemia, unspecified; I25.5 Ischemic cardiomyopathy; Z96.653 Presence of artificial knee joint, bilateral
CPT/HCPCS: 99284; 74177; 80053; 83690; 85025; Q9967

== ENCOUNTER → 2023-12-18 09:11 | Outpatient (REF) | payer MEDICARE, OTHER, SELFPAY ==
[2023-12-18 12:40] LABS: Vitamin B12 428 pg/ml (239-931)
[2023-12-20 09:38] LABS: Homocysteine 15 umol/L (0-15)
[2023-12-21 06:23] LABS: Methylmalonic Acid 0.14 umol/L (0.00-0.40)
== END ==
LOC: REG 09:11
PROVIDERS: ATTENDING PHYSICIAN Specialist; FAMILY PHYSICIAN Internal Medicine
DX: R56.9 Unspecified convulsions (principal); F03.90 Unspecified dementia, unspecified severity, without behavioral disturbance, psychotic disturbance, mood disturbance, and anxiety; D51.9 Vitamin B12 deficiency anemia, unspecified
CPT/HCPCS: 36415; 82607; 83090; 83921

== ENCOUNTER 2023-12-24 22:19 | Observation (INO) | payer MEDICARE, OTHER, SELFPAY ==
[2023-12-24] VITALS (8 sets, daily range): BP systolic 115–140; BP diastolic 65–82; BMI 31.2; BMI 29.9
[2023-12-24 15:55] LABS: Urine Albumin Negative (Neg - Trace); Urine Bilirubin Negative (Negative); Urine Character Clear (Clear); Urine Color Yellow; Urine Glucose Negative (Negative); Urine Ketone Negative (Negative); Urine Leukocyte Trace (Negative); Urine Nitrite Negative (Negative); Urine Occult Blood Negative (Negative); Urine Specific Gravity 1.015 (<1.030); Urine Urobilinogen Negative (Neg - 1+)
[2023-12-24 15:57] LABS: % Basophils 0.5 % (0-2); % Eosinophils 2.4 % (0-6); % Immature Granulocytes 0.4 % (0-0.5); % Lymphocytes 15.5 % (20.5-51.1); % Monocytes 9.8 % (1.7-9.3); % Neutrophils 71.4 % (42.2-75.2); Absolute Eosinophils 0.2 10^3/uL (0-0.7); Absolute Lymphocytes 1.2 10^3/uL (1.2-3.4); Absolute Monocytes 0.8 10^3/uL (0.1-0.6); Absolute Neutrophils 5.4 10^3/uL (1.4-6.5); Hematocrit 40.1 % (39.0-52.0); Hemoglobin 14.2 g/dL (13.0-18.0); Mean Corp Hgb Conc. 35.4 g/dL (33.0-37.0); Mean Corpuscular Hgb 32.2 pg (27.0-31.0); Mean Corpuscular Volume 90.9 fL (80.0-94.0); Mean Platelet Volume 10.2 fL (7.4-10.4); Nucleated Red Blood Cells % 0 % (-); Platelet Count 179 10^3/uL (130-400); Red Blood Cell Count 4.41 10^6/uL (4.70-6.10); Red Cell Dist. Width 13.2 % (11.5-14.5); White Blood Cell Count 7.6 10^3/uL (4.8-10.8)
[2023-12-24 16:11] LABS: ALT (SGPT) 28 U/L (0-50); AST (SGOT) 30 U/L (17-59); Albumin 4.7 g/dl (3.5-5.0); Alkaline Phosphatase 66 U/L (38-126); Blood Urea Nitrogen 25 mg/dl (9-20); Calcium 9.6 mg/dl (8.4-10.2); Carbon Dioxide 24 mmol/L (22-30); Chloride 105 mmol/L (98-107); Estimated Creatinine Clearance 56 ml/min; Glucose 114 mg/dl (70-99); Potassium 3.5 mmol/L (3.5-5.1); Sodium 141 mmol/L (135-145); Total Bilirubin 0.7 mg/dl (0.2-1.3); Total Protein 7.5 g/dl (6.3-8.2); eGFR > 60.00
[2023-12-24 16:18] LABS: Urine Bacteria Few (Negative); Urine Red Blood Cell 0-2 /HPF (0-2); Urine White Cell 0-2 /HPF (0-5)
--- NOTE | 2023-12-24 17:17 | ED.GENMED ---
History of Present Illness
General
Chief Complaint: Weakness
Source: patient and spouse
Exam Limitations: none
Time Seen by Provider: 12/24/23 16:28
Nursing documentation reviewed up to this point in time: agreed with
History of Present Illness
History of Present Illness:
88-year-old male with a past medical history of dementia, hypertension, hyperlipidemia, CHF, pacemaker, GERD, BPH who presents to the emergency room for evaluation of generalized weakness; patient lives at [facility] with his . He
is limited as a historian due to his dementia but his is at bedside and provides collateral history. She reports that 'he has good days and bad days' but that this morning he woke up and was more lethargic than he typically would be even on a
bad day. She says that he was requesting to come to the hospital which is very unusual for him but she could not elicit why he he was concerned or what was wrong. She has not noticed objectively any fever, coughing, vomiting, diarrhea or any other
issues. When I asked the patient how he is feeling he says 'lousy' but when I specifically asked him what is wrong he cannot really tell me. He denies any headache, chest pain, shortness of breath, abdominal pain, nausea, pain in his extremities,
back pain or any other complaints when I do a head to toe review of systems.
Past History
Past History
ED Past Medical History: CHF, GERD, HTN, Hypercholesterolemia and Other ( Ulcerated hiatal hernia, Prostatitis, ischemic cardiomyopathy, dementia)
ED Past Surgical History: Cardiac (Biventricular ICD), Orthopedic (Hugh knee replacements) and Other (Hiatal hernia surgery)
Patient has exhibited threatening behavior?: No
PSI?: No
Social History
Tobacco: Non-smoker
Alcohol: Occasional
Drug: None
Personal:
Living: assisted living ([facility])
Employment: Retired
Family History
Family History: Other (Noncontributory)
Review of Systems
Review of Systems
Unable to obtain full review of systems at this time due to: dementia
All Other Systems: ROS reviewed and negative except as documented in HPI and ROS (Review of systems limited by dementia)
Respiratory: Denies trouble breathing
Cardiac: Denies chest pain
ABD/GI: Denies abdominal pain or nausea
Musculoskeletal: Denies joint pain, neck pain or back pain
Neurological: Denies dizzy or headache
Phy Exam
Physical Exam
Physical Exam:
General: Awake, alert, oriented x 2, not in acute distress
Head: Normocephalic, atraumatic
Eyes: Conjunctiva normal, EOMI, pupils equal round and reactive to light bilaterally
Throat: Airway intact, handling secretions
Neck: Trachea midline, supple without meningismus
Lungs: Faint rales at left lung base; hypoxia to 89% requiring 2 L nasal cannula, normal respiratory, normal work of breathing
Heart: Regular rate and rhythm, no murmurs, gallops, or rubs
Abd: Soft, non distended, nontender
Neuro: Cranial nerves grossly intact, speech fluid, no gross motor or sensory deficits
Extremities: Bilateral lower extremity edema, extremities are warm and well-perfused
Scores
Heart Failure Risk
Heart Failure Risk Score: Not Applicable
Heart Score for Chest Pain Patients
STEMI patient?: Not applicable
Withdrawal Assessment of Alcohol
Withdrawal Assessment Completed?: Not applicable
Course
Orders/Labs/Results
Orders:
Orders
12/24/23 15:44
Complete Blood Count/With Diff Urgent
Comprehensive Metabolic Panel Urgent
NT-proBNP Urgent
Comment: ADD ON
Urinalysis Reflex To Culture Urgent
Date Specimen was Collected: 12/24/23
Time Specimen was Collected: 15:40
Urine Microscopic Reflex Cult Urgent
12/24/23 16:31
CR Chest Portable - 1 View Urgent
Comment:
Reason For Exam: weakness, eval for pna
Reason Study Needs to be Portable: Unable to Transport
12/24/23 16:41
COVID-19 Antigen Urgent
Source: Nasal Swab
Influenza A+B Rapid Molecular Urgent
LEATHA Source: Nasal Swab
Specimen Description:
12/24/23 17:18
Interrogate Pacemaker- Treatment ONCE
12/24/23 17:24
Add On- LAB Urgent
Tests Added?: pro-BNP
Electrocardiogram (*1) Urgent
Reason for Study: Fatigue / Weakness
EKG- Treatment ONCE
12/24/23 21:27
Procalcitonin Urgent
PCT Algorithmm Indication: Respiratory
12/24/23 21:35
Furosemide [Lasix] 40 mg IV NOW STA
Abnormal Lab Results
12/24/23
15:44
RBC 4.41 L 10^6/uL
(4.70-6.10)
MCH 32.2 H pg
(27.0-31.0)
Absolute Monos (auto) 0.8 H 10^3/uL
(0.1-0.6)
Lymphocytes % 15.5 L %
(20.5-51.1)
Monocytes % 9.8 H %
(1.7-9.3)
BUN 25 H mg/dl
(9-20)
Glucose 114 H mg/dl
(70-99)
Leukocyte Esterase Rfl Trace A
(Negative)
Urine Bacteria (Reflex) Few A
(Negative)
12/24/23 15:44
12/24/23 15:44
Vital Signs
Initial and Last Documented VS:
Initial Vital Signs
Temp Pulse Resp BP Pulse Ox
36.1 C 63 18 139/67 94
12/24/23 15:36 12/24/23 15:36 12/24/23 15:36 12/24/23 15:36 12/24/23 15:36
Last Documented Vital Signs
Temp Pulse Resp BP Pulse Ox
36.1 C 61 17 137/73 93
12/24/23 15:36 12/24/23 17:00 12/24/23 17:00 12/24/23 17:00 12/24/23 17:00
MDM/Problems Addressed
Differential Diagnosis Includes:
Differential diagnosis for generalized weakness is wide and includes but not limited to: Infection such as UTI, pneumonia, viral syndrome; anemia; electrolyte derangement/dehydration; dysrhythmia; CHF; polypharmacy; deconditioning; hypoactive
delirium in the setting of dementia
MDM/Problems Addressed:
88-year-old male presents for evaluation of malaise and lethargy that seems to have started this morning. Vitals and exam as above. Will plan to place an IV check labs including a CBC and a CMP. Check chest x-ray. Swab for COVID and flu. Check
urinalysis. Check an EKG and interrogate device. Will send a proBNP. Will monitor closely reassess after the above.
Labs reviewed: CBC shows no clinically significant abnormalities, CMP with acceptable range. proBNP mildly elevated at 504. Urinalysis negative for infection. COVID and flu negative. Chest x-ray shows no clear acute pathology but on lung
auscultation did have some faint rales at the lung base�He only has trace edema around the ankles but I wonder if his mild hypoxia and lethargy is related to mild CHF. He has no fever or leukocytosis to suggest occult pneumonia. Will plan to treat
with IV Lasix, will admit for observation and treatment for acute hypoxia suspect related to mild CHF. Discussed with hospitalist for admission.
Chronic conditions affecting care:
CHF, dementia
*Radiology
Radiology exam reviewed: preliminary read by ED provider and radiology read reviewed
*Pulse Oximetry
Patient hypoxic: yes
*Critical Care Note
Total Time (30-74mins, 75-104mins- exclusive of procedures): Not Applicable
Data Reviewed
Source: patient, records, spouse and ambulance crew
Patient Management
Discussion with other providers: Hospitalist (Discussed with hospitalist)
Escalation/DeEscalation of care consider admission/obs:
Admission indicated
ED Attending Note
-
Portions of this chart may have been created with voice recognition software.� Occasional wrong word or��sound alike� substitutions may have occurred due to the inherent limitations of voice recognition software.
Discharge Plan
Departure
Patient Disposition: Admit
Date of Disposition: 12/24/23
Time of Disposition: 21:31
Admit to doctor: Emil
Presentation/result/management discussed w/ accepting MD/DO: Hospitalist
Discharge Problem:
CHF exacerbation, Hypoxia
Prescriptions:
No Action
simvastatin 40 MG tablet
40 mg PO HS
omeprazole 40 MG capsule,delayed release(DR/EC)
40 mg PO BID
tamsulosin 0.4 MG capsule
0.4 mg PO DAILY
metoprolol succinate [Toprol XL] 50 mg Tablet Extended Release 24 Hr
50 mg PO HS
acetaminophen 325 mg Tablet
650 mg PO Q6HPRN PRN (Reason: mild pain/fever)
potassium chloride [Klor-Con M20] 20 mEq tablet,ER particles/crystals
20 meq PO DAILY
furosemide 20 mg tablet
20 mg PO DAILY
nifedipine 60 MG tablet extended release
60 mg PO DAILY Qty: 30 0RF
clopidogrel 75 mg Tablet
75 mg PO DAILY
cholecalciferol (vitamin D3) [Vitamin D3] 25 mcg (1,000 unit) Tablet,Chewable
50 mcg PO DAILY
donepezil 10 mg Tablet
10 mg PO DAILY
Referrals:
Richie Fonseca MD [Family Provider] -
Interventions
Interventions:
*Risk Screen - Suicide Last Done: 12/24/23 15:36
*General Assessment Last Done: 12/24/23 15:36
*Neglect/Abuse Screening Last Done: 12/24/23 15:36
ED- Cardiac Assessment Last Done: 12/24/23 15:49
ED- Neurological Assessment Last Done: 12/24/23 15:49
ED- Pulmonary Assessment Last Done: 12/24/23 15:50
Discharge Date and Time
Print Language: NORTHERN IRISH
[2023-12-24 17:26] LABS: COVID-19 Antigen Negative (Negative)
[2023-12-24 20:10] LABS: NT-proBNP 504 pg/ml
--- NOTE | 2023-12-24 21:53 | HPS.HSE ---
Family Physician
-
Family Physician: Richie Fonseca
Chief Complaint
-
Lethargy / Fatigue
History of Present Illness
Patient is an 88y M with PMH significant for senile dementia and hypertension who presents to ED for evaluation of lethargy / fatigue. noted that patient was more lethargic than usual this AM. He complained of feeling 'lousy' - though
without any focal / specific complaints - and requested to be brought to the hospital apparently. Patient has had multiple prior admissions for similar circumstances. Evaluations have been unremarkable and his waxing - waning mental state has been
attributed to progressive dementia.
stated to ED staff that he has 'good days and bad days' but that today he was especially lethargic / fatigued.
No recently noted symptoms or complaints of cough, dyspnea, N/V/D, etc.
No recent med changes, etc.
Medical History
Past Medical History
Past Medical History: Reports Other
Additional Past Medical History:
Hypertension
Dilated Cardiomyopathy
Senile Dementia
GERD / PUD
BPH
Dyslipidemia
Past Surgical History: Reports Other
Additional Past Surgical History:
AICD Placement
Ankle Surgery
Social History
Unable to obtain full social history at this time due to: Dementia
Family History
Family History: Unable to Obtain
Allergies / Home Medications
Allergies reflects when Allergies were last updated in [facility].
Home Medications with original date entered in [facility]
Allergy/Medication List:
Allergies
Allergy/AdvReac Type Severity Reaction Status Date / Time
No Known Allergies Allergy Verified 12/10/23 15:19
Home Medications
simvastatin 40 mg tablet 40 mg PO HS High cholesterol 03/07/10
omeprazole 40 mg capsule,delayed release 40 mg PO BID Gastrointestinal issue 04/07/16
tamsulosin 0.4 mg capsule 0.4 mg PO DAILY Urinary issue 05/26/21
metoprolol succinate 50 mg tablet,extended release 24 hr (Toprol XL) 50 mg PO HS Blood Pressure 06/16/22
acetaminophen 325 mg tablet 650 mg PO Q6HPRN PRN mild pain/fever 10/15/23
furosemide 20 mg tablet 20 mg PO DAILY Fluid Retention/Swelling 10/15/23
potassium chloride 20 mEq tablet,extended release(part/cryst) (Klor-Con M) 20 meq PO DAILY Electrolyte Repletion 10/15/23
nifedipine 60 mg tablet,extended release 60 mg PO DAILY Blood pressure #30 tabs 10/16/23
clopidogrel 75 mg tablet 75 mg PO DAILY 10/19/23
cholecalciferol (vitamin D3) 25 mcg (1,000 unit) chewable tablet (Vitamin D3) 50 mcg PO DAILY 12/10/23
donepezil 10 mg tablet 10 mg PO DAILY 12/24/23
Review of Systems
-
Unable to obtain full review of systems at this time due to: Dementia
Respiratory: Denies Trouble Breathing
Cardiac: Denies Chest Pain
Abdomen/GI: Denies Abdominal Pain or Anorexia
Neurological: Denies Headache
Physical Exam
Vital Signs
Vital Signs
Temp Pulse Resp BP Pulse Ox
97 F 61 17 137/73 93
12/24/23 15:36 12/24/23 17:00 12/24/23 17:00 12/24/23 17:00 12/24/23 17:00
Physical Exam
General: Other (88y M in no acute distress.)
HEENT: Moist mucous membranes and PERRLA
Respiratory: Other (Few bibasilar rales. Diminished effort.)
Cardiac: S1/S2 and Regular Rhythm; No Murmur
GI: Soft, Non Tender, Non Distended and Normal Bowel Sounds
Musculoskeletal: No Clubbing, No Cyanosis and No Edema
Neuro: Awake, Alert and Nonfocal/grossly intact; No Oriented
Laboratory Results
-
10/21/24 15:44
12/24/23 15:44
Laboratory Results
Total Bilirubin 0.7 mg/dl (0.2-1.3) 12/24/23 15:44
AST 30 U/L (17-59) 12/24/23 15:44
ALT 28 U/L (0-50) 12/24/23 15:44
Alkaline Phosphatase 66 U/L (38-126) 12/24/23 15:44
Impression/Plan
-
A/P: Patient is an 88y M with PMH significant for dementia and hypertension who presents to ED for evaluation of change from baseline mental status.
Change in Mental Status
Senile Dementia
- Observe overnight for further evaluation and treatment.
- Work-up thus far has been wholly unremarkable.
- Multiple prior visits for similar circumstances.
- Suspect progression of significant dementia as underlying issue here.
- Consider Neurology evaluation for any additional recommendations / suggestions.
Mild / Intermittent Hypoxemia
- SpO2 reportedly into the 80s on room air at times - typically during sleep.
- Patient denies cough or dyspnea.
- Had PFTs done in July with mild restrictive disease and slightly decreased DLCO2.
- Continue O2 if needed.
- Minimal basilar rales are likely a result of atelectasis.
- No evidence of volume overload (see below).
- Check ABG for evidence of hypercapnia - which may contribute to his lethargy / fatigue.
Dilated Cardiomyopathy
- Stable. No evidence of volume overload as noted above. BNP is unremarkable.
- Has AICD in place.
- Last Echo (01/2023) with recovered EF (55-60%).
- Continue current meds / Lasix dosing unchanged.
Benign Hypertension
- Stable. Continue current meds with holding parameters.
- Adjust as needed to avoid hypotension and / or bradycardia.
GERD / History of PUD
- Stable. Continue PPI.
BPH
- Stable. Continue tamsulosin.
DVT Prophylaxis: SCDs
Code Status: DNR
[2023-12-24] MEDS: LASIX 40 MG IV (22:03)
[2023-12-24 22:42] LABS: B.E. 3.1 mmol/L; O2 Saturation % 95.8 % (94-98); PCO2 38 mmHg (35-48); PO2 73 mmHg (83-108); pH 7.46 (7.35-7.45)
[2023-12-24 22:48] LABS: Procalcitonin < 0.05 ng/ml (0.0-0.25)
[2023-12-24] MEDS: LIPITOR 20 MG PO (23:27)
[2023-12-24] MEDS: TOPROL XL 50 MG PO (23:28)
[2023-12-25] VITALS (7 sets, daily range): BP systolic 133–162; BP diastolic 66–86; PULSE 61; O2SAT 92; BMI 29.8
[2023-12-25 07:37] LABS: Hematocrit 40.9 % (39.0-52.0); Hemoglobin 14.2 g/dL (13.0-18.0); Mean Corp Hgb Conc. 34.7 g/dL (33.0-37.0); Mean Corpuscular Volume 92.1 fL (80.0-94.0); Mean Platelet Volume 10.7 fL (7.4-10.4); Platelet Count 199 10^3/uL (130-400); Red Blood Cell Count 4.44 10^6/uL (4.70-6.10); Red Cell Dist. Width 13.3 % (11.5-14.5); White Blood Cell Count 6.7 10^3/uL (4.8-10.8)
[2023-12-25 08:06] LABS: Blood Urea Nitrogen 23 mg/dl (9-20); Calcium 9.2 mg/dl (8.4-10.2); Carbon Dioxide 26 mmol/L (22-30); Chloride 101 mmol/L (98-107); Estimated Creatinine Clearance 61 ml/min; Glucose 105 mg/dl (70-99); Magnesium 2.1 mg/dl (1.6-2.3); Potassium 3.4 mmol/L (3.5-5.1); Sodium 141 mmol/L (135-145); eGFR > 60.00
[2023-12-25] MEDS: LASIX 20 MG PO (08:19)
[2023-12-25] MEDS: FLOMAX 0.4 MG PO (08:19)
[2023-12-25] MEDS: KCL 20 MEQ PO (08:19)
[2023-12-25] MEDS: VITAMIN D3 (cholecalciferol) 50 MCG PO (08:19)
[2023-12-25] MEDS: PROCARDIA XL (EXTENDED RELEASE) 60 MG PO (08:19)
[2023-12-25] MEDS: PROTONIX 40 MG PO ×2 (08:19→20:23)
[2023-12-25] MEDS: PLAVIX 75 MG PO (08:19)
[2023-12-25] MEDS: ARICEPT 10 MG PO (08:19)
--- NOTE | 2023-12-25 09:30 | VATNOTE ---
Attempted to restart pt's prehospital IV during routine rounds. Pt refused to let this RN put in a new IV and take out the one started by EMS. Pt educated on the infection risk associated with leaving pre-hospital IV sites for longer than needed. Pt
continues to refuse restart.
--- NOTE | 2023-12-25 10:55 | CM ---
Addendum entered by Erna Miles 12/25/23 15:27:
Nocturnal pulse ox ordered.
Please update nurse from [facility] tomorrow [phone] (Kianna or Ronit)
Addendum entered by Erna Miles 12/25/23 11:54:
[facility]
Report# [phone]
fax# [phone]
Original Note:
Patient seen bedside.
Patient lives with spouse in personal care at [facility].
Spoke with Kianna from [facility] and they have discussed with spouse, skilled rehab, memory care, LTC, and moving to a lower level i n the building. has been resistant.
Patient ambulates with a RW.
Patient has had [facility] in the past.
Spoke with spouse via phone.
S[facility] form reviewed, copy left in room.
Per spouse she will transport home.
Pharmacy: [facility] [place] ([facility]
PCP: Dr Emmanuel Fonseca.
Plan: home with probable VN, await PT/OT evals.
--- NOTE | 2023-12-25 12:35 | VNURNOTE ---
[facility] liaison reached out to spouse at home # and pt's hospital phone #- no answer.
--- NOTE | 2023-12-25 13:47 | W.PN.HOSP.TC ---
Today's Communication/Plan
-
ct head
nocturnal o2
k repletion
dispo planning
Assessment / Plan
Assessment / Plan
Physical Exam
General: Other (88y M in no acute distress.)
HEENT: Moist mucous membranes and PERRLA
Respiratory: CTAB
Cardiac: S1/S2 and Regular Rhythm; No Murmur
GI: Soft, Non Tender, Non Distended and Normal Bowel Sounds
Musculoskeletal: No Clubbing, No Cyanosis and No Edema
Neuro: Awake, Alert and Nonfocal/grossly intact; No Oriented
A/P: Patient is an 88y M with PMH significant for dementia and hypertension who presents to ED for evaluation of change from baseline mental status.
Change in Mental Status
Senile Dementia
- Multiple prior visits for similar circumstances.
- Suspect progression of significant dementia as underlying issue here.
- previous w/u unremarkable; Patient AAOx2; I do not suspect infectious/metabolic issues at this time
-No focal motor or sensory loss to indicate any type of stroke
-CT head
Mild / Intermittent Hypoxemia
- SpO2 reportedly into the 80s on room air at times - typically during sleep.
- Patient denies cough or dyspnea.
- Had PFTs done in July with mild restrictive disease and slightly decreased DLCO2.
- No evidence of volume overload
- ABG unremarkable
-Can perform nocturnal o2 tonight
#Hypokalemia
-monitor and replete
Dilated Cardiomyopathy
- Stable. No evidence of volume overload as noted above. BNP is unremarkable.
- Has AICD in place.
- Last Echo (01/2023) with recovered EF (55-60%).
- Continue current meds / Lasix dosing unchanged.
Benign Hypertension
- Stable. Continue current meds with holding parameters.
- Adjust as needed to avoid hypotension and / or bradycardia.
GERD / History of PUD
- Stable. Continue PPI.
BPH
- Stable. Continue tamsulosin.
DVT Prophylaxis: HSQ
Code Status: DNR
Anticipated Discharge: Within 24 hours
Subjective/Interval History
-
Date of Service: December 25, 2023
no acute events
Objective Data
-
Labs:
Laboratory Results
12/25/23
06:07
WBC 6.7
Hgb 14.2
Hct 40.9
Plt Count 199
Sodium 141
Potassium 3.4 L
Chloride 101
Carbon Dioxide 26
BUN 23 H
Creatinine 0.9
Glucose 105 H
Calcium 9.2
Vital Signs:
Vital Signs
Temp Pulse Resp BP Pulse Ox
97.4 F 54 18 133/68 93
12/25/23 10:51 12/25/23 10:51 12/25/23 10:51 12/25/23 10:51 12/25/23 10:51
Review of Systems
-
History Source: Patient
All other systems: Not reviewed unless documented
Physical Exam
-
General: Well Developed, Well Nourished and No Apparent Distress
HEENT: Normocephalic and Atraumatic
Respiratory: Clear to Auscultation; Negative Wheezes or Rhonchi
Cardiac: Regular Rhythm and S1/S2; Negative Murmur
GI: Soft, Nontender, Nondistended and Normal Bowel Sounds
Musculoskeletal: No Clubbing, No Cyanosis and No Edema
Neuro: Awake and Alert
Psych: Calm
Data Reviewed
-
Diagnostic Radiology: Image personally visualized and interpreted and Report Reviewed by me
Labs: Labs Reviewed by me
[2023-12-25] MEDS: KCL ELIXIR 40 MEQ PO (14:10)
[2023-12-25] MEDS: HEPARIN 5000 UNITS SC (15:36)
[2023-12-25] MEDS: TOPROL XL 50 MG PO (20:22)
[2023-12-25] MEDS: LIPITOR 20 MG PO (20:23)
--- NOTE | 2023-12-25 23:05 | RESPNOTE ---
Nocturnal pulse oximetry testing began at 2302. Initial SpO2 was 93% on room air.
[2023-12-25] MEDS: HEPARIN SC (23:37)
[2023-12-26 03:17] VITALS: BP 147/66
[2023-12-26 06:00] VITALS: BMI 29.7
[2023-12-26 07:25] VITALS: BP 164/59
[2023-12-26 09:22] LABS: Hemoglobin 14.9 g/dL (13.0-18.0); Mean Corp Hgb Conc. 34.7 g/dL (33.0-37.0); Mean Corpuscular Volume 89.6 fL (80.0-94.0); Mean Platelet Volume 10.3 fL (7.4-10.4); Platelet Count 219 10^3/uL (130-400); Red Cell Dist. Width 13.1 % (11.5-14.5); White Blood Cell Count 7.7 10^3/uL (4.8-10.8)
[2023-12-26] MEDS: PROCARDIA XL (EXTENDED RELEASE) 60 MG PO (09:42)
[2023-12-26] MEDS: FLOMAX 0.4 MG PO (09:43)
[2023-12-26] MEDS: ARICEPT 10 MG PO (09:44)
[2023-12-26] MEDS: PLAVIX 75 MG PO (09:44)
[2023-12-26] MEDS: VITAMIN D3 (cholecalciferol) 50 MCG PO (09:44)
[2023-12-26] MEDS: LASIX 20 MG PO (09:44)
[2023-12-26] MEDS: HEPARIN 5000 UNITS SC (09:45)
[2023-12-26] MEDS: KCL 20 MEQ PO (09:45)
[2023-12-26] MEDS: PROTONIX 40 MG PO (09:45)
[2023-12-26 11:00] VITALS: BP 158/82
--- NOTE | 2023-12-26 11:09 | W.PN.UPDATE ---
Update Note
Progress Note Update
Patient is in need of oxygen at 2 liters/minute via nasal cannula continuously due to pulse oximetry of 88% on room air at rest, especially while sleeping. Oxygen will help to improve hypoxemia. Patient is mobile within the home. DuoNeb therapy has
been tried and is ineffective in treating hypoxemia related symptoms. Oxygen is needed to improve symptoms.
--- NOTE | 2023-12-26 11:19 | W.PN.HOSP.TC ---
Addendum entered and electronically signed by Iglesia Person MD 12/26/23 18:01:
[id number]
Original Note:
Today's Communication/Plan
-
nocturnal o2
bmp outpatient
f/u pcp outpatient
Assessment / Plan
Assessment / Plan
Physical Exam
General: Other (88y M in no acute distress.)
HEENT: Moist mucous membranes and PERRLA
Respiratory: CTAB
Cardiac: S1/S2 and Regular Rhythm; No Murmur
GI: Soft, Non Tender, Non Distended and Normal Bowel Sounds
Musculoskeletal: No Clubbing, No Cyanosis and No Edema
Neuro: Awake, Alert and Nonfocal/grossly intact; No Oriented
A/P: Patient is an 88y M with PMH significant for dementia and hypertension who presents to ED for evaluation of change from baseline mental status.
Change in Mental Status
Senile Dementia
- Multiple prior visits for similar circumstances.
- Suspect progression of significant dementia as underlying issue here.
- previous w/u unremarkable; Patient AAOx2; I do not suspect infectious/metabolic issues at this time
-No focal motor or sensory loss to indicate any type of stroke
-CT head unremarkable
-f/u pcp outpatient
Mild / Intermittent Hypoxemia
- SpO2 reportedly into the 80s on room air at times - typically during sleep.
- Patient denies cough or dyspnea.
- Had PFTs done in July with mild restrictive disease and slightly decreased DLCO2.
- No evidence of volume overload
- ABG unremarkable
-Can perform nocturnal o2 tonight: requires 2L NC at night
-F/u Sleep study if deemed necessary according to outpatient PCP
#Hypokalemia
-monitor and replete
Dilated Cardiomyopathy
- Stable. No evidence of volume overload as noted above. BNP is unremarkable.
- Has AICD in place.
- Last Echo (01/2023) with recovered EF (55-60%).
- Continue current meds / Lasix dosing unchanged.
Benign Hypertension
- Stable. Continue current meds with holding parameters.
- Adjust as needed to avoid hypotension and / or bradycardia.
GERD / History of PUD
- Stable. Continue PPI.
BPH
- Stable. Continue tamsulosin.
DVT Prophylaxis: HSQ
Code Status: DNR
More than 30 minutes spent in discharge including
Final examination of the patient
Summarizing hospital stay
Instructions for continuing care to all relevant caregivers
Preparation of discharge records, prescriptions, and referral forms
Total time spent (35 in minutes):
Anticipated Discharge: Today
Subjective/Interval History
-
Date of Service: December 26, 2023
No acute events overnight, sitting in chair resting comfortably
Objective Data
-
Labs:
Laboratory Results
12/26/23
09:05
WBC 7.7
Hgb 14.9
Hct 43.0
Plt Count 219
Sodium Pending
Potassium Pending
Chloride Pending
Carbon Dioxide Pending
BUN Pending
Creatinine Pending
Glucose Pending
Calcium Pending
Vital Signs:
Vital Signs
Temp Pulse Resp BP Pulse Ox
97.7 F 74 17 164/59 96
12/26/23 07:25 12/26/23 09:42 12/26/23 07:25 12/26/23 09:42 12/26/23 08:00
I&O
12/25/23 12/26/23 12/27/23
06:59 06:59 06:59
Intake Total 540 / 540
Balance 540 / 540
Review of Systems
-
History Source: Patient
All other systems: Not reviewed unless documented
Data Reviewed
-
Diagnostic Radiology: Image personally visualized and interpreted and Report Reviewed by me
Labs: Labs Reviewed by me
--- NOTE | 2023-12-26 11:24 | W.DS.TRANS ---
DC Summary - Medical Superintendent
-
Discharge Instructions:
Sleep Apnea Risk High
Discharge Diagnosis/Procedures Senile Dementia
Mild / Intermittent Hypoxemia
Diet Low Cholesterol,Low Fat,2 Gram Sodium
Activity As tolerated
Blood Work cbc, bmp in 3-5 days
Instructions:
Stand-Alone Forms:
Changes to Home Medications: No
Discharge Medications:
DC Medications w/original date entered in [facility]
simvastatin 40 mg tablet 40 mg PO HS High cholesterol 03/07/10
omeprazole 40 mg capsule,delayed release 40 mg PO BID Gastrointestinal issue 04/07/16
tamsulosin 0.4 mg capsule 0.4 mg PO DAILY Urinary issue 05/26/21
metoprolol succinate 50 mg tablet,extended release 24 hr (Toprol XL) 50 mg PO HS Blood Pressure 06/16/22
acetaminophen 325 mg tablet 650 mg PO Q6HPRN PRN mild pain/fever 10/15/23
furosemide 20 mg tablet 20 mg PO DAILY Fluid Retention/Swelling 10/15/23
potassium chloride 20 mEq tablet,extended release(part/cryst) (Klor-Con M) 20 meq PO DAILY Electrolyte Repletion 10/15/23
nifedipine 60 mg tablet,extended release 60 mg PO DAILY Blood pressure #30 tabs 10/16/23
clopidogrel 75 mg tablet 75 mg PO DAILY Blood Clot Prevention/Tx 10/19/23
cholecalciferol (vitamin D3) 25 mcg (1,000 unit) chewable tablet (Vitamin D3) 50 mcg PO DAILY Supplement 12/10/23
donepezil 10 mg tablet 10 mg PO DAILY Alzheimer's 12/24/23
Home Medication Changes
na
Pending Results: No
[2023-12-26 11:29] LABS: Blood Urea Nitrogen 22 mg/dl (9-20); Calcium 9.7 mg/dl (8.4-10.2); Carbon Dioxide 22 mmol/L (22-30); Chloride 98 mmol/L (98-107); Estimated Creatinine Clearance 61 ml/min; Glucose 126 mg/dl (70-99); Potassium 4.2 mmol/L (3.5-5.1); Sodium 138 mmol/L (135-145); eGFR > 60.00
--- NOTE | 2023-12-26 11:36 | CM ---
Addendum entered by Erna Miles 12/26/23 13:17:
correction to report # [phone].
Addendum entered by Erna Miles 12/26/23 11:49:
[facility]
Report# [phone]
fax# [phone]
Original Note:
Spoke with patients spouse and she is agreeable to oxygen at HS.
Options discussed.
Nocturnal pulse ox completed. Patient qualifies for home oxygen.
[employer] will deliver oxygen.
Patient for tentative d/c home today with [facility] and home oxygen.
Clinicals faxed to [facility].
PT/OT recommending home care.
Spouse will transport.
Plan: home to [facility] with [facility] and home HS oxygen.
--- NOTE | 2023-12-26 11:39 | VNURNOTE ---
Patient qualified for noct . Info faxed to Mary at [facility]. Spouse made aware by
== END 2023-12-26 14:00 | disposition home health service (06) ==
LOC: 4 WEST ACU 22:19
PROVIDERS: Student in an Organized Health Care Education/Training Program; ADMITTING PHYSICIAN Hospitalist; ATTENDING PHYSICIAN Internal Medicine; EMERGENCY PHYSICIAN Emergency Medicine; FAMILY PHYSICIAN Internal Medicine
DX: G30.1 Alzheimer's disease with late onset (principal); F02.80 Dementia in other diseases classified elsewhere, unspecified severity, without behavioral disturbance, psychotic disturbance, mood disturbance, and anxiety; R09.02 Hypoxemia; R53.1 Weakness; I11.0 Hypertensive heart disease with heart failure; I50.9 Heart failure, unspecified; N40.0 Benign prostatic hyperplasia without lower urinary tract symptoms; I42.0 Dilated cardiomyopathy; R41.82 Altered mental status, unspecified; R94.31 Abnormal electrocardiogram [ECG] [EKG]; E87.6 Hypokalemia; K21.9 Gastro-esophageal reflux disease without esophagitis; E78.5 Hyperlipidemia, unspecified; K44.9 Diaphragmatic hernia without obstruction or gangrene; I25.5 Ischemic cardiomyopathy; E78.00 Pure hypercholesterolemia, unspecified; Z79.02 Long term (current) use of antithrombotics/antiplatelets; Z87.11 Personal history of peptic ulcer disease; Z66 Do not resuscitate; Z11.52 Encounter for screening for COVID-19; Z95.810 Presence of automatic (implantable) cardiac defibrillator; Z96.653 Presence of artificial knee joint, bilateral
CPT/HCPCS: 36600; 70450; 71045; 80048; 80053; 81003; 81015; 82805; 83735; 83880; 84145; 85025; 85027; 87502; 87811; 93005; 93288; 94762; 97116; 97162; 97166; 97535; 99285; G0378

== ENCOUNTER 2023-12-29 14:19 | Emergency (ER) | payer MEDICARE, OTHER, SELFPAY ==
[2023-12-29 14:22] VITALS: BP 145/74
--- NOTE | 2023-12-29 15:30 | ED.GENMED ---
History of Present Illness
General
Chief Complaint: Male Genito-Urinary Symptoms
Source: patient
Exam Limitations: none
Time Seen by Provider: 12/29/23 15:29
Nursing documentation reviewed up to this point in time: agreed with
History of Present Illness
History of Present Illness:
88-year-old male with history of cardiomyopathy, CHF, HTN, HLD, pacemaker, BiV ICD, GERD, BPH, anxiety/depression presents today for inability to urinate since last night. Feels the urge to urinate. Denies fever/chills. Denies abdominal pain.
Pt was here for abd pain 12/23 and had neg U/A.
Past History
Past History
ED Past Medical History: CHF, GERD, HTN, Hypercholesterolemia and Other ( Ulcerated hiatal hernia, Prostatitis, ischemic cardiomyopathy, dementia, BPH)
ED Past Surgical History: Cardiac (Biventricular ICD), Orthopedic (Hugh knee replacements) and Other (Hiatal hernia surgery)
Patient has exhibited threatening behavior?: No
PSI?: No
Social History
Tobacco: Non-smoker
Alcohol: Occasional
Drug: None
Personal:
Living: assisted living ([facility])
Employment: Retired
Family History
Family History: Other (Noncontributory)
Review of Systems
Review of Systems
Allergies reviewed?: Yes
All Other Systems: ROS reviewed and negative except as documented in HPI and ROS
Constitutional: Denies fever
Respiratory: Denies trouble breathing
Cardiac: Denies chest pain
ABD/GI: Denies abdominal pain, nausea or vomiting
: Reports incontinence and difficulty voiding; Denies dysuria
Musculoskeletal: Denies edema
Skin: Reports no symptoms
Neurological: Denies weakness
Phy Exam
Physical Exam
Physical Exam:
GENERAL: No acute distress. A&Ox3.
CONSTITUTIONAL: Afebrile.
EYES: PERRL, conjunctivae normal
Neck: Supple
ENMT: moist mucus membranes, Pharynx nl
RESPIRATORY: Regular respirations, nonlabored, lungs clear.
CARDIOVASCULAR: Regular rate and rhythm, no murmurs, no rubs.
GI: Soft, nontender, normal BS
MUSCULOSKELETAL: Moves with ease. Well perfused.
SKIN: Warm, dry, pink
PSYCH: Normal mood and affect. Well kept, interactive and appropriate
NEUROLOGIC: Awake, alert and oriented. No focal neurological deficits
Course
Orders/Labs/Results
Orders:
Orders
12/29/23 17:26
Urinalysis Reflex To Culture Urgent
Date Specimen was Collected: 12/29/23
Time Specimen was Collected: 17:25
Vital Signs
Initial and Last Documented VS:
Initial Vital Signs
Temp Pulse Resp BP Pulse Ox
98.2 F 90 16 145/74 98
12/29/23 14:22 12/29/23 14:22 12/29/23 14:22 12/29/23 14:22 12/29/23 14:22
Last Documented Vital Signs
Temp Pulse Resp BP Pulse Ox
98.2 F 90 16 145/74 98
12/29/23 14:22 12/29/23 14:22 12/29/23 14:22 12/29/23 14:22 12/29/23 14:22
MDM/Problems Addressed
Differential Diagnosis Includes:
acute urine retention,
MDM/Problems Addressed:
88-year-old male with history of cardiomyopathy, CHF, HTN, HLD, pacemaker, BiV ICD, GERD, BPH, anxiety/depression presents today for inability to urinate since last night. Feels the urge to urinate. Denies fever/chills. Denies abdominal pain.
states pt was here in ED within the past 2 weeks for similar symptoms and saw Dr. Rodriguez a couple days after discharge
I can find no record of his being here for urine problems.
Afebrile, NAD
Pt was here for abd pain 12/23 and had neg U/A, CBC and CMP with no clinically significant abnormality. Had CT of abd/pelvis with IV contrast on 12/09: No acute finding. No indication to repeat these today
Bedside bladder scan shows urine of [address] Barry urologist, who agrees with inserting Hatfield cath and having patient follow-up with his urologist Dr. Rodriguez on Sunday
5:15 p.m.
Pt and state he just urinated into his depends. His depends are soaked.
Will hold off on the hatfield catheter
Pt has dementia and may not be a good historian.
Pt Depends changed, he did void in BR and U/A neg
Will have call Dr. Rodriguez on Sunday if he still has problems.
*Critical Care Note
Total Time (30-74mins, 75-104mins- exclusive of procedures): Not Applicable
ED Attending Note
-
Portions of this chart may have been created with voice recognition software.� Occasional wrong word or��sound alike� substitutions may have occurred due to the inherent limitations of voice recognition software.
Discharge Plan
Departure
Patient Disposition: Home (Routine Discharge)
Date of Disposition: 12/29/23
Time of Disposition: 17:16
Patient with high blood pressure during this ER visit?: No
Condition: Good
Discharge Problem:
Urinary incontinence
Instructions: Urinary incontinence in males
Prescriptions:
No Action
simvastatin 40 MG tablet
40 mg PO HS
omeprazole 40 MG capsule,delayed release(DR/EC)
40 mg PO BID
tamsulosin 0.4 MG capsule
0.4 mg PO DAILY
metoprolol succinate [Toprol XL] 50 mg Tablet Extended Release 24 Hr
50 mg PO HS
acetaminophen 325 mg Tablet
650 mg PO Q6HPRN PRN (Reason: mild pain/fever)
potassium chloride [Klor-Con M20] 20 mEq tablet,ER particles/crystals
20 meq PO DAILY
furosemide 20 mg tablet
20 mg PO DAILY
nifedipine 60 MG tablet extended release
60 mg PO DAILY Qty: 30 0RF
clopidogrel 75 mg Tablet
75 mg PO DAILY
cholecalciferol (vitamin D3) [Vitamin D3] 25 mcg (1,000 unit) Tablet,Chewable
50 mcg PO DAILY
donepezil 10 mg Tablet
10 mg PO DAILY
Referrals:
Dany Rodriguez MD [Active] - As needed
Richie Fonseca MD [Family Provider] -
Activity Restrictions/Additional Instructions:
As we discussed, you have a Depends full of urine now and you say that you feel better and know that you urinated.
Call Dr. Rodriguez's office Sunday if you continue to have trouble urinating.
Interventions
Interventions:
*Risk Screen - Suicide Last Done: 12/29/23 14:22
*General Assessment Last Done: 12/29/23 14:22
*Neglect/Abuse Screening Last Done: 12/29/23 14:22
ED- Fall Risk Assessment Last Done: 12/29/23 17:47
*Nursing Disposition Last Done: 12/29/23 17:47
ED-Male Genitourinary Assessment Last Done: 12/29/23 15:48
Discharge Date and Time
Discharge Date/Time: 12/29/23 17:49
Print Language: BULGARIAN
[2023-12-29 17:37] LABS: Urine Albumin Negative (Neg - Trace); Urine Bilirubin Negative (Negative); Urine Character Clear (Clear); Urine Color Straw; Urine Glucose Negative (Negative); Urine Ketone Negative (Negative); Urine Leukocyte Negative (Negative); Urine Nitrite Negative (Negative); Urine Occult Blood Negative (Negative); Urine Urobilinogen Negative (Neg - 1+)
== END 2023-12-29 17:49 | disposition home or self-care (01) ==
LOC: EMR 14:19
PROVIDERS: Registered Nurse; EMERGENCY PHYSICIAN Emergency Medicine; FAMILY PHYSICIAN Internal Medicine
DX: N39.498 Other specified urinary incontinence (principal); F03.90 Unspecified dementia, unspecified severity, without behavioral disturbance, psychotic disturbance, mood disturbance, and anxiety; I11.0 Hypertensive heart disease with heart failure; I50.9 Heart failure, unspecified; E78.00 Pure hypercholesterolemia, unspecified; K21.9 Gastro-esophageal reflux disease without esophagitis; N40.1 Benign prostatic hyperplasia with lower urinary tract symptoms; F41.9 Anxiety disorder, unspecified; F32.A Depression, unspecified; I25.5 Ischemic cardiomyopathy; M19.90 Unspecified osteoarthritis, unspecified site; Z95.810 Presence of automatic (implantable) cardiac defibrillator; Z96.653 Presence of artificial knee joint, bilateral; Z85.820 Personal history of malignant melanoma of skin
CPT/HCPCS: 99283; 51798; 81003

== ENCOUNTER → 2023-12-31 11:15 | Outpatient (REF) | payer MEDICARE, OTHER, SELFPAY ==
[2023-12-31 12:04] LABS: % Basophils 0.8 % (0-2); % Eosinophils 2.2 % (0-6); % Immature Granulocytes 0.4 % (0-0.5); % Lymphocytes 16.4 % (20.5-51.1); % Monocytes 9.6 % (1.7-9.3); % Neutrophils 70.6 % (42.2-75.2); Absolute Basophils 0.1 10^3/uL (0-0.2); Absolute Eosinophils 0.2 10^3/uL (0-0.7); Absolute Lymphocytes 1.2 10^3/uL (1.2-3.4); Absolute Monocytes 0.7 10^3/uL (0.1-0.6); Absolute Neutrophils 5.2 10^3/uL (1.4-6.5); Hematocrit 38.1 % (39.0-52.0); Hemoglobin 13.4 g/dL (13.0-18.0); Mean Corp Hgb Conc. 35.2 g/dL (33.0-37.0); Mean Corpuscular Hgb 32.6 pg (27.0-31.0); Mean Corpuscular Volume 92.7 fL (80.0-94.0); Mean Platelet Volume 10.9 fL (7.4-10.4); Nucleated Red Blood Cells % 0 % (-); Platelet Count 176 10^3/uL (130-400); Red Blood Cell Count 4.11 10^6/uL (4.70-6.10); Red Cell Dist. Width 13.2 % (11.5-14.5); White Blood Cell Count 7.3 10^3/uL (4.8-10.8)
[2023-12-31 12:18] LABS: Blood Urea Nitrogen 26 mg/dl (9-20); Calcium 9.1 mg/dl (8.4-10.2); Carbon Dioxide 24 mmol/L (22-30); Chloride 106 mmol/L (98-107); Glucose 94 mg/dl (70-99); Potassium 4.6 mmol/L (3.5-5.1); Sodium 144 mmol/L (135-145); eGFR > 60.00
== END ==
LOC: OLABWPC 11:15
PROVIDERS: ATTENDING PHYSICIAN Internal Medicine
DX: I50.9 Heart failure, unspecified (principal)
CPT/HCPCS: 36415; 80048; 85025

== ENCOUNTER 2024-01-02 15:28 | Emergency (ER) | payer MEDICARE, OTHER, SELFPAY ==
[2024-01-02 15:39] VITALS: BP 132/69
--- NOTE | 2024-01-02 17:48 | ED.GENMED ---
History of Present Illness
General
Chief Complaint: Male Genito-Urinary Symptoms
Source: patient and spouse
Exam Limitations: none
Time Seen by Provider: 01/02/24 17:36
Nursing documentation reviewed up to this point in time: agreed with
History of Present Illness
History of Present Illness:
Patient is an 88-year-old male with dementia, cardiomyopathy CHF hypertension pacemaker reflux anxiety depression presents to the ER with . reports patient states he has not urinated since this morning. Patient is a very poor historian
he does have a history of dementia as documented.
Patient was seen here December 26 :4 days ago complaining of difficulty urinating however did urinate on his own prior to being discharged and a Rm catheter was not inserted.
Past History
Past History
ED Past Medical History: CHF, GERD, HTN, Hypercholesterolemia and Other ( Ulcerated hiatal hernia, Prostatitis, ischemic cardiomyopathy, dementia, BPH)
ED Past Surgical History: Cardiac (Biventricular ICD), Orthopedic (Hugh knee replacements) and Other (Hiatal hernia surgery)
Patient has exhibited threatening behavior?: No
PSI?: No
Social History
Tobacco: Non-smoker
Alcohol: Occasional
Drug: None
Personal:
Living: assisted living ([facility])
Employment: Retired
Family History
Family History: Other (Noncontributory)
Review of Systems
Review of Systems
Allergies reviewed?: Yes
Unable to obtain full review of systems at this time due to: dementia
Other source history: family
All Other Systems: ROS reviewed and negative except as documented in HPI and ROS
Constitutional: Reports no symptoms; Denies fever, fatigue or chills
Cardiac: Reports no symptoms
ABD/GI: Reports no symptoms; Denies nausea or vomiting
: Reports difficulty voiding
Musculoskeletal: Reports no symptoms; Denies back pain
Skin: Reports no symptoms
Psychiatric: Reports no symptoms
Phy Exam
General Physical Exam
General Presentation: no apparent distress
General age: appears stated age
General Skin: warm and dry
General Habitus: normal
General Mental: alert
General Hydration: appears well hydrated
Gastrointestinal Exam
Gastrointestinal Exam: non tender and soft
Neurological Exam
Neurological Exam: alert and oriented x3
Musculoskeletal Exam
Musculoskeletal Exam: full ROM
Skin Exam
Skin Exam: normal color and warm/dry
Psychiatric Exam
Psychiatric Exam: normal mood/affect
Course
Orders/Labs/Results
Orders:
Orders
01/02/24 17:47
Bladder Scan- Treatment ONCE
01/02/24 17:53
IV Insert/Care/Rem.- Treatment PRN
01/02/24 18:55
Complete Blood Count/With Diff Urgent
Comprehensive Metabolic Panel Urgent
01/02/24 20:11
UA Reflex to Culture [Urinalysis Reflex To Culture] Urgent
Date Specimen was Collected: 01/02/24
Time Specimen was Collected: 20:10
Abnormal Lab Results
01/02/24
18:55
RBC 4.40 L 10^6/uL
(4.70-6.10)
MCH 32.5 H pg
(27.0-31.0)
Lymphocytes % 16.9 L %
(20.5-51.1)
BUN 26 H mg/dl
(9-20)
01/02/24 18:55
01/02/24 18:55
Vital Signs
Initial and Last Documented VS:
Initial Vital Signs
Temp Pulse Resp BP Pulse Ox
98.1 F 70 18 132/69 93
01/02/24 15:39 01/02/24 15:39 01/02/24 15:39 01/02/24 15:39 01/02/24 15:39
Last Documented Vital Signs
Temp Pulse Resp BP Pulse Ox
98.4 F 70 18 132/90 93
01/02/24 19:03 01/02/24 15:39 01/02/24 15:39 01/02/24 20:00 01/02/24 20:30
MDM/Problems Addressed
Differential Diagnosis Includes:
Not limited to urinary retention, UTI
MDM/Problems Addressed:
Patient is an 88-year-old male with dementia who presented to the ER complaining of urinary retention. Patient had several bladder scans and is retaining small amount between 200 and 300 cc of urine however has been able to initiate a urine stream
on his own and give a urine sample. Urine is not infected. He denies any fever chills. His white count is normal. He is followed by Dr. Rodriguez urology and is on Flomax once a day. Case reviewed with Dr. Alejo reducing salon attendant. As discussed will
increase his Flomax to twice a day with outpatient follow-up by urology in the next 1-2 weeks.
*Pulse Oximetry
Patient hypoxic: no
*Critical Care Note
Total Time (30-74mins, 75-104mins- exclusive of procedures): Not Applicable
Patient Management
Discussion with other providers: Maintenance Of Way Clerk (Dr Alejo urology )
ED Attending Note
-
Portions of this chart may have been created with voice recognition software.� Occasional wrong word or��sound alike� substitutions may have occurred due to the inherent limitations of voice recognition software.
Discharge Plan
Departure
Patient Disposition: Home (Routine Discharge)
Date of Disposition: 01/02/24
Time of Disposition: 21:14
Patient with high blood pressure during this ER visit?: Yes
Condition: Fair
Covid-19: Not Applicable
Discharge Problem:
Acute urinary retention
Instructions: Urinary Retention (DC), BLOOD PRESSURE
Prescriptions:
No Action
simvastatin 40 MG tablet
40 mg PO HS
omeprazole 40 MG capsule,delayed release(DR/EC)
40 mg PO BID
tamsulosin 0.4 MG capsule
0.4 mg PO DAILY
metoprolol succinate [Toprol XL] 50 mg Tablet Extended Release 24 Hr
50 mg PO HS
acetaminophen 325 mg Tablet
650 mg PO Q6HPRN PRN (Reason: mild pain/fever)
potassium chloride [Klor-Con M20] 20 mEq tablet,ER particles/crystals
20 meq PO DAILY
furosemide 20 mg tablet
20 mg PO DAILY
nifedipine 60 MG tablet extended release
60 mg PO DAILY Qty: 30 0RF
clopidogrel 75 mg Tablet
75 mg PO DAILY
cholecalciferol (vitamin D3) [Vitamin D3] 25 mcg (1,000 unit) Tablet,Chewable
50 mcg PO DAILY
donepezil 10 mg Tablet
10 mg PO DAILY
Referrals:
Dany Rodriguez MD [Active] -
Richie Fonseca MD [Family Provider] -
Activity Restrictions/Additional Instructions:
As discussed increase Flomax from once a day to twice a day and follow-up with urology in the next 1 to 2 weeks for reevaluation and bladder scan. Please call the office tomorrow to schedule an appointment. Return if any worsening of symptoms
Interventions
Interventions:
*General Assessment Last Done: 01/02/24 15:39
ED-Male Genitourinary Assessment Last Done: 01/02/24 19:03
Discharge Date and Time
Print Language: PALESTINIAN
[2024-01-02 18:56] VITALS: BP 148/66
[2024-01-02 19:00] VITALS: BP 146/69
[2024-01-02 19:02] VITALS: BMI 28.7
[2024-01-02 19:08] LABS: % Basophils 0.7 % (0-2); % Eosinophils 2.8 % (0-6); % Immature Granulocytes 0.3 % (0-0.5); % Lymphocytes 16.9 % (20.5-51.1); % Monocytes 9.2 % (1.7-9.3); % Neutrophils 70.1 % (42.2-75.2); Absolute Basophils 0.1 10^3/uL (0-0.2); Absolute Eosinophils 0.2 10^3/uL (0-0.7); Absolute Lymphocytes 1.2 10^3/uL (1.2-3.4); Absolute Monocytes 0.6 10^3/uL (0.1-0.6); Absolute Neutrophils 4.8 10^3/uL (1.4-6.5); Hematocrit 39.9 % (39.0-52.0); Hemoglobin 14.3 g/dL (13.0-18.0); Mean Corp Hgb Conc. 35.8 g/dL (33.0-37.0); Mean Corpuscular Hgb 32.5 pg (27.0-31.0); Mean Corpuscular Volume 90.7 fL (80.0-94.0); Mean Platelet Volume 10.1 fL (7.4-10.4); Nucleated Red Blood Cells % 0 % (-); Platelet Count 162 10^3/uL (130-400); Red Cell Dist. Width 13.1 % (11.5-14.5); White Blood Cell Count 6.9 10^3/uL (4.8-10.8)
[2024-01-02 19:24] LABS: ALT (SGPT) 37 U/L (0-50); AST (SGOT) 35 U/L (17-59); Albumin 4.5 g/dl (3.5-5.0); Alkaline Phosphatase 60 U/L (38-126); Blood Urea Nitrogen 26 mg/dl (9-20); Calcium 9.5 mg/dl (8.4-10.2); Carbon Dioxide 24 mmol/L (22-30); Chloride 104 mmol/L (98-107); Estimated Creatinine Clearance 58 ml/min; Glucose 99 mg/dl (70-99); Potassium 3.7 mmol/L (3.5-5.1); Sodium 140 mmol/L (135-145); Total Bilirubin 0.7 mg/dl (0.2-1.3); Total Protein 7.3 g/dl (6.3-8.2); eGFR > 60.00
[2024-01-02 20:00] VITALS: BP 132/90
[2024-01-02 20:31] LABS: Urine Albumin Negative (Neg - Trace); Urine Bilirubin Negative (Negative); Urine Character Clear (Clear); Urine Color Yellow; Urine Glucose Negative (Negative); Urine Ketone Negative (Negative); Urine Leukocyte Negative (Negative); Urine Nitrite Negative (Negative); Urine Occult Blood Negative (Negative); Urine Urobilinogen Negative (Neg - 1+)
[2024-01-02 21:00] VITALS: BP 131/72
== END 2024-01-02 21:51 | disposition home or self-care (01) ==
LOC: EMR 15:28
PROVIDERS: Nurse Practitioner; EMERGENCY PHYSICIAN Emergency Medicine; FAMILY PHYSICIAN Internal Medicine
DX: N40.1 Benign prostatic hyperplasia with lower urinary tract symptoms (principal); R33.8 Other retention of urine; I11.0 Hypertensive heart disease with heart failure; I50.9 Heart failure, unspecified; E78.00 Pure hypercholesterolemia, unspecified; F03.90 Unspecified dementia, unspecified severity, without behavioral disturbance, psychotic disturbance, mood disturbance, and anxiety; K21.9 Gastro-esophageal reflux disease without esophagitis; I25.5 Ischemic cardiomyopathy; Z95.0 Presence of cardiac pacemaker
CPT/HCPCS: 99283; 80053; 81003; 85025

== ENCOUNTER 2024-03-18 17:59 | Inpatient (IN) | payer MEDICARE, OTHER, SELFPAY ==
[2024-03-18] VITALS (29 sets, daily range): BP systolic 88–151; BP diastolic 27–115; BMI 29.7
--- NOTE | 2024-03-18 16:01 | CON.NEURO ---
Consultation
Order
Date of Consultation: 03/18/24
Requesting Provider: Jone Daniel DO
Reason for Consult: stroke alert
pre hospital activation: 15:44
Neurology Consultation Note.
HPI: This is an 89 year old man who presented to [facility] on 03/18/2024 with seizure. According to Ms. Howell the patient had sudden speech arrest with associated left gaze preference and shacking/UI/BI. She called medical
personnel who initiated assessment and called EMS. The patient reportedly had multiple similar episodes in the past but he would 'come out of them' in several minutes/hours.
According to Ms. Howell the patient would not want intubation.
Last time seen in [facility] 12:30 pm today.
ER VS: 106/93�91/49, 36.1C, heart rate�88, 86% on nonrebreather.
Mr. Howell was given 4 mg of Versed by EMS and 2 g of Keppra in the ER. No recurrent seizures.
PDMP: none
Labs: Glucose�215, magnesium�2.5, lactic acid�7.9, normal sodium, creatinine kinase�44 WBCs�14.5,
CT head wo contrast�no acute abnormalities
CTA head/neck�no hemodynamically significant stenosis.
PMH: dementia, chronic respiratory failure, HTN, LBBB, DLP, CM, OA, BPH, UI, SNHL, GERD
PSH: AICD, Yannick fundoplication, bilateral cataract surgery, BL TKA and ankle ORIF
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
All: NKDA
ROS: Unable due to encephalopathy
General: Tachypneic, on nonrebreather.
Cardio: Regular rate . Extremities are without cyanosis or edema.
Neuro:
Mental Status: Stuporous, does not attend to follow requests.
Cranial Nerves: Orthophoric primary gaze. Pupils are 3 mm, nonreactive. No blink to threat, negative corneals, no facial weakness.
Motor: Flaccid quadriplegia.
Reflexes: Negative clonus at the ankles
Sensory: Does not grimace or localizes noxious stimuli
Coordination: No tremors, clonic movements
Gait: deferred
Assessment and Plan:
I. Generalized tonic-clonic seizure.
II. Multifactorial encephalopathy (postictal, neurodegenerative, vascular)
III. Dementia
-Aspiration precautions.
-please check TSH, free T4, vit B12, ua, ua cx if consistent with goals of care
-Avoid medications, known to lower seizure threshold.
-EEG
-Continue Keppra 750 mg twice daily IV
-Palliative care consult palliative care consult
I personally reviewed all radiology and labs along with past medical records pertinent to current medical problems. Total time spent in patient care is 60 minutes.
Thank you for allowing us to participate in the care of this patient. We will continue to follow. Please do not hesitate to contact us with any questions or concerns.
Subjective/Objective
Subjective Data
Date of Service: March 18, 2024
Objective Data
Patient Allergies
No Known Allergies Allergy (Verified 01/02/24 15:39)
Medications
-
Home Medications
�Medication �Instructions �Recorded
simvastatin 40 mg tablet 40 mg PO HS High cholesterol 03/07/10
omeprazole 40 mg capsule,delayed 40 mg PO BID Gastrointestinal issue 04/07/16
release
tamsulosin 0.4 mg capsule 0.4 mg PO DAILY Urinary issue 05/26/21
metoprolol succinate 50 mg 50 mg PO HS Blood Pressure 06/16/22
tablet,extended release 24 hr
(Toprol XL)
acetaminophen 325 mg tablet 650 mg PO Q6HPRN PRN mild 10/15/23
pain/fever
furosemide 20 mg tablet 20 mg PO DAILY Fluid 10/15/23
Retention/Swelling
potassium chloride 20 mEq 20 meq PO DAILY Electrolyte 10/15/23
tablet,extended Repletion
release(part/cryst) (Efrem Mota)
nifedipine 60 mg tablet,extended 60 mg PO DAILY Blood pressure #30 10/16/23
release tabs
clopidogrel 75 mg tablet 75 mg PO DAILY Blood Clot 10/19/23
Prevention/Tx
cholecalciferol (vitamin D3) 25 50 mcg PO DAILY Supplement 12/10/23
mcg (1,000 unit) chewable tablet
(Vitamin D3)
donepezil 10 mg tablet 10 mg PO DAILY Alzheimer's 12/24/23
--- NOTE | 2024-03-18 16:02 | ED.CVA ---
History of Present Illness
General
Chief Complaint: CVA/TIA Symptoms
Source: ambulance crew
Exam Limitations: altered mental status
Time Seen by Provider: 03/18/24 16:02
Nursing documentation reviewed up to this point in time: agreed with
Onset of Stroke Symptoms
Onset of symptoms known: Yes
Date of onset of symptoms: 03/18/24
Time pt last seen normal is known: Yes
Date last time pt seen normal: 03/18/24
Time last time pt seen normal: 12:30
History of Present Illness
History of Present Illness:
89-year-old male presents Emergency Department due to altered mental status, last seen normal by medical professional at 12:30 PM. EMS evaluated him, and he had a leftward gaze and then had a seizure. No history of seizures. Stroke alert called.
Patient arrives with loss of bowel and bladder. 4 mg Versed given. This stopped seizure.
Past History
Past History
ED Past Medical History: CHF, GERD, HTN, Hypercholesterolemia and Other ( Ulcerated hiatal hernia, Prostatitis, ischemic cardiomyopathy, dementia, BPH)
ED Past Surgical History: Cardiac (Biventricular ICD), Orthopedic (Hugh knee replacements) and Other (Hiatal hernia surgery)
Patient has exhibited threatening behavior?: No
PSI?: No
Social History
Tobacco: Non-smoker
Alcohol: Occasional
Drug: None
Personal:
Living: assisted living ([facility])
Employment: Retired
Family History
Family History: Other (Noncontributory)
Review of Systems
Review of Systems
Allergies reviewed?: Yes
Unable to obtain full review of systems at this time due to: non-verbal
All Other Systems: Not applicable
Respiratory: Reports trouble breathing
Phy Exam
Physical Exam
Physical Exam:
Physical Exam
General: Sonorous respirations, incontinent of stool and urine
Neck: supple. no meningeal signs. normal posterior pharynx
Heart: s1/s2 regular rate and rhythm, no murmur. equal radial
pulses.
HEENT: Pupils equal round reactive to light, EOMI
Lungs: Moderate respiratory distress, sonorous respirations
Abdomen: normal bowel sounds. not tender. no CVAT
Neuro: Obtunded, cannot follow commands
Skin: no rash
Psychiatric: Obtunded
Extremities: no edema. no calf tenderness. negative homans. good distal pulses
Course
Orders/Labs/Results
Orders:
Orders
03/18/24 15:53
Electrocardiogram (*1) Urgent
Reason for Study: TIA/Stroke
CT HEAD STROKE ALERT W/o Cont Urgent
Comment:
Reason For Exam: UNRESPONSIVE, R SIDED GAZE
03/18/24 15:54
EKG- Treatment ONCE
03/18/24 15:58
CT HEAD/NECK ANG STROKE ALERT Urgent
Reason For Exam: SEIZURE ALTERED MENTAL
03/18/24 16:02
Levetiracetam Injectable [Keppra] 1,000 mg IV NOW STA
03/18/24 16:03
CR Chest Portable - 1 View Urgent
Comment:
Reason For Exam: short of breath, sonorous respirations
Reason Study Needs to be Portable: Patient Unstable
03/18/24 16:11
Levetiracetam Injectable [Keppra] 1,000 mg IV NOW STA
03/18/24 16:15
Complete Blood Count/With Diff Urgent
Comprehensive Metabolic Panel Urgent
Magnesium Routine
PTT Urgent
Prothrombin Time Urgent
Total CK [Creatine Phosphokinase] Routine
Troponin I Urgent
03/18/24 16:16
Lactate Level [Lactic Acid] Urgent
03/18/24 17:27
Urinalysis Routine
Date Specimen was Collected: 03/18/24
Time Specimen was Collected: 16:33
Urine Microscopic Routine
Date Specimen was Collected: 03/18/24
Time Specimen was Collected: 16:33
03/18/24 17:45
Admit/Transfer Patient As Directed
Co-Sign Provider:
Level of Care: Inpatient admission
Assign to:: IMU- Intermediate Care
Physician / Group: floyd
Diagnosis: seizure, pna
Reason for Hospitalization: seizure, pna
Expected length of stay greater than two midnights?: Yes
ELOS- Estimated Length of Stay in days: 2
I certify the patient meets the requirements for IP care: Yes
PRN Pain Medication Management As Directed
May give lesser potent ordered pain med per pt: Yes
preference::
Protocol:: Medication orders for pain may be administered in a
manner that supports deferring to patient preference
when the pt is:
- Requesting an ordered lesser potent pain medication.
Least to most potent pain medications are defined
as: acetaminophen < NSAID < tramadol < opioids
(morphine, oxycodone, hydromorphone).
- Requesting a lesser dose of the same medication IF
ORDERED.
- Requesting a less intrusive route of administration
if both routes are prescribed by the provider (PO <
IV).
03/18/24 17:46
Code Status As Directed
Resuscitation Status: Do not resuscitate
Reached after discussion with pt or family/Healthcare POA: Yes
DNR Bracelet Application ONCE
03/18/24 18:21
COVID-19 Antigen Urgent
Source: Nasal Swab
Influenza A+B Rapid Molecular Urgent
LEATHA Source: Nasal Swab
Specimen Description:
03/18/24 20:00
Levetiracetam Injectable [Keppra] 750 mg IV Q12
Abnormal Lab Results
03/18/24 03/18/24 03/18/24
16:15 16:16 17:27
WBC 14.5 H 10^3/uL
(4.8-10.8)
RBC 4.25 L 10^6/uL
(4.70-6.10)
MCV 98.6 H fL
(80.0-94.0)
MCH 32.2 H pg
(27.0-31.0)
MCHC 32.7 L g/dL
(33.0-37.0)
Abs Immat Gran (auto) 0.1 H 10^3/uL
(0-0.05)
Absolute Neuts (auto) 7.9 H 10^3/uL
(1.4-6.5)
Absolute Lymphs (auto) 4.5 H 10^3/uL
(1.2-3.4)
Absolute Monos (auto) 1.5 H 10^3/uL
(0.1-0.6)
Immature Gran % 0.7 H %
(0-0.5)
Monocytes % 10.4 H %
(1.7-9.3)
PT 15.3 H Sec
(11.4-14.6)
BUN 23 H mg/dl
(9-20)
Glucose 215 H mg/dl
(70-99)
Lactic Acid 7.9 H* mmol/L
(0.7-2.0)
Magnesium 2.5 H mg/dl
(1.6-2.3)
Creatine Kinase 44 L U/L
(55-170)
Urine WBC 11-15 A /HPF
(0-5)
Urine Bacteria Few A
(Negative)
Urine Albumin 2+ A
(Neg - Trace)
03/18/24 16:15
03/18/24 16:15
Vital Signs
Initial and Last Documented VS:
Initial Vital Signs
Pulse Resp BP Pulse Ox
88 30 106/93 86
03/18/24 16:02 03/18/24 16:02 03/18/24 16:02 03/18/24 16:02
Last Documented Vital Signs
Temp Pulse Resp BP Pulse Ox
96.9 F L 89 33 106/79 83
03/18/24 16:37 03/18/24 18:15 03/18/24 18:15 03/18/24 18:10 03/18/24 18:10
MDM/Problems Addressed
Differential Diagnosis Includes:
CVA, intracranial hemorrhage, seizure, electrolyte derangement, concern for sepsis, pneumonia
MDM/Problems Addressed:
89-year-old male with seizure, unresponsive. Sepsis, pneumonia. IV fluids given. Neurology consulted. Zosyn given. Dementia. Discussed with at length, she does not want aggressive treatment, specifically no CPR, or intubation.
Chronic conditions affecting care: HTN
Acute Exacerbation and/or Progression of Chronic Illness: HTN
*Radiology
Radiology exam reviewed: radiology read reviewed (CT head, CTA chest x-ray showing right basilar opacity no acute findings on CTs of brain)
*Pulse Oximetry
Patient hypoxic: yes
*EKG
Interpreted by ED Provider?: Yes
EKG Intrepretation Date: 03/18/24
EKG Intrepretation Time: 16:56
Interpretation: abnormal
Comparison EKG: changes noted
Heart Rate: 86
Rate: normal
Rhythm: av sequential
Peel: left axis deviation
Interval: normal interval
QRS Pattern: left bundle branch block
Ischemia: no ischemia
*[employer] Interpretation
Rate: normal
Interpretation: abnormal
Heart Rate: 85
Rhythm: av sequential
*Critical Care Note
Total Time (30-74mins, 75-104mins- exclusive of procedures): 45
comment:
Critical care statement: A total of 45 minutes of critical care time was provided for this patient. This includes management of unstable vital signs, evaluation of the patient at bedside, reviewing the patient's pertinent medical records, discussion
with consultants, review of old EKGs and review of pertinent medical records. This time with separate from time utilized to perform the aforementioned documented procedures
Data Reviewed
Review of Other/Old Records Reveals: Labs (prior bun cr 26/0.9)
Source: records
Prescriptions/Medications Considered But Not Given:
TNK, iat not indicated
Patient Management
Social determinants of health affecting care: Living situation and Strong social support
Discussion with other providers: Hospitalist and Transportation Aide (neurology)
ED Attending Note
-
Portions of this chart may have been created with voice recognition software.� Occasional wrong word or��sound alike� substitutions may have occurred due to the inherent limitations of voice recognition software.
Discharge Plan
Departure
Patient Disposition: Admit
Date of Disposition: 03/18/24
Time of Disposition: 17:11
Admit to: IMU
Presentation/result/management discussed w/ accepting MD/DO: Hospitalist
Patient with high blood pressure during this ER visit?: No
Condition: Serious
Discharge Problem:
Hypoxia, Acute alteration in mental status, Seizure, Interstitial lung disease, Pneumonia
Interventions
Interventions:
*Risk Screen - Suicide Last Done: 03/18/24 16:00
*General Assessment Last Done: 03/18/24 16:36
*Neglect/Abuse Screening Last Done: 03/18/24 16:00
*ED COVID-19 Vaccine History Last Done: 03/18/24 16:36
ED- Pulmonary Assessment Last Done: 03/18/24 16:38
ED- Neurological Assessment Last Done: 03/18/24 16:38
ED- Cardiac Assessment Last Done: 03/18/24 16:38
ED Swallowing Screen Last Done: 03/18/24 16:38
[2024-03-18 16:23] LABS: % Basophils 0.8 % (0-2); % Eosinophils 2.4 % (0-6); % Immature Granulocytes 0.7 % (0-0.5); % Lymphocytes 31.2 % (20.5-51.1); % Monocytes 10.4 % (1.7-9.3); % Neutrophils 54.5 % (42.2-75.2); Absolute Basophils 0.1 10^3/uL (0-0.2); Absolute Eosinophils 0.4 10^3/uL (0-0.7); Absolute Immature Granulocytes 0.1 10^3/uL (0-0.05); Absolute Lymphocytes 4.5 10^3/uL (1.2-3.4); Absolute Monocytes 1.5 10^3/uL (0.1-0.6); Absolute Neutrophils 7.9 10^3/uL (1.4-6.5); Hematocrit 41.9 % (39.0-52.0); Hemoglobin 13.7 g/dL (13.0-18.0); Mean Corp Hgb Conc. 32.7 g/dL (33.0-37.0); Mean Corpuscular Hgb 32.2 pg (27.0-31.0); Mean Corpuscular Volume 98.6 fL (80.0-94.0); Mean Platelet Volume 9.9 fL (7.4-10.4); Nucleated Red Blood Cells % 0 % (-); Platelet Count 204 10^3/uL (130-400); Red Blood Cell Count 4.25 10^6/uL (4.70-6.10); Red Cell Dist. Width 12.8 % (11.5-14.5); White Blood Cell Count 14.5 10^3/uL (4.8-10.8)
[2024-03-18 16:37] LABS: INR 1.18; PT 15.3 Sec (11.4-14.6)
[2024-03-18 16:38] LABS: APTT 32.5 Sec (23.4-35.0)
[2024-03-18 16:39] LABS: ALT (SGPT) 44 U/L (0-50); AST (SGOT) 53 U/L (17-59); Albumin 4.2 g/dl (3.5-5.0); Alkaline Phosphatase 74 U/L (38-126); Blood Urea Nitrogen 23 mg/dl (9-20); Calcium 8.4 mg/dl (8.4-10.2); Carbon Dioxide 23 mmol/L (22-30); Chloride 100 mmol/L (98-107); Estimated Creatinine Clearance 45 ml/min; Glucose 215 mg/dl (70-99); Magnesium 2.5 mg/dl (1.6-2.3); Potassium 3.9 mmol/L (3.5-5.1); Sodium 138 mmol/L (135-145); Total Bilirubin 0.4 mg/dl (0.2-1.3); Total Protein 6.7 g/dl (6.3-8.2); eGFR > 60.00
[2024-03-18 16:40] LABS: Creatine Phosphokinase 44 U/L (55-170)
[2024-03-18] MEDS: KEPPRA 1000 MG IV ×2 (16:41→16:42)
[2024-03-18 16:43] LABS: Lactic Acid 7.9 mmol/L (0.7-2.0)
[2024-03-18 16:48] LABS: Troponin I < 0.012 ng/ml
[2024-03-18 17:37] LABS: Urine Albumin 2+ (Neg - Trace); Urine Bilirubin Negative (Negative); Urine Character Slightly Cloudy (Clear); Urine Color Yellow; Urine Glucose Negative (Negative); Urine Ketone Negative (Negative); Urine Leukocyte Negative (Negative); Urine Nitrite Negative (Negative); Urine Occult Blood Negative (Negative); Urine Specific Gravity 1.015 (<1.030); Urine Urobilinogen Negative (Neg - 1+); Urine pH 6.5 (5.0-9.0)
[2024-03-18 17:47] LABS: Urine Bacteria Few (Negative); Urine Squamous Cell 0-2 /LPF (Few)
[2024-03-18 17:48] LABS: Urine Red Blood Cell 0-2 /HPF (0-2)
--- NOTE | 2024-03-18 17:55 | HPS.HSE ---
Addendum entered and electronically signed by Denny Rios MD 03/18/24 21:03:
Patient became more hypoxemic requiring nonrebreather and later high flow with nonrebreather still saturating 80%. Discussed with patient's came back to the hospital and agrees with comfort measures to make patient comfortable.
Original Note:
Family Physician
-
Family Physician: Richie Fonseca
Chief Complaint
-
seizure
History of Present Illness
89-year-old male past medical history of dementia, hypertension, dilated cardiomyopathy with AICD, peptic ulcer disease, GERD, BPH, presenting with altered mental status. As per his he was sitting in a recliner and then started mumbling and
shortly after became unresponsive. She called the staff at senior care who called EMS.
She states that he had similar episodes of unresponsiveness at least twice most recently last year for which she came to the emergency room but recovered quickly and never had workup for seizures.
He was last seen normal by medical charge entry specialist at 12:30 PM. EMS evaluated him and he had leftward gaze and then had a seizure. No prior history of seizures. Stroke alert was called. Patient arrives with loss of bowel and bladder function. 4
mg Versed given which terminated seizure.
He does not smoke or drink alcohol.
Medical History
Past Medical History
Past Medical History: Reports Other (dementia, hypertension, dilated cardiomyopathy with AICD, peptic ulcer disease, GERD, BPH)
Past Surgical History: Reports Other (Cardiac (Biventricular ICD), Orthopedic (Hugh knee replacements) and Other (Hiatal hernia surgery))
Social History
Tobacco: Non-smoker
Alcohol: None
Drug: None
Family History
Family History: Not pertinent
Allergies / Home Medications
Allergies reflects when Allergies were last updated in [employer].
Home Medications with original date entered in [employer]
Allergy/Medication List:
Allergies
Allergy/AdvReac Type Severity Reaction Status Date / Time
No Known Allergies Allergy Verified 01/02/24 15:39
Home Medications
simvastatin 40 mg tablet 40 mg PO HS High cholesterol 03/07/10
omeprazole 40 mg capsule,delayed release 40 mg PO BID Gastrointestinal issue 04/07/16
tamsulosin 0.4 mg capsule 0.4 mg PO BID Urinary issue 05/26/21
metoprolol succinate 50 mg tablet,extended release 24 hr (Toprol XL) 50 mg PO HS Blood Pressure 06/16/22
acetaminophen 325 mg tablet 650 mg PO Q6HPRN PRN mild pain/fever 10/15/23
furosemide 20 mg tablet 20 mg PO DAILY Fluid Retention/Swelling 10/15/23
potassium chloride 20 mEq tablet,extended release(part/cryst) (Klor-Con M) 20 meq PO DAILY Electrolyte Repletion 10/15/23
nifedipine 60 mg tablet,extended release 60 mg PO DAILY Blood pressure #30 tabs 10/16/23
clopidogrel 75 mg tablet 75 mg PO DAILY Blood Clot Prevention/Tx 10/19/23
cholecalciferol (vitamin D3) 25 mcg (1,000 unit) chewable tablet (Vitamin D3) 50 mcg PO DAILY Supplement 12/10/23
donepezil 10 mg tablet 10 mg PO HS Alzheimer's 12/24/23
risperidone 0.5 mg tablet 0.5 mg PO HS 03/18/24
Review of Systems
-
History Source: Patient
A 12 point ROS was completed and negative except as noted: Yes
Constitutional: Reports No Symptoms
EENT: Reports No Symptoms
Respiratory: Reports No Symptoms
Cardiac: Reports No Symptoms
Abdomen/GI: Reports No Symptoms
: Reports No Symptoms
Musculoskeletal: Reports No Symptoms
Skin: Reports No Symptoms
Neurological: Reports No Symptoms
Endocrine: Reports No Symptoms
Hematologic/Lymphatic: Reports No Symptoms
Psych: Reports No Symptoms
Physical Exam
Vital Signs
Vital Signs
Temp Pulse Resp BP Pulse Ox
96.9 F L 89 22 108/67 91
03/18/24 16:37 03/18/24 17:45 03/18/24 17:45 03/18/24 17:40 03/18/24 17:30
Physical Exam
General: Well Developed, Well Nourished and No Apparent Distress
HEENT: NormoCephalic, Moist mucous membranes and Atraumatic
Respiratory: Clear
Cardiac: S1/S2 and Regular Rhythm; No Murmur or Rub
GI: Soft, Non Tender, Non Distended and Normal Bowel Sounds; No Organomegaly
Rectal: Deferred by Provider
Musculoskeletal: No Clubbing, No Cyanosis and No Edema
Skin: No Rash
Neuro: Nonfocal/grossly intact
Laboratory Results
-
03/18/24 16:15
03/18/24 16:15
Laboratory Results
PT 15.3 Sec (11.4-14.6) H 03/18/24 16:15
INR 1.18 03/18/24 16:15
APTT 32.5 Sec (23.4-35.0) 03/18/24 16:15
Lactic Acid 7.9 mmol/L (0.7-2.0) H* 03/18/24 16:16
Total Bilirubin 0.4 mg/dl (0.2-1.3) 03/18/24 16:15
AST 53 U/L (17-59) 03/18/24 16:15
ALT 44 U/L (0-50) 03/18/24 16:15
Alkaline Phosphatase 74 U/L (38-126) 03/18/24 16:15
Troponin I < 0.012 ng/ml 03/18/24 16:15
Data Reviewed
-
Lab Data: Labs Reviewed by me
Old Records: Reviewed
Impression/Plan
-
IMPRESSION:
PLAN:
# Sepsis (hypothermia, tachycardia, leukocytosis, lactic acidosis) secondary to seizure/pneumonia
-See individually below
# Seizure
-Keppra loaded with 1000 mg, 750 mg twice daily continued
-CT head showed no acute abnormality
-CTA head and neck showing no significant disease apart from moderate partially calcific atherosclerotic plaque at the aortic arch
-Likely will require MRI brain/EEG
-Neurochecks per protocol
-IV fluids
-Trend lactate
-Neurology consulted
# Hypoxemia secondary to presumed pneumonia likely aspiration
-CTA head and neck shows interstitial airway disease suggesting interstitial pneumonia at the apical segments of both lower lobes and posterior segment of the right upper lobe
-Check COVID and influenza
-Chest x-ray shows right basilar opacity
-Zosyn
Dementia
-Hold donepezil, Risperdal
Essential hypertension
-Hold nifedipine, metoprolol
Dilated cardiomyopathy with AICD
-Hold Lasix
-Unclear on why on Plavix, hold
Peptic ulcer disease/GERD
-Hold omeprazole
BPH
-Hold tamsulosin
Hyperlipidemia
-Hold statin
DNR/DNI
DVT prophylaxis�SCDs
N.p.o.
[2024-03-18 18:42] LABS: COVID-19 Antigen Negative (Negative)
[2024-03-18] MEDS: MORPHINE SULFATE 2 MG IV ×3 (20:05→22:33)
[2024-03-18] MEDS: ZOFRAN 4 MG IV (20:55)
[2024-03-18] MEDS: NSS (PRESERVATIVE FREE) 10 ML IV (21:23)
[2024-03-18] MEDS: ATIVAN 1 MG IV ×2 (21:24→22:31)
[2024-03-18] MEDS: KEPPRA 750 MG IV (21:27)
[2024-03-18] MEDS: NSS 1000 IV (21:31)
[2024-03-18] MEDS: LEVSIN ORAL DROPS 0.125 MG SL (21:32)
[2024-03-18] MEDS: ROBINUL 0.2 MG IV (22:34)
[2024-03-18] MEDS: TRANSDERM-SCOP 1 PATCH TRANSDERM (22:49)
[2024-03-18] MEDS: TYLENOL/FEVERALL 650 MG RECTAL (23:53)
[2024-03-18] MEDS: MORPHINE SULFATE IV (23:58)
--- NOTE | 2024-03-19 01:07 | W.PN.DEATH ---
Addendum entered and electronically signed by COLLEEN Rousseau 03/19/24 01:35:
supervisor typesetting updated as <23hr from admit
Body release by supervisor typesetting Jo Reaves
Original Note:
Pronouncement of
-
Called to see patient to pronounce.
No spontaneous heart tones or respirations noted.
Patient not responsive to verbal stimuli.
Patient is pronounced .
Time of : 00:07
Date of : 03/19/24
Cause of : Acute hypoxic respiratory failure, seizure, aspiration
Family Notified: Yes ( was with patient at time of .)
--- NOTE | 2024-03-19 10:32 | VNURNOTE ---
Chart reviewed. Patient is current with [facility] nursing. Will continue to follow hospital course and DC plans.
== END 2024-03-19 00:07 | disposition expired | DRG 177 ==
LOC: ED 17:59
PROVIDERS: ADMITTING PHYSICIAN Hospitalist; CONSULT PHYSICIAN Psychiatry & Neurology Neurology; EMERGENCY PHYSICIAN Emergency Medicine; FAMILY PHYSICIAN Internal Medicine
DX: J69.0 Pneumonitis due to inhalation of food and vomit (principal); J96.01 Acute respiratory failure with hypoxia; I42.0 Dilated cardiomyopathy; R56.9 Unspecified convulsions; F03.90 Unspecified dementia, unspecified severity, without behavioral disturbance, psychotic disturbance, mood disturbance, and anxiety; I11.0 Hypertensive heart disease with heart failure; I50.9 Heart failure, unspecified; Z66 Do not resuscitate
CPT/HCPCS: 70450; 70496; 70498; 71045; 80053; 81003; 81015; 82550; 83605; 83735; 84484; 85025; 85610; 85730; 87502; 87811; 93005; Q9967